=== PATIENT | male | born 1950 | race Caucasian/White ===

== ENCOUNTER → 2018-08-24 08:01 | Outpatient (CLI) | payer MEDICARE, OTHER, SELFPAY ==
[2018-08-24 10:43] LABS: Absolute Lymphocyte Count 1.34 X10^3/ul (0.83-4.51); Absolute Neutrophil Count 2.3 X10^3/uL (2.0-7.7); Basophil# 0.01 X10^3/uL; Basophil% 0.2 % (0-1); Eosinophil# 0.07 X10^3/uL; Eosinophils% 1.7 % (0-5); Hematocrit 42.5 % (40-54); Hemoglobin 14.3 g/dl (13.0-16.5); Lymphocyte # 1.34 X10^3/ul (4.0); Lymphocyte % 32.8 % (19-41); Mean Corp Hgb Conc 33.6 g/gl (32-36); Mean Corpuscular Hgb 30.4 pg (27.0-32.0); Mean Corpuscular Volume 90.4 fL (80-94); Monocyte# 0.38 X10^3/uL; Monocyte% 9.3 % (0-10); Neutrophil # 2.28 X10^3/uL (2.7-7.7); Platelet Count 303 K/mm3 (150-450); RBC Distribution Width CV 13.5 % (11.6-14.6); RBC Distribution Width SD 44.8 fl (35.1-43.9); White Blood Count 4.1 K/mm3 (4.4-11.0)
[2018-08-24 10:47] LABS: POSITIVE COUNT NO; POSITIVE DIFFERENTIAL NO; POSITIVE MORPHOLOGY NO
[2018-08-24 11:30] LABS: Cholesterol 163 mg/dL (200); High Density Lipoprotein 44 mg/dL; Triglycerides 87 mg/dL; Very Low Density Lipoprotein 17 mg/dL (5-40)
[2018-08-24 12:11] LABS: Hemoglobin A1c 5.9 % (4.2-6.3)
--- OUTSIDE RECORDS SUMMARY | 2018-10-10 03:04 | XMS RPT_ITS | Clinical Summary ---
:1950 Author Organization [place] [employer] [facility] Address [facility] [place] [address] Phone Care Team Providers Name Role Phone Chen Guzman Unavailable Conditions or Problems Problem Name Problem Onset Status Entry Provider Comment Standard Annotate Code Date Date Description Laceration S61.012A Active Dru De León Laceration without (ICD-10-CM) / Pascual PIKE without foreign body foreign body of left thumb of left thumb without without damage to damage to nail, initial nail, initial encounter encounter Laceration 087680575 Active Mili Diop Laceration - (SNOMED CT) / Hernán injury 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 Trigger 1348504 6519/09 Active Magda S Acquired finger of (SNOMED CT) / Wiseman trigger right ring 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 finger finger Carpal tunnel G56.02 Active Eligio S Carpal tunnel syndrome, (ICD-10-CM) / Rodrigo syndrome, left upper left upper limb limb Pain in left 08299634 Active Eligio S Pain in finger (SNOMED CT) / Rodrigo finger Trigger M65.342 Active Eligio S Trigger finger, left (ICD-10-CM) / Rodrigo finger, left ring finger ring finger Prepatellar 17794153 Active Eligio S Prepatellar bursitis of (SNOMED CT) / Rodrigo bursitis left knee Knee pain, 88054363 Active Eligio S Knee pain left (SNOMED CT) / Rodrigo ENCOUNTER FOR 32230260 Active Tremayne Mills Removal of REMOVAL OF (SNOMED CT) / Kwasi BOB suture SUTURES LACERATION, 148139656 Active Tremayne M Laceration of FOREHEAD (SNOMED CT) / Kwasi BOB forehead Medications Medication Instructions Start Date Stop Date Generic Name NDC Provider MELOXICAM 15 MG 1 po daily MELOXICAM [id number] Eligio Wallace Medications Administered No information available. Allergies, Adverse Reactions, Alerts Allergy Name Reaction Description Start Date Severity Status Provider PENCILLIN rash Mild Active Lucinda Clements Results Date Name Value Unit Range Flag Description Lab Report: Basic Metabolic Profile (BMP) ANION GAP 5 5-15 anion gap, serum CO2 29.0 mmol/L 21.0-32.0 carbon dioxide, venous blood CHLORIDE 101 mmol/L 98-107 chloride, serum POTASSIUM 4.4 mmol/L 3.5-5.1 potassium, serum SODIUM 135 mmol/L 136-145 L sodium, serum CALCIUM 9.1 mg/dL 8.5-10.1 calcium, serum BUN/CREAT 21.0 RATIO 10-20 H urea nitrogen/creatinine ratio, serum GFRAA 114 mL/min >60 Glomerular Filtration rate GFR EST 94 mL/min >60 estimated glomerular filtration rate CREATININE 0.86 mg/dL 0.70-1.30 creatinine, serum BUN 18 mg/dL 7-18 urea nitrogen, blood GLUCOSE SER 91 mg/dL 70-110 blood glucose Lab Report: CRP CRP 1.24 mg/dL Units converted. See lab report H C-reactive protein, serum for original value. Replaced Document: (P) Erythrocyte Sed Rate ESR 25 mm/h 0-20 H erythrocyte sedimentation rate Lab Report: CBC W/Diff, Automated LYMPHCT AUTO 1.24 X10 3/UL 10*3/mm3 0.83-4.51 lymphocyte count, blood, automated ANC 5.2 X10 3/UL 10*3/mm3 2.0-7.7 neutrophil count, blood IMM GRANU % 0.100 % 0.0-0.9 immature granulocytes, percentage of total cells, blood BASOPHIL % 0.3 % 0-1 basophils as percent of blood leukocytes EOSINOPHIL % 0.8 % 0-5 eosinophils as percent of blood leukocytes MONOCYTE % 7.9 % 0-10 monocytes as percent of blood leukocytes LYMPHS % 17.4 % 19-41 L lymphocytes as percent of blood leukocytes PMN % 73.5 % 47-70 H neutrophils as percent of blood leukocytes MPV 9.8 fL 6.2-12.0 mean platelet volume PLATELETS 459 10*3/mm3 150-450 H platelet count RDW-SD 42.1 fL 35.1-43.9 red blood cell distribution width, size density RDW 13.1 % 11.6-14.6 red blood cell distribution width MCHC RBC 33.7 G/GL g/dL 32-36 mean corpuscular hemoglobin concentration, RBC MCH 30.0 pg 27.0-32.0 mean corpuscular hemoglobin, RBC MCV 89.1 fL 80-94 mean corpuscular volume, RBC HCT 38.6 % 40-54 L hematocrit, blood HGB 13.0 g/dL 13.0-16.5 hemoglobin, blood RBC M/UL 4.33 10*6/uL 4.6-6.2 L red blood count WBC BLOOD 7.1 10*9/L 4.4-11.0 leukocyte (white blood cells) count, blood Office Visit: UC: cut L thumb on sheet metal [id number] Not indicated Smoking cessation education (procedure) SMOK STATUS Current every day smoker Tobacco use [facility] MEDS REVIEW Done Documentation of current medications (procedure) Nurse Visit: suture removal FALLRSKASSES No Fall risk assessment Plan of Care Type Date Detail Ref[facility], [address] [place] [address], [address] Referral [facility], [address] [place] [address], [address] Pending order *CBC with Differential Pending order *CRP - C-Reative Protein Pending order *Sedimentation Rate (ESR) Pending order *BMP Patient education LACERATION Procedures Code Procedure Name Date Entry Date CPT-95963 Wound Repair; 2.6 cm to 7.5 cm CPT-83041 Arthrocentesis, aspiration and/or injection; joint (fingers, toes) 0667-1 *BMP 58544-1 *CRP - C-Reative Protein 0184-1 *CBC with Differential 81908-6 *Sedimentation Rate (ESR) Vital Signs Date Name Value Unit Description BMI (Body Mass Index) 26.38 kg/m2 Body Mass Index [Ratio] Body Temperature 98.0 [degF] temperature E&M BP Diastolic 82 mm[Hg] blood pressure, diastolic - 8462-4 BP Systolic 120 mm[Hg] blood pressure, systolic - 8480-6 Heart Rate 85 /min pulse rate E&M - 8867-4 Height 70.25 [in_us] height E&M - 8302-2 Respiratory Rate 14 /min respiratory rate E&M - 9279-1 Weight Measured 185.2 [lb_av] weight E&M - 3141-9
--- OUTSIDE RECORDS SUMMARY | 2018-10-10 03:04 | XMS RPT_ITS | Clinical Summary ---
:1950 Author Organization [facility] Address [facility] [place] [address] Phone Care Team Providers Name Role Phone Mili Jim LPN Unavailable Unavailable Conditions or Problems Problem Name Problem Onset Status Entry Provider Comment Standard Annotate Code Date Date Description Laceration S61.012A Active Dru De León Laceration without (ICD-10-CM) / Pascual PIKE without foreign body foreign body of left thumb of left thumb without without damage to damage to nail, initial nail, initial encounter encounter Laceration 741416990 Active Mili Diop Laceration - (SNOMED CT) / Hernán injury 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 Trigger 3986327 9330/09 Active Magda S Acquired finger of (SNOMED CT) / Wsieman trigger right ring 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 finger finger Carpal tunnel G56.02 Active Eligio S Carpal tunnel syndrome, (ICD-10-CM) / Rodrigo syndrome, left upper left upper limb limb Pain in left 33346839 Active Eligio S Pain in finger (SNOMED CT) / Rodrigo finger Trigger M65.342 Active Eligio S Trigger finger, left (ICD-10-CM) / Rodrigo finger, left ring finger ring finger Prepatellar 78277059 Active Eligio S Prepatellar bursitis of (SNOMED CT) / Rodrigo bursitis left knee Knee pain, 52536159 Active Eligio S Knee pain left (SNOMED CT) / Rodrigo ENCOUNTER FOR 65968780 Active Tremayne Mills Removal of REMOVAL OF (SNOMED CT) / Kwasi BOB suture SUTURES LACERATION, 003975205 Active Tremayne Mills Laceration of FOREHEAD (SNOMED CT) / Kwasi BOB forehead Medications Medication Instructions Start Date Stop Date Generic Name NDC Provider MELOXICAM 15 MG 1 po daily MELOXICAM [id number] Eligio Wallace Medications Administered No information available. Allergies, Adverse Reactions, Alerts Allergy Name Reaction Description Start Date Severity Status Provider PENCILLIN rash Mild Active Lucinda Farzana Clements Results Date Name Value Unit Range [...] STATUS Current every day smoker Tobacco use [facility] MEDS REVIEW Done Documentation of current medications (procedure) Nurse Visit: suture removal FALLRSKASSES No Fall risk assessment Plan of Care Type Date Detail Appointment 09:45 AM Eligio Wallace, [address] [place] [address], [address], [place], [address], Pending order *CBC with Differential Pending order *CRP - C-Reative Protein Pending order *Sedimentation Rate (ESR) Pending order *BMP Patient education LACERATION Procedures Code Procedure Name Date Entry Date CPT-72543 Wound Repair; 2.6 cm to 7.5 cm CPT-75168 Arthrocentesis, aspiration and/or injection; joint (fingers, toes) 0667-1 *BMP 40165-6 *CRP - C-Reative Protein 0184-1 *CBC with Differential 78192-7 *Sedimentation Rate (ESR) Vital Signs Date Name [...]
--- OUTSIDE RECORDS SUMMARY | 2018-10-10 03:04 | XMS RPT_ITS | Clinical Summary ---
:1950 Author Organization [facility] Address [address] [place] [address] Phone Care Team Providers Name Role Phone Chen Guzman Unavailable Conditions or Problems Problem Name Problem Onset Status Entry Provider Comment Standard Annotate Code Date Date Description Orthopaedic 793659083 Active Eligio S Aftercare aftercare (SNOMED CT) / Rodrigo Laceration S61.012A Active Dru De León Laceration without (ICD-10-CM) / Pascual PIKE without foreign body foreign body of left thumb of left thumb without without damage to damage to nail, initial nail, initial encounter encounter Laceration 475237389 Active Mili Diop Laceration - (SNOMED CT) / Hernán injury 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 4428092 2580/09 Active Magda S Acquired finger of (SNOMED CT) / Wiseman trigger right ring 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 finger finger Carpal tunnel G56.02 Active Eligio S Carpal tunnel syndrome, (ICD-10-CM) / Rodrigo syndrome, left upper left upper limb limb Pain in left 17812779 Active Eligio S Pain in finger (SNOMED CT) / Rodrigo finger Trigger M65.342 Active Eligio S Trigger finger, left (ICD-10-CM) / Rodrigo finger, left ring finger ring finger Prepatellar 73286557 Active Eligio S Prepatellar bursitis of (SNOMED CT) / Rodrigo bursitis left knee Knee pain, 83940447 Active Eligio S Knee pain left (SNOMED CT) / Rodrigo ENCOUNTER FOR 00357529 Active Tremayne Mills Removal of REMOVAL OF (SNOMED CT) / Kwasi BOB suture SUTURES LACERATION, 651472413 Active Tremayne Mills Laceration of FOREHEAD (SNOMED CT) Kwasi BOB forehead Medications Medication Instructions Start Date Stop Date Generic Name NDC Provider MELOXICAM 15 MG 1 po daily MELOXICAM [id number] Eligio Morales [employer]en Rodrigo Medications Administered No information available. Allergies, Adverse [...] [id number]_NOSMKC Not indicated Smoking cessation education (procedure) Nurse Visit: suture removal FALLRSKASSES No Fall risk assessment Office Visit MEDS REVIEW Done Documentation of current medications (procedure) SMOK STATUS Current every day smoker Tobacco use [facility] Plan of Care Type Date Detail Referral [facility], [address] [place] [address], [address] Referral [facility], [address] [place] [address], [address] Pending order *CBC with Differential Pending order *CRP - C-Reative Protein Pending order *Sedimentation Rate (ESR) Pending order *BMP Patient education LACERATION Procedures Code Procedure Name Date Entry Date CPT-12430 Wound Repair; 2.6 cm to 7.5 cm CPT-19673 Arthrocentesis, aspiration and/or injection; joint (fingers, toes) 0667-1 *BMP 89379-2 *CRP - C-Reative Protein 0184-1 *CBC with Differential 37202-9 *Sedimentation Rate (ESR) Vital Signs Date Name [...]
--- OUTSIDE RECORDS SUMMARY | 2018-10-10 03:04 | XMS RPT_ITS | Clinical Summary ---
:1950 Author Organization [employer] [facility] Address [address] [place] [address] Phone Care Team Providers Name Role Phone Bowen JAMES, Magda S Unavailable Conditions or Problems Problem Name Problem Onset Status Entry Provider Comment Standard Annotate Code Date Date Description Trigger 3177599 1621/09 Active Magda S Acquired finger of (SNOMED CT) / Wiseman trigger right ring CT TECH finger finger Carpal tunnel G56.02 Active Eligio S Carpal tunnel syndrome, (ICD-10-CM) / Rodrigo syndrome, left upper left upper limb limb Pain in left 25220924 Active Eligio S Pain in finger (SNOMED CT) / Rodrigo finger Trigger M65.342 Active Eligio S Trigger finger, left (ICD-10-CM) / Rodrigo finger, left ring finger ring finger Prepatellar 41159128 Active Eligio S Prepatellar bursitis of (SNOMED CT) / Rodrigo bursitis left knee Knee pain, 64081456 Active Eligio S Knee pain left (SNOMED CT) / Rodrigo ENCOUNTER FOR 26899645 Active Tremayne Mills Removal of REMOVAL OF (SNOMED CT) / Kwasi BOB suture SUTURES LACERATION, 878140092 Active Tremayne Laceration of FOREHEAD (SNOMED CT) / Kwasi BOB forehead Medications Medication Instructions Start Date Stop Date Generic Name NDC Provider MELOXICAM 15 MG 1 po daily MELOXICAM [id number] Eligio S TABS Rodrigo Medications Administered No information available. Allergies, Adverse Reactions, Alerts Allergy Name Reaction Description Start Date Severity Status Provider PENCILLIN rash Mild Active Lucinda A Clements Results Date Name Value Unit Range [...] leukocyte (white blood cells) count, blood Office Visit SMOK ADVICE yes Smoking cessation education (procedure) MEDS REVIEW Done Documentation of current medications (procedure) SMOK STATUS Current every day smoker Tobacco use [facility] Plan of Care Type Date Detail Appointment 12:00 PM Eligio Wallace, [address] [place] [address], [address], [place], [address], Pending order *CBC with Differential Pending order *CRP - C-Reative Protein Pending order *Sedimentation Rate (ESR) Pending order *BMP Procedures Code Procedure Name Date Entry Date CPT-26412 Arthrocentesis, aspiration and/or injection; joint (fingers, toes) 0667-1 *BMP 43857-3 *CRP - C-Reative Protein 0184-1 *CBC with Differential 38769-2 *Sedimentation Rate (ESR) Vital Signs Date Name Value Unit Description BMI (Body Mass Index) 26.78 kg/m2 Body Mass Index [Ratio] Weight Measured 188 [lb_av] weight E&M - 3141-9 Body Temperature 96.8 [degF] temperature E&M BP Diastolic 84 mm[Hg] blood pressure, diastolic - 8462-4 BP Systolic 122 mm[Hg] blood pressure, systolic - 8480-6 Heart Rate 66 /min pulse rate E&M - 8867-4 Height 70.25 [in_us] height E&M - 8302-2 Respiratory Rate 16 /min respiratory rate E&M - 9279-1
--- OUTSIDE RECORDS SUMMARY | 2018-10-10 03:05 | XMS RPT_ITS | Clinical Summary ---
:1950 Author Organization [employer] [facility] Address [address] [place] [address] Phone Care Team Providers Name Role Phone Chen Guzman Unavailable Conditions or Problems Problem Name Problem Onset Status Entry Provider Comment Standard Annotate Code Date Date Description Orthopaedic 301391531 Active Eligio S Aftercare aftercare (SNOMED CT) / Rodrigo Laceration S61.012A Active Dru De León Laceration without (ICD-10-CM) / Pascual PIKE without foreign body foreign body of left thumb of left thumb without without damage to damage to nail, initial nail, initial encounter encounter Laceration 344214892 Active Mili Diop Laceration - (SNOMED CT) / Hernán injury 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 0317618 9871/09 Active Magda S Acquired finger of (SNOMED CT) / Wiseman trigger right ring 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 finger finger Carpal tunnel G56.02 Active Eligio S Carpal tunnel syndrome, (ICD-10-CM) / Rodrigo syndrome, left upper left upper limb limb Pain in left 46644126 Active Eligio S Pain in finger (SNOMED CT) / Rodrigo finger Trigger M65.342 Active Eligio S Trigger finger, left (ICD-10-CM) / Rodrigo finger, left ring finger ring finger Prepatellar 69223710 Active Eligio S Prepatellar bursitis of (SNOMED CT) / Rodrigo bursitis left knee Knee pain, 46411094 Active Eligio S Knee pain left (SNOMED CT) / Rodrigo ENCOUNTER FOR 44532638 Active Tremayne Mills Removal of REMOVAL OF (SNOMED CT) / Kwasi BOB suture SUTURES LACERATION, 380321866 Active Tremayne Mills Laceration of FOREHEAD (SNOMED CT) Kwasi BOB forehead Medications Medication Instructions Start Date Stop Date Generic Name NDC Provider MELOXICAM 15 MG 1 po daily MELOXICAM [id number] Eligio Morales TABCarmen Rodrigo Medications Administered No [...] STATUS Current every day smoker Tobacco use [facility] Plan of Care Type Date Detail Referral [facility], [address] [place] [address], [address] Referral [facility] Therapy [facility], [address] [place] [address], [address] Pending order *CBC with Differential Pending order *CRP - C-Reative Protein Pending order *Sedimentation Rate (ESR) Pending order *BMP Patient education LACERATION Procedures Code Procedure Name Date Entry Date CPT-34010 Wound Repair; 2.6 cm to 7.5 cm CPT-80836 Arthrocentesis, aspiration and/or injection; joint (fingers, toes) 0667-1 *BMP 54429-8 *CRP - C-Reative Protein 0184-1 *CBC with Differential 37362-5 *Sedimentation Rate (ESR) Vital Signs Date Name [...]
--- OUTSIDE RECORDS SUMMARY | 2018-10-10 03:05 | XMS RPT_ITS | Clinical Summary ---
:1950 Author Organization [place] [facility] Address [facility] [place] [address] Phone Care Team Providers Name Role Phone Chen Guzman Unavailable Conditions or Problems Problem Name Problem Onset Status Entry Provider Comment Standard Annotate Code Date Date Description Carpal tunnel G56.02 Active Eligio S Carpal tunnel syndrome, (ICD-10-CM) / Rodrigo syndrome, left upper left upper limb limb Pain in left 58341547 Active Eligio S Pain in finger (SNOMED CT) / Rodrigo finger Trigger M65.342 Active Eligio S Trigger finger, left (ICD-10-CM) / Rodrigo finger, left ring finger ring finger Prepatellar 52832546 Active Eligio S Prepatellar bursitis of (SNOMED CT) / Rodrigo bursitis left knee Knee pain, 88085011 Active Eligio S Knee pain left (SNOMED CT) / Rodrigo ENCOUNTER FOR 21210175 Active [facility] Removal of REMOVAL OF (SNOMED CT) / Kwasi BOB suture SUTURES LACERATION, 935555404 Active [facility] Laceration of FOREHEAD (SNOMED CT) / Kwasi BOB forehead Medications Medication Instructions Start Date Stop Date Generic Name NDC Provider MELOXICAM 15 MG 1 po daily MELOXICAM [id number] Eligio S TABS Rodrigo Medications Administered No [...] (white blood cells) count, blood Office Visit MEDS REVIEW Done Documentation of current medications (procedure) SMOK STATUS Current every day smoker Tobacco use [facility] Plan of Care Type Date Detail Pending order *CBC with Differential Pending order *CRP - C-Reative Protein Pending order *Sedimentation Rate (ESR) Pending order *[facility] Procedures Code Procedure Name Date Entry Date [facility]-27116 Arthrocentesis, aspiration and/or injection; joint (fingers, toes) 0667-1 *BMP 28186-2 *CRP - C-Reative Protein 0184-1 *CBC with Differential 63710-9 *Sedimentation Rate (ESR) Vital Signs Date Name [...]
--- OUTSIDE RECORDS SUMMARY | 2018-10-10 03:05 | XMS RPT_ITS ---
:1950 Author Organization [place] [employer] [facility] Address [facility] [place] [address] Phone Care Team Providers Name Role Phone Eligio Wallace Unavailable Conditions or Problems Problem Name Problem Onset Status Entry Provider Comment Standard Annotate Code Date Date Description Pain in left 30979632 Active Eligio Morales Pain in finger (SNOMED CT) / Rodrigo finger Trigger M65.342 Active Eligio S Trigger finger, left (ICD-10-CM) / Rodrigo finger, left ring finger ring finger Prepatellar 60292771 Active Eligio S Prepatellar bursitis of (SNOMED CT) / Rodrigo bursitis left knee Knee pain, 11366214 Active Eligio S Knee pain left (SNOMED CT) / Rodrigo ENCOUNTER FOR 61071690 Active [facility] Removal of REMOVAL OF (SNOMED CT) / Kwasi BOB suture SUTURES LACERATION, 477930588 Active [facility] Laceration of FOREHEAD (SNOMED CT) / Kwasi BOB forehead Medications Medication Instructions Start Date Stop Date Generic Name ND Provider MELOXICAM 15 MG 1 po daily MELOXICAM [id number] Eligio Morales TABS Rodrigo Medications Administered No information available. [...] blood cells) count, blood Office Visit SMOK STATUS Current every day smoker Tobacco use [facility] MEDS REVIEW Done Documentation of current medications (procedure) Plan of Care Type Date Detail Appointment 09:45 AM Eligio Wallace, [address] [place] [address], [address], [address], Appointment 09:30 AM Eligio Wallace, [address] [place] [address], [place] [address], [place], [address], Pending order *CBC with Differential Pending order *CRP - C-Reative Protein Pending order *Sedimentation Rate (ESR) Pending order *BMP Procedures Code Procedure Name Date Entry Date CPT-47801 Arthrocentesis, aspiration and/or injection; joint (fingers, toes) 0667-1 *BMP 80417-2 *CRP - C-Reative Protein 0184-1 *CBC with Differential 72620-4 *Sedimentation Rate (ESR) Vital Signs Date Name [...]
--- OUTSIDE RECORDS SUMMARY | 2018-10-10 03:05 | XMS RPT_ITS ---
:1950 Author Organization [facility] Care Team Providers Name Role Phone Romel Mazariegos Attending Unavailable Romel Mazariegos Primary Care Unavailable PROBLEMS PROBLEMS No Problem Records FoundPROCEDURES PROCEDURES No Procedure Records FoundRESULTS RESULTS CBC W/DIFF, AUTOMATED Collected: 08/24/2018 Status: F Source: [place] 8:06 AM [facility] REPOSITORY TYPE CODE TESTS RESULT OUT OF RANGE REFERENCE UNITS LAB L100.1000 4.4-11.0 K/mm3 Low WBC 4.1 LAB L100.1200 4.6-6.2 M/mm3 Normal RBC 4.70 LAB L100.1300 13.0-16.5 g/dl Normal HGB 14.3 LAB L100.1400 40-54 % Normal HCT 42.5 LAB L100.1500 80-94 fL Normal MCV 90.4 LAB L100.1600 27.0-32.0 pg Normal MCH 30.4 LAB L100.1700 32-36 g/gl Normal MCHC 33.6 LAB L100.1810 11.6-14.6 % Normal RDW CV 13.5 LAB L100.1820 35.1-43.9 fl High RDW SD 44.8 LAB L100.1900 150-450 K/mm3 Normal PLT 303 LAB L100.2000 6.2-12.0 fl Normal MPV 10.0 LAB L100.2100 47-70 % Normal NEUT% 56.0 LAB L100.2200 19-41 % Normal LY% 32.8 LAB L100.2300 0-10 % Normal MONO% 9.3 LAB L100.2400 0-5 % Normal EO% 1.7 LAB L100.2500 0-1 % Normal BASO% 0.2 LAB L100.2550 0.0-0.9 % Normal IM GRAN % 0.000 Result Comment: IG% - Immature Granulocytes (promyelocytes, myelocytes and metamyelocytes) > 1% indicates that a LEFT SHIFT is Present. LAB L100.2620 2.0-7.7 X10 3/uL Normal Absolute Neut 2.3 LAB L100.2720 0.83-4.51 X10 3/ul Normal Absolute Lymph 1.34 Performed By: #### L100.0100, L500.4100, L501.9910, L501.9985 #### [facility] [address] [facility]. [place], [place], [id number] LIPID PROFILE Collected: 08/24/2018 Status: F Source: [place] 8:06 AM [facility] REPOSITORY TYPE CODE TESTS RESULT OUT OF RANGE REFERENCE UNITS LAB L501.4900 200 mg/dL Normal CHOL 163 Result Comment: <200 mg/dL Desirable 200-240 mg/dL Borderline >240 mg/dL High Risk LAB L501.5000 mg/dL Normal TRIG 87 Result Comment: The drugs N-Acetylcysteine and Metamizole may falsely depress this assay. Serum Triglycerides Reference Interval Normal <150 mg/dL Borderline high 150 - 199 mg/dL High 200 - 499 mg/dL Very High > or = 500 mg/dL LAB L501.6400 mg/dL Normal HDL 44 Result Comment: The drugs N-Acetylcysteine and Metamizole may falsely depress this assay. Reference Range HDL <40 mg/dL Low HDL Cholesterol HDL >or= 60 mg/dL High HDL Cholesterol LAB L501.6500 0-130 mg/dL Normal LDL 102 LAB L501.6600 5-40 mg/dL Normal VLDL 17 Performed By: #### L100.0100, L500.4100, L501.9910, L501.9985 #### [facility] [address] [place], [place], [id number] PSA,TOTAL - ANNUAL Collected: 08/24/2018 Status: F Source: [place] SCREEN 8:06 AM [facility] REPOSITORY TYPE CODE TESTS RESULT OUT OF RANGE REFERENCE UNITS LAB L501.9910 0.00-4.00 ng/mL Normal PSA,TOT 0.30 SCREEN Result Comment: This test was performed using the TPSA assay method for the [employer] chemistry system. Values obtained with different assay methods cannot be used interchangably. When changing PSA assays in the course of monitoring a patient, additional sequential testing should be carried out to confirm baseline values. Performed By: #### L100.0100, L500.4100, L501.9910, L501.9985 #### [facility] [address] [place], [address] HEMOGLOBIN A1C Collected: 08/24/2018 Status: F Source: [place] 8:06 AM [facility] REPOSITORY TYPE CODE TESTS RESULT OUT OF RANGE REFERENCE UNITS LAB L501.9985 4.2-6.3 % Normal HGB A1C 5.9 Performed By: #### L100.0100, L500.4100, L501.9910, L501.9985 #### [facility] [address] [place], [address] ALLERGIES ALLERGIES DATE TYPE / CODE NAME / CODE REACTION SEVERITY SOURCE 06/25/2017 Drug Penicillins/ Rash Unknown [facility] Allergy/4160 [id number]( Hospital [address]1417(SNOMED XNORM) Repository CT) ENCOUNTERS ENCOUNTERS ADMIT/DISCHARGE ACCOUNT ADMITTING ENCOUNTER LOCATION SOURCE NUMBER CLASS 08/24/2018 [id number] Ambulatory [address] ing:MFPLAB Repository PAYERS PAYERS ENCOUNTER GUARANTOR PAYER SUBSCRIBER SOURCE 08/24/2018 Randy Barry Primary Randy Nesbitt [id number] Malcolm Insurance:MEDICARE HorstDOB: [place], [place] PART A [facility] [id number] Hospital 399[address]Ddb: [phone]) Number: Repository [phone] () [id number] Date:2018-08-24 08/24/2018 Secondary Randy Nesbitt Insurance:EVERENCE HorstDOB: [facility] [id number] Number: Repository [id number] Date:[id number] [place] [address] [place] [id number]: 08/24/2018 Tertiary NOT GIVENUNK Barry Insurance:SELF [facility]Y [facility] Number: Effective Repository Date:2018-08-24
--- OUTSIDE RECORDS SUMMARY | 2018-10-10 03:05 | XMS RPT_ITS | Clinical Summary ---
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 finger finger Carpal tunnel G56.02 Active Eligio S Carpal tunnel syndrome, (ICD-10-CM) / Rodrigo syndrome, left upper left upper limb limb Pain in left 95679197 Active Eligio S Pain in finger (SNOMED CT) / Rodrigo finger Trigger M65.342 Active Eligio S Trigger finger, left (ICD-10-CM) / Rodrigo finger, left ring finger ring finger Prepatellar 32711820 Active Eligio S Prepatellar bursitis of (SNOMED CT) / Rodrigo bursitis left knee Knee pain, 94547579 Active Eligio S Knee pain left (SNOMED CT) / Rodrigo ENCOUNTER FOR 89986920 Active [facility] Removal of REMOVAL OF (SNOMED CT) / Kwasi BOB suture SUTURES LACERATION, 543030030 Active [facility] Laceration of FOREHEAD (SNOMED CT) / Kwasi BOB forehead Medications Medication Instructions Start Date Stop Date Generic Name NDC Provider MELOXICAM 15 MG 1 po daily MELOXICAM [id number] Eligio S TABS Rodrigo Medications Administered No [...] STATUS Current every day smoker Tobacco use [facility] Plan of Care Type Date Detail Appointment 12:00 PM Eligio Wallace, [address] [place] [address], [address], [place], [address], Pending order *CBC with Differential Pending order *CRP - C-Reative Protein Pending order *Sedimentation Rate (ESR) Pending order *[facility] Procedures Code Procedure Name Date Entry Date CPT-00457 Arthrocentesis, aspiration and/or injection; joint (fingers, toes) 0667-1 *BMP 38366-6 *CRP - C-Reative Protein 0184-1 *CBC with Differential 68618-2 *Sedimentation Rate (ESR) Vital Signs Date Name [...]
--- OUTSIDE RECORDS SUMMARY | 2018-10-10 03:05 | XMS RPT_ITS | Clinical Summary ---
:1950 Author Organization [place] [employer] [facility] Address [facility] [place] [address] Phone Care Team Providers Name Role Phone Chen Guzman Unavailable Conditions or Problems Problem Name Problem Onset Status Entry Provider Comment Standard Annotate Code Date Date Description Carpal tunnel G56.02 Active Eligio S Carpal tunnel syndrome, (ICD-10-CM) / Rodrigo syndrome, left upper left upper limb limb Pain in left 40931927 Active Eligio S Pain in finger (SNOMED CT) / Rodrigo finger Trigger M65.342 Active Eligio S Trigger finger, left (ICD-10-CM) / Rodrigo finger, left ring finger ring finger Prepatellar 22036316 Active Eligio S Prepatellar bursitis of (SNOMED CT) / Rodrigo bursitis left knee Knee pain, 41537913 Active Eligio S Knee pain left (SNOMED CT) / Rodrigo ENCOUNTER FOR 45551716 Active [facility] Removal of REMOVAL OF (SNOMED CT) / Kwasi BOB suture SUTURES LACERATION, 027793029 Active [facility] Laceration of FOREHEAD (SNOMED CT) / Kwasi BOB forehead Medications Medication Instructions Start Date Stop Date Generic Name NDC Provider MELOXICAM 15 MG 1 po daily MELOXICAM [id number] Eligio S TABS Rodrigo Medications Administered No [...] STATUS Current every day smoker Tobacco use [facility] Plan of Care Type Date Detail Appointment 09:30 AM Eligio Wallace, [address] [place] [address], [address], [place], [address], Pending order *CBC with Differential Pending order *CRP - C-Reative Protein Pending order *Sedimentation Rate (ESR) Pending order *BMP Procedures Code Procedure Name Date Entry Date CPT-00272 Arthrocentesis, aspiration and/or injection; joint (fingers, toes) 0667-1 *BMP 33065-9 *CRP - C-Reative Protein 0184-1 *CBC with Differential 54072-8 *Sedimentation Rate (ESR) Vital Signs Date Name [...]
--- OUTSIDE RECORDS SUMMARY | 2018-10-10 03:05 | XMS RPT_ITS | Clinical Summary ---
:1950 Author Organization [place] [employer] [facility] Address [facility] [place] [address] Phone Care Team Providers Name Role Phone Chen Guzman Unavailable Conditions or Problems Problem Name Problem Onset Status Entry Provider Comment Standard Annotate Code Date Date Description Carpal tunnel G56.02 Active Eligio S Carpal tunnel syndrome, (ICD-10-CM) / Rodrigo syndrome, left upper left upper limb limb Pain in left 59036653 Active Eligio S Pain in finger (SNOMED CT) / Rodrigo finger Trigger M65.342 Active Eligio S Trigger finger, left (ICD-10-CM) / Rodrigo finger, left ring finger ring finger Prepatellar 39836854 Active Eligio S Prepatellar bursitis of (SNOMED CT) / Rodrigo bursitis left knee Knee pain, 55777769 Active Eligio S Knee pain left (SNOMED CT) / Rodrigo ENCOUNTER FOR 66321845 Active [facility] Removal of REMOVAL OF (SNOMED CT) / Kwasi BOB suture SUTURES LACERATION, 199030149 Active [facility] Laceration of FOREHEAD (SNOMED CT) / Kwasi BOB forehead Medications Medication Instructions Start Date Stop Date Generic Name NDC Provider MELOXICAM 15 MG 1 po daily MELOXICAM [id number] Eligio S TABS Rodrigo Medications Administered No [...] Date Detail Appointment 09:30 AM Eligio Wallace, [address] [place] [address], [address], [place], [address], Pending order *CBC with Differential Pending order *CRP - C-Reative Protein Pending order *Sedimentation Rate (ESR) Pending order *BMP Procedures Code Procedure Name Date Entry Date CPT-27908 Arthrocentesis, aspiration and/or injection; joint (fingers, toes) 0667-1 *BMP 26522-6 *CRP - C-Reative Protein 0184-1 *CBC with Differential 26456-0 *Sedimentation Rate (ESR) Vital Signs Date Name [...]
--- OUTSIDE RECORDS SUMMARY | 2018-10-10 03:05 | XMS RPT_ITS | Clinical Summary ---
:1950 Author Organization [place] [email or web address] [facility] Address [facility] [place] [address] Phone Care Team Providers Name Role Phone Chen Guzman Unavailable Conditions or Problems Problem Name Problem Onset Status Entry Provider Comment Standard Annotate Code Date Date Description Pain in left 90800102 Active Eligio S Pain in finger (SNOMED CT) / Rodrigo finger Trigger M65.342 Active Eligio S Trigger finger, left (ICD-10-CM) / Rodrigo finger, left ring finger ring finger Prepatellar 09815284 Active Eligio S Prepatellar bursitis of (SNOMED CT) / Rodrigo bursitis left knee Knee pain, 54216150 Active Eligio S Knee pain left (SNOMED CT) / Rodrigo ENCOUNTER FOR 67221764 Active [facility] Removal of REMOVAL OF (SNOMED CT) / Kwasi BOB suture SUTURES LACERATION, 563137277 Active [facility] Laceration of FOREHEAD (SNOMED CT) / Kwasi BOB forehead Medications Medication Instructions Start Date Stop Date Generic Name [facility] Provider MELOXICAM 15 MG 1 po daily MELOXICAM [id number] Eligio S TABS Rodrigo Medications Administered No [...] Date Detail Appointment 09:30 AM Eligio Wallace, [address] [place] [address], [address], [place], [address], Pending order *CBC with Differential Pending order *CRP - C-Reative Protein Pending order *Sedimentation Rate (ESR) Pending order *[facility] Procedures Code Procedure Name Date Entry Date CPT-88894 Arthrocentesis, aspiration and/or injection; joint (fingers, toes) 0667-1 *BMP 15364-4 *CRP - C-Reative Protein 0184-1 *CBC with Differential 11374-2 *Sedimentation Rate (ESR) Vital Signs Date Name [...]
--- OUTSIDE RECORDS SUMMARY | 2018-10-10 03:05 | XMS RPT_ITS | Clinical Summary ---
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 Carpal tunnel G56.02 Active Eligio S Carpal tunnel syndrome, (ICD-10-CM) / Rodrigo syndrome, left upper left upper limb limb Pain in left 52634271 Active Eligio S Pain in finger (SNOMED CT) / Rodrigo finger Trigger M65.342 Active Eligio S Trigger finger, left (ICD-10-CM) / Rodrigo finger, left ring finger ring finger Prepatellar 00901083 Active Eligio S Prepatellar bursitis of (SNOMED CT) / Rodrigo bursitis left knee Knee pain, 12224058 Active Eligio S Knee pain left (SNOMED CT) / Rodrigo ENCOUNTER FOR 26835179 Active [facility] Removal of REMOVAL OF (SNOMED CT) / Kwasi BOB suture SUTURES LACERATION, 999608883 Active [facility] Laceration of FOREHEAD (SNOMED CT) / Kwasi BOB forehead Medications Medication Instructions Start Date Stop Date Generic Name NDC Provider MELOXICAM 15 MG 1 po daily MELOXICAM [id number] Eligio Wallace Medications Administered No information available. [...] [id number]_[id number] Not indicated Smoking cessation education (procedure) FALLRSKASSES No Fall risk assessment SMOK STATUS Current every day smoker Tobacco use [facility] MEDS REVIEW Done Documentation of current medications (procedure) Plan of Care Type Date Detail Appointment 02:15 PM Dru PIKE, [address] [place] [address], [address], [place], [address], Appointment 07:00 AM Dru PIKE, [address] [facility], [address], [place], [address], Appointment 12:00 PM Eligio Wallace, [address] [facility], [address], [place], [address], Pending order *CBC with Differential Pending order *CRP - C-Reative Protein Pending order *Sedimentation Rate (ESR) Pending order *BMP Patient education LACERATION Procedures Code Procedure Name Date Entry Date CPT-02499 Wound Repair; 2.6 cm to 7.5 cm CPT-22049 Arthrocentesis, aspiration and/or injection; joint (fingers, toes) 0667-1 *BMP 23831-0 *CRP - C-Reative Protein 0184-1 *CBC with Differential 11957-7 *Sedimentation Rate (ESR) Vital Signs Date Name Value Unit Description BMI (Body Mass Index) 25.67 kg/m2 Body Mass Index [Ratio] Body Temperature 98.8 [degF] temperature E&M BP Diastolic 76 mm[Hg] blood pressure, diastolic - 8462-4 BP Systolic 140 mm[Hg] blood pressure, systolic - 8480-6 Heart Rate 91 /min pulse rate E&M - 8867-4 Height 70.25 [in_us] height E&M - 8302-2 Respiratory Rate 13 /min respiratory rate E&M - 9279-1 Weight Measured 180.2 [lb_av] weight E&M - 3141-9
== END ==
PROVIDERS: Family Provider Family Medicine; PCP Family Medicine; Visit Provider Family Medicine
DX: R73.01 Impaired fasting glucose (principal); I73.00 Raynaud's syndrome without gangrene; Z12.5 Encounter for screening for malignant neoplasm of prostate
CPT/HCPCS: 36415; 80061; 83036; 84153; 85025; G0103

== ENCOUNTER → 2019-08-04 06:51 | Outpatient (CLI) | payer MEDICARE, OTHER, SELFPAY ==
[2017-06-29 11:08] VITALS: BMI 27.0
--- NOTE | 2019-08-04 07:08 | RAD_ITS ---
STUDY: X-RAY - CERVICAL SPINE REASON FOR EXAM: Male, 68 years old. Chronic neck pain TECHNIQUE: 5 view(s) of the cervical spine were obtained. COMPARISON: Prior study of 09/23/2012 FINDINGS: Study is limited as AP open-mouth and odontoid views were not obtained. Odontoid appears within normal limits on the lateral and oblique projections. Normal cervical lordosis. There is endplate spondylosis of C5-C7. There is moderately severe narrowing of the C6-7 disc space. There is mild narrowing of the C3-4 disc space. There is multi-level osseous foraminal stenosis. The soft tissue structures are unremarkable. RAD/Cerv Spine 4 or 5 Views IMPRESSION: Cervical degenerative changes as detailed above representing new interval findings from the previous study. Electronically Signed: Meet Yanez MD at 16:56 EST , Service support ,
[2019-08-04 07:25] LABS: Absolute Lymphocyte Count 1.45 X10^3/uL (0.83-4.51); Absolute Neutrophil Count 2.1 X10^3/uL (2.0-7.7); Basophil# 0.02 X10^3/uL; Basophil% 0.5 % (0-1); Eosinophil# 0.15 X10^3/uL; Eosinophils% 3.6 % (0-5); Hematocrit 45.1 % (40-54); Hemoglobin 15.2 g/dL (13.0-16.5); Lymphocyte # 1.45 X10^3/ul (4.0); Mean Corp Hgb Conc 33.7 g/dL (32-36); Mean Corpuscular Hgb 30.3 pg (27.0-32.0); Mean Platelet Vol. 9.4 fl (6.2-12.0); Monocyte# 0.45 X10^3/uL; Monocyte% 10.9 % (0-10); NRBC Flagged by Analyzer 0 % (0-5); Neutrophil # 2.06 X10^3/uL (2.7-7.7); Neutrophil % 49.8 % (47-70); Platelet Count 244 K/mm3 (150-450); RBC Distribution Width CV 12.8 % (11.6-14.6); RBC Distribution Width SD 42.1 fl (35.1-43.9); Red Blood Count 5.01 M/mm3 (4.6-6.2); White Blood Count 4.1 K/mm3 (4.4-11.0)
[2019-08-04 08:04] LABS: ALB/GLOB Ratio 1.1 RATIO (0.9-2.4); AST(SGOT) 20 U/L (15-37); Alanine Aminotransfer ALT/SGPT 29 U/L (16-61); Albumin, Serum 3.9 g/dL (3.2-5.0); Alkaline Phosphatase 82 U/L (45-117); Anion Gap 6 (5-15); BUN 14 mg/dL (7-18); BUN/Creat Ratio 14.9 RATIO (10-20); Calcium,Total 8.8 mg/dL (8.5-10.1); Chloride 106 mmol/L (98-107); Cholesterol 157 mg/dL (200); Creatinine, Serum 0.94 mg/dL (0.70-1.30); EST Glomerular Filtration Rate 84 mL/min (>60); Est Glom Filt Rate - Afr Amer 102 mL/min (>60); Globulin 3.5 g/dL (2.2-4.2); Glucose 98 mg/dL (74-106); High Density Lipoprotein 47 mg/dL; Potassium 4.4 mmol/L (3.5-5.1); Protein, Total 7.4 g/dL (6.4-8.2); Sodium Level 140 mmol/L (136-145); Triglycerides 59 mg/dL; Very Low Density Lipoprotein 12 mg/dL (5-40)
== END ==
PROVIDERS: Family Provider Family Medicine; PCP Family Medicine; Referring Provider Family Medicine; Visit Provider Family Medicine
DX: Z00.00 Encounter for general adult medical examination without abnormal findings (principal); G54.0 Brachial plexus disorders
CPT/HCPCS: 36415; 72050; 80053; 80061; 85025

== ENCOUNTER → 2019-10-06 13:13 | Outpatient (CLI) | payer SELFPAY ==
[2019-09-29 11:19] VITALS: BMI 27.0
--- NOTE | 2019-10-06 13:16 | CT_ITS ---
STUDY: CARDIAC CALCIUM SCORING - CT CHEST REASON FOR EXAM: Male, 69 years old. OVER READ ONLY!!! FAMILY HX ISCHEMIC HEART DX RADIATION DOSAGE (If Supplied By Facility): CTDIvol = ( 12.19 ) mGy, DLP = ( 243.79 ) mGycm TECHNIQUE: Axial non-enhanced images were acquired through the heart for the sole purpose of measuring coronary artery calcium. Individualized dose optimization techniques were used for this CT. COMPARISON: None. FINDINGS: Visualized surrounding anatomy: Normal. Please see the patient''s medical record for the personalized calcium score. CT/Limited Chest CT w/CCTA IMPRESSION: Please see the patient''s medical record for the personalized calcium score. Please go to: [email or web address] , for a description of the calculator. Electronically Signed: Heath Fong, at 15:04 EST Tel , Service support ,
[2019-10-06 13:25] VITALS: BP 144/80; PULSE 70; RESP 16; O2SAT 97; BMI 25.8
--- NOTE | 2019-10-06 17:54 | CCTA_ITS ---
Calcium Scoring Date of Study:: 10/06/19 Coronary Calcium Scoring: High-resolution Computed Tomographic imaging of the chest was performed on [10/06/2019], with particular attention paid to the coronary arteries. Images from the examination were analyzed for the presence and extent of coronary artery calcification , using coronary calcium quantification software. The patient tolerated the procedure well and there were no complications. The results of the coronary calcification analysis are provided below. - Findings Left Main (LM): 0 Left Anterior Descending (LAD): 62 Left Circumflex (LCX): 20 Right Coronary Artery (RCA): 69 Total Agatston Score: 151 Percentile Rankinth-50th Calcium Scoring Interpretation: 0 No identifiable atherosclerotic plaque. Very low cardiovascular disease risk. <5% chance of presence coronary artery disease A Negative Examination 1-10 Minimal Plaque burden. Significant coronary artery disease very unlikely. 11-100 Mild plaque burden. Likely mild or minimal coronary atherosclerosis. 101-400 Moderate plaque burden Moderate non-obstructive coronary artery disease highly likely. Over 400 Extensive plaque burden. High likelihood of at least one significant coronary stenosis (>50% diameter) Calcium Score: 101 - 400 Moderate non-obstructive coronary artery disease highly like Conclusion: The above is suggestive of mild to moderate atherosclerotic plaquing. No high- grade obstructive disease is suggested. A full evaluation of cardiac risk should include an assessment of all conventional risk factors, and the scores and percentile rankings reported herein should be evaluated in this context.
== END ==
PROVIDERS: PCP Family Medicine; Referring Provider Internal Medicine Cardiovascular Disease; Visit Provider Internal Medicine Cardiovascular Disease
DX: Z82.49 Family history of ischemic heart disease and other diseases of the circulatory system (principal)
CPT/HCPCS: 75571; 76380

== ENCOUNTER → 2020-08-05 09:44 | Outpatient (CLI) | payer MEDICARE, OTHER, SELFPAY ==
[2019-10-06 13:25] VITALS: BMI 25.8
--- NOTE | 2020-08-05 09:49 | RAD_ITS ---
STUDY: X-RAY - LUMBAR SPINE REASON FOR EXAM: Male, 69 years old. Lumbar radiculopathy most prominent on the right. TECHNIQUE: 4 view(s) of the lumbar spine were obtained on 5 images. COMPARISON: None FINDINGS: Generalized osteopenia. Normal lumbar lordosis. Mild dextroscoliosis. There is a normal alignment of the vertebrae. Diffuse moderate facet sclerosis. Intervertebral disc space narrowing at L1-2, L2-3, L3-4 and L4-5 with osteophyte formation. Multiple vascular coils projecting over the pelvis. RAD/L/S Spine Min 4 Views IMPRESSION: Osteopenia with diffuse moderate lumbar spondylosis. Electronically Signed: Kenton Sheikh MD at 12:02 EST , Service support ,
--- NOTE | 2020-08-05 09:49 | RAD_ITS ---
STUDY: X-RAY - PELVIS AND BILATERAL HIPS REASON FOR EXAM: Male, 69 years old. Joint pain, right greater than left. TECHNIQUE: AP view of the pelvis.? 2 views of the right hip, and 2 views of the left hip were obtained. COMPARISON: None. FINDINGS: There is a non-specific bowel gas pattern. Multiple vascular coils projected over the pelvis. Phleboliths. Normal bilateral iliac wings, sacroiliac joints and visualized sacrum. Normal bilateral superior and inferior pubic rami. Normal pubic symphysis. Normal bilateral ischial tuberosities. Normal visualized right femoral head. Normal right acetabulum. Normal right hip joint. Normal visualized left femoral head. Normal left acetabulum. Normal left hip joint. RAD/Hips B/L min 2 views w/ Pelvis IMPRESSION: No abnormality of the pelvis or hips. Electronically Signed: Kenton Sheikh MD at 12:01 EST , Service support ,
[2020-08-05 12:59] LABS: Absolute Lymphocyte Count 1.24 X10^3/uL (0.83-4.51); Absolute Neutrophil Count 5.9 X10^3/uL (2.0-7.7); Basophil# 0.01 X10^3/uL; Basophil% 0.1 % (0-1); Eosinophil# 0.12 X10^3/uL; Eosinophils% 1.5 % (0-5); Hematocrit 43.5 % (40-54); Hemoglobin 14.3 g/dL (13.0-16.5); Lymphocyte # 1.24 X10^3/ul (4.0); Lymphocyte % 15.7 % (19-41); Mean Corp Hgb Conc 32.9 g/dL (32-36); Mean Corpuscular Hgb 29.8 pg (27.0-32.0); Mean Corpuscular Volume 90.6 fL (80-94); Mean Platelet Vol. 9.9 fl (6.2-12.0); Monocyte% 7.6 % (0-10); NRBC Flagged by Analyzer 0 % (0-5); Neutrophil # 5.89 X10^3/uL (2.7-7.7); Neutrophil % 74.8 % (47-70); Platelet Count 308 K/mm3 (150-450); RBC Distribution Width CV 12.7 % (11.6-14.6); RBC Distribution Width SD 42.3 fl (35.1-43.9); White Blood Count 7.9 K/mm3 (4.4-11.0)
[2020-08-05 13:23] LABS: AST(SGOT) 15 U/L (15-37); Alanine Aminotransfer ALT/SGPT 28 U/L (16-61); Albumin, Serum 3.8 g/dL (3.2-5.0); Alkaline Phosphatase 91 U/L (45-117); Anion Gap 5 (5-15); BUN 18 mg/dL (7-18); BUN/Creat Ratio 22.4 RATIO (10-20); Calcium,Total 8.8 mg/dL (8.5-10.1); Chloride 104 mmol/L (98-107); Cholesterol 152 mg/dL (200); EST Glomerular Filtration Rate 101 mL/min (>60); Est Glom Filt Rate - Afr Amer 122 mL/min (>60); Globulin 3.8 g/dL (2.2-4.2); Glucose 80 mg/dL (74-106); High Density Lipoprotein 40 mg/dL; Potassium 4.2 mmol/L (3.5-5.1); Protein, Total 7.6 g/dL (6.4-8.2); Sodium Level 136 mmol/L (136-145); Triglycerides 150 mg/dL; Very Low Density Lipoprotein 30 mg/dL (5-40)
== END ==
PROVIDERS: PCP Family Medicine; Referring Provider Family Medicine; Visit Provider Family Medicine
DX: M25.551 Pain in right hip (principal); M54.16 Radiculopathy, lumbar region; M19.90 Unspecified osteoarthritis, unspecified site; Z13.220 Encounter for screening for lipoid disorders; Z79.899 Other long term (current) drug therapy
CPT/HCPCS: 72110; 73521; 80053; 80061; 85025

== ENCOUNTER 2020-10-08 08:00 | Outpatient (RCR) | payer MEDICARE, OTHER, SELFPAY ==
[2019-10-06 13:25] VITALS: BMI 25.8
--- NOTE | 2020-08-14 09:03 | HP.PTEVAL_ITS ---
Patient's Visit Information RANDY MONTEMAYOR is a 70 year old M referred to Physical Therapy by Dr. Ki Hunter MD with a diagnosis of R GLUT/HIP PAIN. R SIDED POSTURAL LIST.. Date of Evaluation: 08/14/20 Physical Therapist: Ghada Covarrubias, PT, Cert MDT - Visit Plan Frequency: 2-3x /Week Duration: 4-6 Weeks Plan: POSTURE CORRECTION/STRENGTHENING, INSTRUCTION IN APPROPRIATE BODY MECHANICS AND ACTIVITY MODIFICATIONS. DLS STARTING WITH A NEUTRAL SPINE PROGRESSING ROM TOLERATED. LYLA LE ROM, STRETCHING AND STRENGTHENING. HEP INSTRUCTION. 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 TRIES TO STAY AT ABOUT 20 HOURS A WK BUT UP TO 50 OR MORE SOMETIMES. Disability: NO. Present symptoms: RIGHT HIP AND BUTTOCK PAIN. INTERMITTENT RIGHT LE NUMBNESS. SOMETIMES THE WHOLE LEG GOES NUMB AND GETS ACHY TO THE FOOT. NO LLE SX'S. MILD INTERMITTENT LBP. HANDS GO NUMB (ONE THE OTHER OR BOTH) ALMOST EVERY NIGHT. NECK PAIN. Present since: ABOUT YEAR. Pain Scale: WORST 7/10, LEAST 0/10. Currently: 0/10. Commenced as a result of: NO APPARENT REASON. Symptoms at onset: R LE NUMBNESS. Worse: SITTING, STANDING SLIGHTLY BENT FORWARD (MAKING APPLESAUCE), TRAVELING IN CERTAIN CARS. Better: ON THE MOVE. Disturbed sleep: SOMETIMES IT IS HARD TO GET TO SLEEP BECAUSE R LE ACHES. TYLONOL DOESN'T HELP THE PAIN BUT SEEMS TO RELAX HIM ENOUGH TO GO TO SLEEP. Previous history/Previous treatment: PHYSICAL THERAPY ABOUT 5 YEARS AGO FOR NECK AND LOW BACK. NO NECK OR BACK SURGERY. NO MORIS'S. NO CHIROPRACTOR. Treatment this episode: PT ORDER. Coughing/sneezing/straining: NEGATIVE. Gait: PATIENT REPROTS HE FEELS LIKE HE IS WALKING NORMALLY BUT SOMETIMES HE STUMBLES GOING UP STEPS. Difficulty initiating urinatin: NO. Accidents: NO. Unexplained weight loss: NO. Imaging: RECENT LUMBAR X-RAYS - FINDINGS: Generalized osteopenia. Normal lumbar lordosis. Mild dextroscoliosis. There is a normal alignment of the vertebrae. Diffuse moderate facet sclerosis. Intervertebral disc space narrowing at. L1-2, L2-3, L3-4 and L4-5 with osteophyte formation. Multiple vascular coils projecting over the pelvis. . RAD/L/S Spine Min 4 Views. IMPRESSION: Osteopenia with diffuse moderate lumbar spondylosis. PMH: OSTEOPENIA. - Objective Sitting/Standing Posture: POOR. RIGHT ILIAC CREST SLIGHTLY HIGHER THAN LEFT. Lordosis: REDUCED. Lateral shift: NO. Relevant shift: N/A. Active Correction of posture: BETTER AND PASSIVE LUMBAR SUPPORT ALSO DECREASES RIGHT LE SX'S. Other Observations: INDEP GAIT AND TRANSFERS. Motor deficit: LYLA LE STRENGTH GROSSLY 5/5 WITH MMT'ING EXCEPT RIGHT HIP 4-/5 AND LEFT HIP 4/5. Sensory deficit: LYLA LE LIGHT TOUCH SENSATION INTACT AND SYMMETRICAL. ROM deficit: TIGHT LYLA LE HS'S, HIP FLEXORS, GASTROC-SOLEUS COMPLEX'S AND RIGHT HIP INTERNAL ROTATORS. Reflexes: LYLA QUADS 1/2 AND LYLA ACHILLES ABSENT. Dural Signs: POSITIVE RIGHT LE. Lumbar mvmt loss: flex - MOD. ext - SARAY. R SG - SARAY. L SG - SARAY. Core strength: POOR. Palpation: NO ACUTE LUMBAR, SACRAL, BUTTOCK OR HIP TENDERNESS. TREATMENT: NEUROMUSCULAR REEDUCATION - RETRAINING OF MVMT AND POSTURE FOR SITTING, LYING AND STANDING ACTIVITIES. - Goals Goal 1:: DECREASE C/O LOW BACK AND RIGHT LE SX'S. Goal Time Frame: 4-6 Weeks Goal 2:: IMPROVE STANDING, SITTING, ADL AND SLEEP FUNCTION. Goal Time Frame: 4-6 Weeks Goal 3:: INSTRUCT IN PROPHYLAXIS Goal Time Frame: 4-6 Weeks - Anticipated Interventions Patient/Client Instruction: Educate patient on: Condition, Plan of Care, Risk Factors, Benefits of Fitness Program For the Purpose of:: To improve self management Therapeutic Exercise to Include: Strength training, Body mechanics, Postural training, Flexibilty training, Neuromotor development, Dynamic Lumbar Stabilization For the Purpose of:: To decrease pain, To increase ROM, To improve muscle performance and motor function, To increase tolerance to activity/condition/position, To improve ability of physical actions for home/community/work/leisure Cryotherapy (ice pack, ice massage): Yes Thermo therapy (hot pack): Yes Ultrasound (thermal/non thermal): Yes For the Purpose of:: To decrease pain, To improve nutrient delivery to tissue Thank you for the opportunity to evaluate your patient. For Medicare and Medicare HMO plans, please review the plan of care and approve it. It will need to be FAXED BACK to us at [phone] for Medicare purposes. For Medicare only, by signing this I certify the plan of care. Please let me know if there are questions or concerns regarding this plan of care. Physician Signature: Date:
--- NOTE | 2020-09-10 09:36 | HP.PTREVAL ---
Dr. Ki Hunter MD, It has been my pleasure to treat RANDY MONTEMAYOR over the last 10 visits for R GLUT/HIP PAIN. R SIDED POSTURAL LIST.. Please see the progress note below for an update on the physical therapy plan of care! Subjective: PATIENT REPORTS HE IS 80 TO 90% BETTER. STATES HIS HIP USE TO BE REALLY PAINFUL IN THE MORNINGS BUT HASN'T BEEN BOTHERING HIM HARDLY AT ALL SINCE THERAPY. DOES STILL GET ACHING DOWN THE RLE AT TIMES AND NOTICED IT AGAIN WHILE LOOKING AT THINGS AT [facility] LAST WEEK. PATIENT REPORTS HIS BACK HAS HURT FOR 20 YEARS BUT DIDN'T BOTHER HIM ALL DAY AFTER ONE OF THE TREATMENTS LAST WEEK AND WOULD REALLY LIKE TO TRY THE E-STIM AGAIN AT LEAST TODAY. PATIENT REPORTS COMPLIANCE WITH HEP AND REPORTS THE EX'S DO NOT TIRE HIS BACK OUT MUCH NOW THEY DID BEFORE. Objective/Function: PATIENT IS MAKING GOOD PROGRESS TOWARD ALL PT GOALS AND IS A GOOD CANDIDATE TO CONTINUE PT BASED ON PROGRESS MADE AND ROOM FOR FURTHER IMPROVEMENT. PATIENT IS AGREEABLE. PATIENT DEMO'S INDEPENDENCE WITH CURRRENT HEP AND TOLERATED ALL INTERVENTIONS WELL TODAY. UPON EXAM TODAY: PATIENT NOW HAS A NEGATIVE RIGHT LE DURAL TEST BUT STILL DOES GET SX'S ALL THE WAY DOWN HIS LEG INTERMITTENTLY WITH ADL'S. Lumbar mvmt loss: flex - MOD. ext - MOD TO SARAY. R SG - SARAY. L SG - SARAY. Core strength: FAIR Plan Plan: CONTINUE PT 1-2 TIMES A WEEK X 4 WEEKS. MODALITIES NEEDED. POSTURE CORRECTION/STRENGTHENING, INSTRUCTION IN APPROPRIATE BODY MECHANICS AND ACTIVITY MODIFICATIONS. DLS STARTING WITH A NEUTRAL SPINE PROGRESSING ROM TOLERATED. LYLA LE ROM, STRETCHING AND STRENGTHENING. HEP INSTRUCTION. Goals Goal 1:: DECREASE C/O LOW BACK AND RIGHT LE SX'S. Goal Time Frame: 4-6 Weeks Goal Progress: Progressing Goal 2:: IMPROVE STANDING, SITTING, ADL AND SLEEP FUNCTION. Goal Time Frame: 4-6 Weeks Goal Progress: Progressing Goal 3:: INSTRUCT IN PROPHYLAXIS Goal Time Frame: 4-6 Weeks Goal Progress: Progressing Anticipated Interventions Patient/Client Instruction: Educate patient on: Condition, Plan of Care, Risk Factors, Benefits of Fitness Program For the Purpose of:: To improve self management Therapeutic Exercise to Include: Strength training, Body mechanics, Postural training, Flexibilty training, Neuromotor development, Dynamic Lumbar Stabilization For the Purpose of:: To decrease pain, To increase ROM, To improve muscle performance and motor function, To increase tolerance to activity/condition/position, To improve ability of physical actions for home/community/work/leisure Cryotherapy (ice pack, ice massage): Yes Thermo therapy (hot pack): Yes Ultrasound (thermal/non thermal): Yes For the Purpose of:: To decrease pain, To improve nutrient delivery to tissue Please do not hesitate to contact me at [phone] by phone or if you have questions or concerns regarding this new plan of care! Sincerely, Ghada Covarrubias, PT, Cert MDT
--- NOTE | 2020-10-08 08:52 | HP.PTDCSUM ---
It has been my pleasure to treat RANDY MONTEMAYOR referred by Dr. Ki Hunter MD, with the diagnosis of R GLUT/HIP PAIN. R SIDED POSTURAL LIST. for a total of 16 visit(s). Discharge Date: Please see the following information for a summary of their discharge status. Subjective: PATIENT REPORTS HIS BACK IS MUCH MUCH BETTER. GETS MINOR HIP PAIN. IT DOESN'T REALLY BOTHER ME AT NIGHT ANYMORE AND MY HANDS DON'T EVEN GO NUMB. SOMEHOW MY NECK IS BETTER TOO. PATIENT REPORTS HE STILL GETS SOME RIGHT HIP PAIN SITTING IN CERTAIN CHAIRS AND WITH PROLONGED STANDING WHILE BENDING OVER TO DO THINGS LIKE PUT LABELS ON HIS HONEY. PATIENT REPORTS HE IS DOING HIS HEP REGULARLY AND PLANS TO KEEP IT UP. PATIENT REPORTS BEING SURPRISED HOW MUCH THE EX'S SEEM TO HELP. LOW BACK Pain Intensity (Out of 10): 1 RIGHT LE Pain Intensity (Out of 10): Unrated % Improvement: 95 Objective/Function: PATIENT WAS SEEN TODAY FOR RE-ASSESSMENT OF PROGRESS TOWARD THE SET PT GOALS AND THE NEED FOR FURTHER PHYSICAL THERAPY VS READINESS FOR DISCHARGE. ALL GOALS HAVE BEEN MET. OVER-ALL PATIENT HAS RESPONDED REALLY WELL TO THERAPY AND IS INDEP WITH A HEP NOW. CORE STRENGTH, HIP STRENGTH AND HIP ROM HAVE ALL IMPROVED. PATIENT IS APPROPRIATE FOR DISCHARGE AT THIS TIME. UPON EXAM TODAY: Motor deficit: LYLA LE STRENGTH GROSSLY 5/5 WITH MMT'ING EXCEPT RIGHT HIP 4/5. Sensory deficit: LYLA LE LIGHT TOUCH SENSATION INTACT AND SYMMETRICAL. ROM deficit: TIGHT LYLA LE HS'S, HIP FLEXORS, GASTROC-SOLEUS COMPLEX'S BUT IMPROVING AND LYLA IR ROTATION ROM IS NOW SYMMETRICAL. THERE IS IMPROVEMENT IN RIGHT HIP IR SINCE EVAL. Dural Signs: NEGATIVE LYLA LE'S. Lumbar mvmt loss: flex - MOD. ext - MOD TO SARAY. R SG - SARAY. L SG - SARAY. Core Strength: Fair. Goal 1:: DECREASE C/O LOW BACK AND RIGHT LE SX'S. Goal Progress: Goal Met Goal 2:: IMPROVE STANDING, SITTING, ADL AND SLEEP FUNCTION. Goal Progress: Goal Met Goal 3:: INSTRUCT IN PROPHYLAXIS Goal Progress: Goal Met Plan: D/C TO INDEP EX. PATIENT IS AGREEABLE. If there are questions or concerns regarding this patient's physical therapy, please feel free to call me at [phone]. Thank you for the referral of this patient. Sincerely, Ghada Covarrubias, PT, Cert MDT
== END 2020-10-08 14:47 | disposition home or self-care (01) ==
LOC: PT 08:00
PROVIDERS: PCP Family Medicine; Referring Provider Family Medicine; Visit Provider Family Medicine
DX: M25.551 Pain in right hip (principal); M79.18 Myalgia, other site
CPT/HCPCS: 97014; 97035; 97110; 97112; 97162; 97164; 97530; G0283

== ENCOUNTER → 2020-10-18 07:55 | Outpatient (CLI) | payer MEDICARE, OTHER, SELFPAY ==
[2020-10-01 10:19] VITALS: BMI 26.9
--- NOTE | 2020-10-18 07:57 | ECHOD_ITS ---
Reason For Study: HTN Procedure This was a 2D Doppler, Color Flow transthoracic echocardiogram. Exam performed in department. Left Ventricle Normal LV size. Left ventricular systolic function is normal. The estimated ejection fraction is 65 %. Stage 1 diastolic dysfunction. No regional wall motion abnormalities noted. Right Ventricle Normal RV size. Normal systolic function. Atria Normal left atrium. Normal right atrium. Mitral Valve Normal mitral valve. Tricuspid Valve Normal tricuspid valve. Aortic Valve Normal aortic valve. Trisinus/trileaflet aortic valve. Mild (1+) aortic valve insufficiency. Pulmonic Valve Normal pulmonic valve. Great Vessels Normal aortic root. The pulmonary artery is normal size. Normal inferior vena cava. Pericardium/Pleural No pericardial effusion. MMode/2D Measurements & Calculations LVIDd: 4.3 cm IVSd: 1.1 cm Ao root diam: 3.9 cm LVIDs: 2.8 cm LVPWd: 0.98 cm LA dimension: 3.1 cm RVDd: 3.0 cm FS: 34.8 % LAV(MOD-bp): 44.8 ml LA A4 area: 18.7 cm2 RA A4 area: 17.9 cm2 LAV(MOD-bp) Indexed: 22.6 ml/m2 LAV(MOD-sp2): 40.9 ml LAV(MOD-sp4): 49.0 ml Time Measurements MV dec time: 0.33 sec Doppler Measurements & Calculations MV E max capo: 55.3 cm/sec Lat Peak E' Capo: 9.6 cm/sec Med Peak E' Capo: 9.2 cm/sec MV A max capo: 79.6 cm/sec E/E' lat: 5.8 E/E' med: 6.0 MV E/A: 0.70 MV V2 max: 83.6 cm/sec MV P1/2t max capo: 63.1 cm/sec Ao V2 max: 106.5 cm/sec MV max P.8 mmHg MV P1/2t: 107.6 msec Ao max P.5 mmHg MV V2 mean: 43.4 cm/sec MV dec slope: 171.7 cm/sec2 MV mean P.89 mmHg MVA(P1/2t): 2.0 cm2 MV V2 VTI: 21.3 cm AI max capo: 385.7 cm/sec LV V1 max: 93.5 cm/sec PA V2 max: 88.6 cm/sec AI max P.5 mmHg LV V1 max P.5 mmHg AI dec slope: 119.0 cm/sec2 AI P1/2t: 949.1 msec Interpretation Summary Normal LV size. Left ventricular systolic function is normal. The estimated ejection fraction is 65 %. Stage 1 diastolic dysfunction. Mild (1+) aortic valve insufficiency. Ordering Physician: Harvey Ag Referring Physician: Ki Hunter Performed By: Nolberto Herrera RCS
== END ==
PROVIDERS: PCP Family Medicine; Referring Provider Internal Medicine Cardiovascular Disease; Visit Provider Internal Medicine Cardiovascular Disease
DX: R03.0 Elevated blood-pressure reading, without diagnosis of hypertension (principal); R68.89 Other general symptoms and signs
CPT/HCPCS: 93306

== ENCOUNTER 2021-05-27 07:00 | Outpatient (RCR) | payer MEDICARE, OTHER, SELFPAY ==
[2020-10-01 10:19] VITALS: BMI 26.9
--- NOTE | 2021-04-29 08:46 | HP.PTEVAL ---
Patient's Visit Information RANDY MONTEMAYOR is a 70 year old M referred to Physical Therapy by Dr. Ki Hunter MD with a diagnosis of Extensor tendonitis of foot. Date of Evaluation: 04/29/21 Physical Therapist: JOSH Marin - Visit Plan Frequency: 2x /Week Duration: 3 Weeks Plan: 2X/ week for 3 weeks for R great toe extensor US, Great toe stretches into both extension and flexion, great toe strengthening, MT the R great toe and balance exercises with gait training for proper R great toe push off. - Subjective Pt started with pain years ago but it is getting worse but now a little better. He feels it when he picks up his toe or goes to squat etc. He also feels it with bending it down. He is on voltran cream and not sure it is helping. He still feels the pulling. He was diagnosed with tendonitis just las week. About 2-3 years ago he dropped a sledge on his toe and thinks that is when it started. He is not on any other meds for it. His great toe feels ok with walking but when he is in 1/2 kneel he has the increase pain. He has not tried any exercises for this. No issues on stairs. He can sleep ok. - Pain R great toe Pain Intensity (Out of 10): 0 - Objective R DF 6 degrees, 42 degrees PF, great toe extension 40 degrees. L DF - Goals Goal 1:: I HEP Goal Time Frame: 2-4 Weeks Goal 2:: Decrease pain with squating or going into 1/2 lunge position on the R great toe Goal Time Frame: 2-4 Weeks Goal 3:: Decrease R great toe pain with push off with gait to none in barefoot Goal Time Frame: 2-4 Weeks - Rehabilitation Potential Rehabilitation Potential: Good - Anticipated Interventions Patient/Client Instruction: Educate patient on: Condition, Plan of Care For the Purpose of:: To decrease pain, To increase ROM, To improve nutrient delivery to tissue, To increase oxygenation perfusion, To improve muscle performance and motor function, To improve ability to perform ADL's, To increase tolerance to activity/condition/position, To improve performance and independence with ADL's, To decrease level of supervision to perform tasks, To improve ability of physical actions for home/community/work/leisure, To improve gait and locomotor functions, To improve health of tissue, To decrease soft tissue restriction, To increase flexibility/ROM, To improve balance Therapeutic Exercise to Include: Strength training, Balance training, Flexibilty training, Gait and locomotor training, Passive ROM, Active ROM For the Purpose of:: To decrease pain, To decrease swelling/inflammation, To increase ROM, To improve nutrient delivery to tissue, To improve muscle performance and motor function, To improve ability to perform ADL's, To increase tolerance to activity/condition/position, To improve performance and independence with ADL's, To decrease level of supervision to perform tasks, To improve ability of physical actions for home/community/work/leisure, To improve gait and locomotor functions, To improve health of tissue, To decrease soft tissue restriction, To increase flexibility/ROM, To improve balance, To improve safety with gait Manual Therapy Techniques to Include: Massage, Mobilization, Passive ROM, Soft tissue mobilization For the Purpose of:: To decrease pain, To decrease swelling/inflammation, To increase ROM, To improve nutrient delivery to tissue, To improve muscle performance and motor function, To improve ability to perform ADL's, To increase tolerance to activity/condition/position, To improve performance and independence with ADL's, To decrease level of supervision to perform tasks, To improve ability of physical actions for home/community/work/leisure, To improve gait and locomotor functions, To improve health of tissue, To decrease soft tissue restriction, To increase flexibility/ROM, To improve balance, To improve safety with gait Thank you for the opportunity to evaluate your patient. For Medicare and Medicare HMO plans, please review the plan of care and approve it. It will need to be FAXED BACK to us at [phone] for Medicare purposes. For Medicare only, by signing this I certify the plan of care. Please let me know if there are questions or concerns regarding this plan of care. Physician Signature: Date:
--- NOTE | 2021-05-08 09:55 | HP.OTEVAL ---
Patient's Visit Information RANDY MONTEMAYOR is a 70 year old M, referred to Occupational Therapy by Dr. Ki Hunter MD, with a diagnosis of Trigger finger of L MF. Date of Evaluation: 04/15/21 Occupational Therapist: Lyla Salomon, OTR/Lori, CHT - Subjective This 70/M was seen today for OT eval for a trigger finger of his L MF. He was seen in 2017 for his R hand with trigger fingers. 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 He reported that it is worse at night and he doesn't notice it during the day. He denies numbness and tingling, and says that his ADLs and IADLs are going fine. He has issues with washing his back with a wash rag. The pain is worse when he forces a composite fist and hyperextends his fingers. He reported that gripping things is difficult and he has noticed a significant decrease in strength and wishes to get it back. - Pain L Hand 1 Pain Intensity Range: 4, 5 - ROM Wrist: R: 48*/65* L: 45*/55* - Strength Trestle Mainternance Laborer: R: 65# L: 45# Lateral Pinch: R: 24# L: 25# Tripod Pinch: R: 21# L: 17# - Edema PIP: R MF: 8 inches, L MF: 8.5 inches - Quick DASH-Disab of Arm,Shoulder& Hand Quick DASH Score: 13.6350 - Goals Goal:: pt will demonstrate an increase in L health safety specialist strength of at least 20# to return to PLOF for work tasks by d/c. Goal:: pt will self-report night pain 0/10 and less than once a week by d/c. Goal:: pt will demonstrate a decrease in edema of his R MF by 0.5 inch to decrease pain with use by d/c. - Rehabilitation General Assessment: Pt demonstrated a decreased strength, ROM in his L hand and an increase in pain. Pt would benefit from skilled OT services 1-2x a week for 4 weeks to decrease pain and increase ROM and strength. Today, Therapist performed US to decrease swelling, pain, and increase soft tissue mobility. Therapist also fabricated a night splint to reduce the tightening of fists that results in pain, stiffness in the morning. Pt agreed and understood POC. therapy session was directly supervised and doc. approved by Lyla LINO/Lori,FERNANDAT Rehabilitation Potential: Good - Anticipated Interventions A/AAROM/PROM, Strengthening, Edema Control, Triggerpoint Release, Modalities, Orthoses, Joint Protection/Energy Conservation, Home Program - Visit Plan Frequency: 1-2x /Week Duration: 4 Weeks General Plan: modalities. AROM/PROM. strengthening TEXT: Thank you for the opportunity to evaluate your patient. For Medicare and Medicare HMO plans, please review the plan of care and approve it. It will need to be FAXED BACK to us at [phone] for Medicare purposes. Please let me know if there are questions or concerns regarding this plan of care. Physician Signature: Date:
--- NOTE | 2021-05-08 09:55 | HP.OTDCSUM ---
It has been my pleasure to treat RANDY MONTEMAYOR under orders from Dr. Ki Hunter MD, for the diagnosis of Trigger finger of L MF for a total of 8 visit(s). Please see the following information for a summary of their discharge status. 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 Goal:: pt will self-report night pain 0/10 and less than once a week by d/c. Goal:: pt will demonstrate a decrease in edema of his R MF by 0.5 inch to decrease pain with use by d/c. Plan: d/c at this time Discharge Comments: Pt was seen for 8 visits for a L MF trigger finger to decrease triggers, pain, and inflammation. Pt has noticed that there has been no change in the last few appointments and will be discharged at this time. Pt has been advised to go back to the doctor to seek other treatments to alleviate triggers and pain. Pt agrees with and understands d/c. If there are questions or concerns regarding this patient's occupational therapy, please fell free to call me at [phone]. Thank you for the referral of this patient. Sincerely, Lyla Salomon, OTR/L, CHT
--- NOTE | 2021-05-27 08:17 | HP.PTDCSUM ---
It has been my pleasure to treat RANDY MONTEMAYOR referred by Dr. Ki Hunter MD, with the diagnosis of Extensor tendonitis of foot for a total of 7 visit(s). Discharge Date: 05/27/21 Please see the following information for a summary of their discharge status. Subjective: Pt reports that he feels about the same. He feels better after each treatment but then it comes back. He reports a little less tenderness when pushing off or standing with that foot barefoot. R great toe Pain Intensity (Out of 10): 0 % Improvement: 10 Objective/Function: Real deep tissue along the medial side of the great toe extensor pt felt some discomfort. Goal 1:: I HEP Goal Progress: Goal Met Goal 2:: Decrease pain with squating or going into 1/2 lunge position on the R great toe Goal Progress: Progressing Goal 3:: Decrease R great toe pain with push off with gait to none in barefoot Goal Progress: Goal Met Plan: DC PT to HEP Discharge Comments: DC PT If there are questions or concerns regarding this patient's physical therapy, please feel free to call me at [phone]. Thank you for the referral of this patient. Sincerely, Megan Cordero, MPT Balance/Gait/Functional tests - Balance/Special Test Scores Lower Extremity Functional Score: 79
== END 2021-05-27 19:00 | disposition home or self-care (01) ==
LOC: PT 07:00
PROVIDERS: PCP Family Medicine; Referring Provider Family Medicine; Visit Provider Family Medicine
DX: M65.332 Trigger finger, left middle finger (principal); M65.342 Trigger finger, left ring finger
CPT/HCPCS: 97035; 97110; 97140; 97161; 97165; 97760

== ENCOUNTER → 2021-08-15 07:54 | Outpatient (CLI) | payer MEDICARE, OTHER, SELFPAY ==
[2021-08-15 10:10] LABS: Hematocrit 43.7 % (40-54); Hemoglobin 14.7 g/dL (13.0-16.5); Mean Corp Hgb Conc 33.6 g/dL (32-36); Mean Corpuscular Hgb 29.8 pg (27.0-32.0); Mean Corpuscular Volume 88.6 fL (80-94); Mean Platelet Vol. 9.8 fl (6.2-12.0); Platelet Count 258 K/mm3 (150-450); RBC Distribution Width CV 13.1 % (11.6-14.6); RBC Distribution Width SD 42.6 fl (35.1-43.9); Red Blood Count 4.93 M/mm3 (4.6-6.2); White Blood Count 4.9 K/mm3 (4.4-11.0)
[2021-08-15 10:39] LABS: Anion Gap 5 (5-15); BUN 16 mg/dL (7-18); BUN/Creat Ratio 18.2 RATIO (10-20); Calcium,Total 8.9 mg/dL (8.5-10.1); Chloride 104 mmol/L (98-107); Cholesterol 174 mg/dL (200); Creatinine, Serum 0.88 mg/dL (0.70-1.30); EST Glomerular Filtration Rate 91 mL/min (>60); Est Glom Filt Rate - Afr Amer 110 mL/min (>60); Glucose 93 mg/dL (74-106); High Density Lipoprotein 42 mg/dL; Potassium 4.3 mmol/L (3.5-5.1); Sodium Level 139 mmol/L (136-145); Triglycerides 96 mg/dL; Very Low Density Lipoprotein 19 mg/dL (5-40)
== END ==
PROVIDERS: Nurse Practitioner Family; PCP Family Medicine; Referring Provider Family Medicine; Visit Provider Family Medicine
DX: M19.90 Unspecified osteoarthritis, unspecified site (principal); I73.00 Raynaud's syndrome without gangrene; I10 Essential (primary) hypertension; Z13.220 Encounter for screening for lipoid disorders; Z82.49 Family history of ischemic heart disease and other diseases of the circulatory system
CPT/HCPCS: 36415; 80048; 80061; 85027

== ENCOUNTER 2021-10-08 06:28 | Outpatient (CLI) | payer MEDICARE, OTHER, SELFPAY ==
--- NOTE | 2021-10-08 12:48 | NEURO_ITS ---
NCS and/or EMG Patient Report Ordering Doctor: Louie Murray DATE OF SERVICE: 10/08/21 Kenny presents for electrodiagnostic testing of the lower limbs. Reports sensitivity in both feet, worse on the right side. He reports occasional weakness in the right foot. Electrodiagnostic findings: Right peroneal motor nerve demonstrates prolonged latency with reduced amplitude and reduced conduction velocity. Left peroneal motor responses within normal limits. Normal tibial motor response bilaterally. Borderline prolonged sural latency bilaterally normal superficial peroneal and plantar responses. H reflex prolonged bilaterally. Prolonged right peroneal F- wave. Borderline prolonged tibial F wave bilaterally. On needle EMG, all muscles tested in the lower limbs showed no evidence of denervation with normal motor unit action potentials. Electrodiagnostic impression: This is an abnormal study. 1. 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 No evidence of conduction block at the fibular head. 2. Electrodiagnostic findings demonstrate early signs of polyneuropathy, with motor and sensory involvement. 3. No electrodiagnostic evidence for lumbar radiculopathy
== END 2021-10-08 23:59 | disposition short-term general hospital (02) ==
LOC: PSN 06:32
PROVIDERS: PCP Family Medicine; Referring Provider Podiatrist; Visit Provider Podiatrist
DX: G60.8 Other hereditary and idiopathic neuropathies (principal)
CPT/HCPCS: 95886; 95912

== ENCOUNTER 2021-11-26 06:39 | Outpatient (CLI) | payer MEDICARE, OTHER, SELFPAY ==
--- NOTE | 2021-11-26 06:39 | MRI_ITS ---
STUDY: MRI LUMBAR SPINE WITHOUT CONTRAST REASON FOR EXAM: Male, 71 years old. LBP, N/T DOWN RIGHT LEG TECHNIQUE: Standardized fat and water weighted pulse sequences were obtained in the sagittal and axial planes. COMPARISON: X-ray of the lumbar spine dated November 17, 2021 FINDINGS: No fracture or marrow edema or compression deformity. Normal lumbar lordosis. Moderate dextroscoliosis is present.. Normal conus medullaris that terminates at the T12-L1 level. L1-2: Mild to moderate asymmetric disc space narrowing with a minimal disc spur complex. Slight retrolisthesis of L1 on L2 of less than 2 mm. Normal bilateral facet joints. Normal central canal and bilateral lateral recesses. Normal bilateral intervertebral neural foramina. L2-3: Moderate asymmetric disc space narrowing and endplate degenerative signal with a diffuse disc or complex. Slight retrolisthesis of L2 on L3 of 2 mm. Mild facet joint hypertrophy. Normal bilateral lateral recesses. Mild left foraminal stenosis without nerve root compression. Normal right neural foramen. L3-4: Retrolisthesis of L3 on L4 of 2 mm. Mild to moderate asymmetric disc space narrowing combined with mild to moderate facet joint hypertrophy contributes to mild central canal stenosis and bilateral recess stenosis. Normal bilateral intervertebral neural foramina. L4-5: Normal endplates. Moderate disc space narrowing with a minimal disc spur complex. Mild to moderate facet joint hypertrophy contributes to mild central canal stenosis. Normal bilateral lateral recesses. Normal bilateral intervertebral neural foramina. Mild right foraminal stenosis. Normal left neural foramen. Mild disc space narrowing with minimal annular bulging disc height, hydration and morphology. Normal bilateral facet joints. Normal central canal and bilateral lateral recesses. Mild right foraminal stenosis. Normal left neural foramen. Normal visualized sacral ala. Normal visualized paraspinous soft tissue structures. MRI/Spine Lumbar (Routine) IMPRESSION: 1. Multilevel degenerative changes, as described above. 2. Mild central canal stenosis at L3-L4 and L4-L5. Electronically Signed: Zheng Ruano MD at 11:48 EDT ,
== END 2021-11-26 23:59 | disposition home or self-care (01) ==
LOC: MRI 06:39
PROVIDERS: PCP Family Medicine; Referring Provider Orthopaedic Surgery; Visit Provider Orthopaedic Surgery
DX: M54.17 Radiculopathy, lumbosacral region (principal)
CPT/HCPCS: 72148

== ENCOUNTER → 2022-01-22 | Outpatient (CLI) | payer MEDICARE, OTHER, SELFPAY ==
--- NOTE | 2022-01-22 08:48 | ART_ITS ---
Reason For Study: PVD Procedure A bilateral lower extremity continuous wave Doppler with analog waveform analysis,segmental pressures,and ankle brachial indexes without exercise. Left Segmental Pressures Left brachial= 138mmHg. Left posterior tibial artery = 163mmHg. Left dorsalis pedis artery = 158mmHg. Left digit = 102 mmHg. The left dorsalis pedis waveforms are triphasic. The left posterior tibial artery waveforms are triphasic. Right Segmental Pressures Right brachial= 131mmHg. Right posterior tibial artery = 162mmHg. Right dorsalis pedis artery = 168mmHg. Right digit = 111 mmHg. The right dorsalis pedis waveforms are triphasic. The right posterior tibial artery waveforms are triphasic. Indices The right ankle brachial index by the dorsalis pedis is 1.22. The right ankle brachial index by the posterior tibial artery is 1.17. The right digital-brachial index is .8. The left ankle brachial index by the posterior tibial artery is 1.18. The left ankle brachial index by the dorsalis pedis is 1.14. The left digital-brachial index is .74. VL/Lower Ext Art Exam w/o Exercis Interpretation Summary Normal right lower extremity PT and DP ankle-brachial index of 1.17 and 1.22 re spectively with triphasic Doppler waveforms. Normal right digital brachial index of 0.8 Normal left lower extremity PT and DP ankle-brachial indices of 1.18 and 1.14 r espectively. Normal triphasic Doppler waveforms. Borderline abnormal left digital brachial index of 0.74 possibly consistent wit h temperature effect or small vessel disease Ordering Physician: Louie Murray Performed By: Jeramy Oshea, RVT
== END | disposition home or self-care (01) ==
LOC: CVS 08:46
PROVIDERS: PCP Family Medicine; Visit Provider Podiatrist
DX: I73.9 Peripheral vascular disease, unspecified (principal)
CPT/HCPCS: 93923

== ENCOUNTER → 2022-08-24 | Outpatient (CLI) | payer MEDICARE, OTHER, SELFPAY ==
[2022-08-24 08:05] LABS: Absolute Lymphocyte Count 1.49 X10^3/uL (0.83-4.51); Absolute Neutrophil Count 2.4 X10^3/uL (2.0-7.7); Basophil# 0.03 X10^3/uL; Basophil% 0.7 % (0-1); Eosinophil# 0.17 X10^3/uL; Eosinophils% 3.7 % (0-5); Hematocrit 42.1 % (40-54); Hemoglobin 14.4 g/dL (13.0-16.5); Lymphocyte # 1.49 X10^3/ul (0.83-4.51); Lymphocyte % 32.5 % (19-41); Mean Corp Hgb Conc 34.2 g/dL (32-36); Mean Corpuscular Hgb 30.8 pg (27.0-32.0); Mean Corpuscular Volume 90.1 fL (80-94); Mean Platelet Vol. 9.6 fl (6.2-12.0); Monocyte# 0.51 X10^3/uL; Monocyte% 11.1 % (0-10); NRBC Flagged by Analyzer 0 % (0-5); Neutrophil # 2.38 X10^3/uL (2.7-7.7); Neutrophil % 51.8 % (47-70); Platelet Count 265 K/mm3 (150-450); RBC Distribution Width SD 42.8 fl (35.1-43.9); Red Blood Count 4.67 M/mm3 (4.6-6.2); White Blood Count 4.6 K/mm3 (4.4-11.0)
[2022-08-24 08:48] LABS: ALB/GLOB Ratio 1.1 RATIO (0.9-2.4); AST(SGOT) 17 U/L (15-37); Alanine Aminotransfer ALT/SGPT 23 U/L (16-61); Albumin, Serum 3.8 g/dL (3.2-5.0); Alkaline Phosphatase 79 U/L (45-117); Anion Gap 4 (5-15); BUN 14 mg/dL (7-18); BUN/Creat Ratio 16.1 RATIO (10-20); Chloride 105 mmol/L (98-107); Cholesterol 165 mg/dL (200); Creatinine, Serum 0.87 mg/dL (0.70-1.30); EST Glomerular Filtration Rate 92 mL/min (>60); Est Glom Filt Rate - Afr Amer 111 mL/min (>60); Globulin 3.5 g/dL (2.2-4.2); Glucose 100 mg/dL (74-106); High Density Lipoprotein 41 mg/dL; PSA,Total - Annual Screen 0.32 ng/mL (0.00-4.00); Potassium 4.1 mmol/L (3.5-5.1); Protein, Total 7.3 g/dL (6.4-8.2); Sodium Level 139 mmol/L (136-145); Triglycerides 128 mg/dL; Very Low Density Lipoprotein 26 mg/dL (5-40)
== END | disposition home or self-care (01) ==
LOC: LAB 06:28
PROVIDERS: PCP Family Medicine; Referring Provider Family Medicine; Visit Provider Family Medicine
DX: I65.23 Occlusion and stenosis of bilateral carotid arteries (principal); Z12.5 Encounter for screening for malignant neoplasm of prostate
CPT/HCPCS: 36415; 80053; 80061; 84153; 85025; G0103

== ENCOUNTER 2023-04-02 13:19 | Outpatient (RCR) | payer MEDICARE, OTHER, SELFPAY ==
--- NOTE | 2023-04-02 16:27 | HP.PTEVAL ---
Patient's Visit Information Visit Information Visit Information: RANDY MONTEMAYOR is a 72 year old M referred to Physical Therapy by Dr. Refugio Torres MD with a diagnosis of BACK PAIN. Date of Evaluation: 04/02/23 Physical Therapist: Hemanth Nelson, PT, Cert MDT, OCS Visit Plan Frequency: 1-2x /Week Duration: 4 Weeks Plan: PT INTERVETIONS DLS ,POSTURAL EX'S ,LUMBAR FLEXION,LE FLEXABLITY AND STRENGTHENING Subjective Subjective: This 72 y/o male presents to physical therapy with back pain. Patient has had back pain for ~ 2 years. Patient also has had pain many years. Patient initially seen Dr Johnson and did x-rays DDD and not a surgical candidate. Recommended pain management. Dr Thompson . Patient had epidural injection which has helped pain. So ,pain is better overall. Pain located right lateral hip/glut to ankle when pain is at the worst. Aggravating factors standing ,walking affects housework tasks , Alleviating factors rest and sitting. Bowel/bladder - . Coughing/sneezing -. C/O paresthesia in right foot. Patient is able to sleep. No abnormal night pain. Patient goals to have no pain. Patient pain affects QOL and function. SOCAIL: VOCATION: retired Pain Right Hip: Pain Intensity (Out of 10): 2 Pain Intensity Range: N/A Objective Objective: POSTURE: mild forward posture GAIT: reciprocal pattern NEURO: denies paresthesia/tingling ,reflexes L3-4,L4-5,L5-S1 PALPTION: unremarkable MMT: quads/hams 4/5 ,hip flexion/abduction 4-/5 ,ankle 5/5 LUMBAR ROM: flexion min loss ,extension mod loss side glides min loss FLEXABLITY: hamstrings mod tight Special Tests L/S Slump test left side: Negative L/S Slump test right side: Negative L/S Left Straight Leg Raise: Negative L/S Right Straight Leg Raise: Negative Lumbar Standing: Flexion - Mechanical Response: No effect Lumbar Standing: Flexion - Symptoms During Testing: No effect Lumbar Standing: Flexion - Symptoms After Testing: No effect Lumbar Standing: Extension - Mechanical Response: No effect Lumbar Standing: Extension - Symptoms During Testing: Increases Lumbar Standing: Extension - Symptoms After Testing: No worse Lumbar Standing: Right Side Glides - Mechanical Response: No effect Lumbar Standing: Right Side [place] - Symptoms During Testing: No effect Lumbar Standing: Right Side [place] - Symptoms After Testing: No effect Lumbar Standing: Left Side [place] - Mechanical Response: No effect Lumbar Standing: Left Side [place] - Symptoms During Testing: No effect Lumbar Standing: Left Side [place] - Symptoms After Testing: No effect Balance/Special Test Scores Oswestry Low Back Score: 16 Goals Goal 1:: Patient to be I with HEP Goal Time Frame: 4-6 Weeks Goal 2:: Patient to improve lumbar ROM for flexion of recovery to tie shoes Goal Time Frame: 4-6 Weeks Goal 3:: Patient to improve strength hips to good for gait. Goal Time Frame: 4-6 Weeks Goal 4:: Patient to demonstrate 50% improvement with decrease pain and improved function Goal Time Frame: 4-6 Weeks Goal 5:: Patient to improve back oswestry score by 5 Points or > to improve QOL Goal Time Frame: 4-6 Weeks Rehabilitation Potential Physical Therapy Diagnosis: This patient has lumbar pain worse with positioning and motion testing ,mostly increase with standing and extended walking better with sitting and flexion thus benefit from skilled PT Rehabilitation Potential: Good Anticipated Interventions Patient/Client Instruction: Educate patient on: Condition and Plan of Care For the Purpose of:: To decrease pain, To increase ROM, To improve muscle performance and motor function, To improve ability to perform ADL's, To improve ability of physical actions for home/community/work/leisure, To improve health of tissue, To decrease soft tissue restriction, To increase flexibility/ROM and To improve endurance Therapeutic Exercise to Include: Strength training, Balance training, Body mechanics, Postural training, Flexibilty training and Dynamic Lumbar Stabilization For the Purpose of:: To decrease pain, To increase ROM, To improve muscle performance and motor function, To improve ability to perform ADL's, To increase tolerance to activity/condition/position, To improve ability of physical actions for home/community/work/leisure, To improve health of tissue, To decrease soft tissue restriction, To increase flexibility/ROM, To prevent re-injury and To improve tolerance to ADL's TENS: Yes IF ES: Yes Cryotherapy (ice pack, ice massage): Yes Thermo therapy (hot pack): Yes Ultrasound (thermal/non thermal): Yes For the Purpose of:: To decrease pain, To increase ROM, To improve nutrient delivery to tissue, To increase oxygenation perfusion, To improve health of tissue and To decrease soft tissue restriction Text: Thank you for the opportunity to evaluate your patient. For Medicare and Medicare HMO plans, please review the plan of care and approve it. It will need to be FAXED BACK to us at [phone] for Medicare purposes. For Medicare only, by signing this I certify the plan of care. Please let me know if there are questions or concerns regarding this plan of care. Physician Signature: Date:
== END 2023-04-02 19:00 | disposition home or self-care (01) ==
LOC: PT 13:19
PROVIDERS: PCP Family Medicine; Referring Provider Anesthesiology Pain Medicine; Visit Provider Anesthesiology Pain Medicine
DX: M54.9 Dorsalgia, unspecified (principal)
CPT/HCPCS: 97110; 97162

== ENCOUNTER → 2023-04-09 | Outpatient (CLI) | payer MEDICARE, OTHER, SELFPAY ==
[2023-04-09 12:22] LABS: Erythrocyte Sedimentation Rate 7 mm/hr (0-20)
[2023-04-09 12:25] LABS: Absolute Lymphocyte Count 1.01 X10^3/uL (0.83-4.51); Absolute Neutrophil Count 2.5 X10^3/uL (2.0-7.7); Basophil# 0.02 X10^3/uL; Basophil% 0.5 % (0-1); Eosinophil# 0.08 X10^3/uL; Hematocrit 41.7 % (40-54); Hemoglobin 14.1 g/dL (13.0-16.5); Lymphocyte # 1.01 X10^3/ul (0.83-4.51); Lymphocyte % 24.6 % (19-41); Mean Corp Hgb Conc 33.8 g/dL (32-36); Mean Corpuscular Hgb 30.5 pg (27.0-32.0); Mean Corpuscular Volume 90.3 fL (80-94); Mean Platelet Vol. 9.7 fl (6.2-12.0); Monocyte# 0.47 X10^3/uL; Monocyte% 11.5 % (0-10); NRBC Flagged by Analyzer 0 % (0-5); Neutrophil # 2.51 X10^3/uL (2.7-7.7); Neutrophil % 61.2 % (47-70); Platelet Count 239 K/mm3 (150-450); RBC Distribution Width SD 42.7 fl (35.1-43.9); Red Blood Count 4.62 M/mm3 (4.6-6.2); White Blood Count 4.1 K/mm3 (4.4-11.0)
[2023-04-09 13:08] LABS: AST(SGOT) 20 U/L (15-37); Alanine Aminotransfer ALT/SGPT 26 U/L (16-61); Albumin, Serum 3.6 g/dL (3.2-5.0); Alkaline Phosphatase 79 U/L (45-117); Anion Gap 4 (5-15); BUN 17 mg/dL (7-18); BUN/Creat Ratio 19.6 RATIO (10-20); CRP < 2.90 mg/L (0.0-3.0); Calcium,Total 8.9 mg/dL (8.5-10.1); Chloride 106 mmol/L (98-107); Creatinine, Serum 0.87 mg/dL (0.70-1.30); EST Glomerular Filtration Rate 91 mL/min (>60); Est Glom Filt Rate - Afr Amer 110 mL/min (>60); Globulin 3.7 g/dL (2.2-4.2); Glucose 88 mg/dL (74-106); Potassium 4.2 mmol/L (3.5-5.1); Protein, Total 7.3 g/dL (6.4-8.2); Sodium Level 137 mmol/L (136-145)
[2023-04-09 13:10] LABS: Rubella IgG Reactive (Nonreactive); Syphilis Antibodies Non-reactive
[2023-04-10 13:07] LABS: ANTINUCLEAR ANTIBODIES DIRECT Negative (Negative)
[2023-04-12 15:07] LABS: Lyme Scn Total Ab w/Rflx Negative (Negative); PROEL- A/G Ratio 1.2 (0.7-1.7); PROEL- Albumin 3.6 g/dL (2.9-4.4); PROEL- Alpha-1 Globulin 0.2 g/dL (0.0-0.4); PROEL- Alpha-2 Globulin 0.7 g/dL (0.4-1.0); PROEL- Beta Globulin 1.1 g/dL (0.7-1.3); PROEL- Gamma Globulin 0.9 g/dL (0.4-1.8); PROEL- TOTAL PROTEIN 6.6 g/dL (6.0-8.5); Rubeola IgG Ab > 300.0 AU/mL (Immune >16.4); V-Zoster IgG (Immunity) > 4000 index (Immune >165); V-Zoster Virus Acute IgM < 0.91 index (0.00-0.90)
== END | disposition home or self-care (01) ==
PROVIDERS: PCP Family Medicine; Referring Provider Family Medicine; Visit Provider Family Medicine
DX: R21 Rash and other nonspecific skin eruption (principal)
CPT/HCPCS: 36415; 80053; 84165; 85025; 85652; 86038; 86140; 86618; 86762; 86765; 86780; 86787

== ENCOUNTER → 2023-09-15 | Outpatient (CLI) | payer MEDICARE, OTHER, SELFPAY ==
--- NOTE | 2023-09-15 10:44 | US_ITS ---
PROCEDURES: ULTRASOUND AORTA REASON FOR EXAM: Male, 73 years old. AAA TECHNIQUE: Ultrasound evaluation of the aorta was performed with real-time and static cameron-scale imaging. COMPARISON: None. FINDINGS: There is atherosclerotic plaque formation of the abdominal aorta. Aorta measures: Proximal 2.8 cm. Middle 1.9 cm. Distal 1.6 cm. Aorta measure transversely: Proximal 3.0 cm. Middle 2.2 cm. Distal 1.9 cm. Right iliac artery measures: 0.8 cm. Right iliac artery measure transversely: 1.2 cm. Left iliac artery measures: 1.1 cm. Left iliac artery measure transversely: 1.1 cm. There is no demonstrated aneurysm.. US/Aorta IMPRESSION: Atherosclerotic plaque. No aneurysm. Electronically Signed: Sachin Hernandez MD at 19:51 EST ,
== END | disposition home or self-care (01) ==
PROVIDERS: PCP Family Medicine; Referring Provider Family Medicine; Visit Provider Family Medicine
DX: I71.40 Abdominal aortic aneurysm, without rupture, unspecified (principal)
CPT/HCPCS: 76775

== ENCOUNTER → 2024-02-14 | Outpatient (CLI) | payer MEDICARE, OTHER, SELFPAY ==
--- NOTE | 2024-02-14 10:47 | RAD_ITS ---
INDICATION: LEFT MEDIAL KNEE PAIN EXAMINATION/TECHNIQUE: X-RAY - LEFT XR Knee 3 Views 3 VIEWS COMPARISON: FINDINGS: SOFT TISSUES: No soft tissue swelling or gas. No radiopaque foreign body. BONES/JOINTS: No acute fracture or subluxation.. Normal alignment. Mild suprapatellar effusion.. No sclerotic or destructive changes observed. RAD/Knee 3 Views IMPRESSION: No acute bony injury. Mild suprapatellar effusion. Electronically Signed: Jefferson Martinez DO at 17:17 EDT ,
[2024-02-14 12:59] LABS: Absolute Lymphocyte Count 1.21 X10^3/uL (0.83-4.51); Absolute Neutrophil Count 5.7 X10^3/uL (2.0-7.7); Basophil# 0.02 X10^3/uL; Basophil% 0.3 % (0-1); Eosinophil# 0.11 X10^3/uL; Eosinophils% 1.4 % (0-5); Hematocrit 43.5 % (40-54); Hemoglobin 14.3 g/dL (13.0-16.5); Lymphocyte # 1.21 X10^3/ul (0.83-4.51); Lymphocyte % 15.9 % (19-41); Mean Corp Hgb Conc 32.9 g/dL (32-36); Mean Corpuscular Hgb 29.9 pg (27.0-32.0); Mean Corpuscular Volume 90.8 fL (80-94); Mean Platelet Vol. 9.7 fl (6.2-12.0); Monocyte# 0.56 X10^3/uL; Monocyte% 7.3 % (0-10); NRBC Flagged by Analyzer 0 % (0-5); Neutrophil % 74.8 % (47-70); Platelet Count 322 K/mm3 (150-450); RBC Distribution Width CV 13.1 % (11.6-14.6); RBC Distribution Width SD 43.2 fl (35.1-43.9); Red Blood Count 4.79 M/mm3 (4.6-6.2); White Blood Count 7.6 K/mm3 (4.4-11.0)
[2024-02-21 15:15] LABS: AST(SGOT) 19 U/L (15-37); Alanine Aminotransfer ALT/SGPT 25 U/L (16-61); Albumin, Serum 3.8 g/dL (3.2-5.0); Alkaline Phosphatase 89 U/L (45-117); Anion Gap 6 (5-15); BUN 15 mg/dL (7-18); BUN/Creat Ratio 18.4 RATIO (10-20); CRP < 2.90 mg/L (0.0-3.0); Calcium,Total 9.3 mg/dL (8.5-10.1); Chloride 106 mmol/L (98-107); Creatinine, Serum 0.82 mg/dL (0.70-1.30); EST Glomerular Filtration Rate 98 mL/min (>60); Est Glom Filt Rate - Afr Amer 118 mL/min (>60); Globulin 3.7 g/dL (2.2-4.2); Glucose 84 mg/dL (74-106); Potassium 4.3 mmol/L (3.5-5.1); Protein, Total 7.5 g/dL (6.4-8.2); Sodium Level 136 mmol/L (136-145); Uric Acid 3.8 mg/dL (3.5-7.2)
== END | disposition home or self-care (01) ==
LOC: MTLAB 10:45
PROVIDERS: PCP Family Medicine; Referring Provider Family Medicine; Visit Provider Family Medicine
DX: M17.12 Unilateral primary osteoarthritis, left knee (principal); M25.562 Pain in left knee
CPT/HCPCS: 36415; 73562; 80053; 84550; 85025; 86140; 86431

== ENCOUNTER → 2024-04-24 | Outpatient (CLI) | payer MEDICARE, OTHER, SELFPAY ==
--- NOTE | 2024-04-24 10:01 | RAD_ITS ---
INDICATION: Rheumatoid arthritis -- ATTN HIPS EXAMINATION/TECHNIQUE: X-RAY - XR Pelvis 1 or 2 Views COMPARISON: 01/14/2022. FINDINGS: PELVIC BONES: No fracture. The sacroiliac joints are unremarkable. The pubic symphysis is not widened. HIPS: No evidence of a fracture or dislocation. No erosive changes. SOFT TISSUES: Unremarkable. RAD/Pelvis 1 or 2 Views IMPRESSION: Unremarkable view of the pelvis and bilateral hips. Electronically Signed: Dez Kessler DO at 22:33 EDT ,
[2024-04-24 11:57] LABS: Erythrocyte Sedimentation Rate 6 mm/hr (0-20)
[2024-04-24 12:00] LABS: Absolute Lymphocyte Count 1.33 X10^3/uL (0.83-4.51); Absolute Neutrophil Count 3.3 X10^3/uL (2.0-7.7); Basophil# 0.02 X10^3/uL; Basophil% 0.4 % (0-1); Eosinophil# 0.08 X10^3/uL; Eosinophils% 1.5 % (0-5); Hematocrit 43.9 % (40-54); Hemoglobin 14.5 g/dL (13.0-16.5); Lymphocyte # 1.33 X10^3/ul (0.83-4.51); Lymphocyte % 25.6 % (19-41); Mean Corpuscular Hgb 30.1 pg (27.0-32.0); Mean Corpuscular Volume 91.1 fL (80-94); Mean Platelet Vol. 10.1 fl (6.2-12.0); Monocyte# 0.43 X10^3/uL; Monocyte% 8.3 % (0-10); NRBC Flagged by Analyzer 0 % (0-5); Neutrophil # 3.32 X10^3/uL (2.7-7.7); Neutrophil % 63.8 % (47-70); Platelet Count 245 K/mm3 (150-450); RBC Distribution Width CV 13.5 % (11.6-14.6); RBC Distribution Width SD 45.8 fl (35.1-43.9); Red Blood Count 4.82 M/mm3 (4.6-6.2); White Blood Count 5.2 K/mm3 (4.4-11.0)
[2024-04-24 12:37] LABS: Hepatitis B Surface Antibody Non-Reactive; Hepatitis B Surface Antigen Non-Reactive (Nonreactive); Hepatitis C Antibody Non-Reactive (Nonreactive)
[2024-04-24 12:39] LABS: ALB/GLOB Ratio 1.1 RATIO (0.9-2.4); AST(SGOT) 19 U/L (15-37); Alanine Aminotransfer ALT/SGPT 22 U/L (16-61); Alkaline Phosphatase 77 U/L (45-117); Anion Gap 5 (5-15); BUN 17 mg/dL (7-18); BUN/Creat Ratio 20.4 RATIO (10-20); Calcium,Total 9.3 mg/dL (8.5-10.1); Chloride 104 mmol/L (98-107); Creatinine, Serum 0.83 mg/dL (0.70-1.30); EST Glomerular Filtration Rate 95 mL/min (>60); Est Glom Filt Rate - Afr Amer 115 mL/min (>60); Globulin 3.5 g/dL (2.2-4.2); Glucose 82 mg/dL (74-106); Potassium 3.9 mmol/L (3.5-5.1); Protein, Total 7.5 g/dL (6.4-8.2); Sodium Level 137 mmol/L (136-145)
[2024-04-25 12:08] LABS: ANTINUCLEAR ANTIBODIES DIRECT Positive (Negative)
[2024-04-25 15:08] LABS: CCP IgG Antibodies 5 units (0-19)
== END | disposition home or self-care (01) ==
PROVIDERS: PCP Family Medicine; Referring Provider Internal Medicine Rheumatology; Visit Provider Internal Medicine Rheumatology
DX: M06.09 Rheumatoid arthritis without rheumatoid factor, multiple sites (principal); M19.041 Primary osteoarthritis, right hand
CPT/HCPCS: 36415; 72170; 80053; 85025; 85652; 86038; 86200; 86431; 86706; 86803; 87340

== ENCOUNTER → 2024-07-05 | Outpatient (CLI) | payer MEDICARE, OTHER, SELFPAY ==
--- NOTE | 2024-07-05 09:30 | RAD_ITS ---
EXAM: XR LUMBOSACRAL SPINE, 2 OR 3 VIEWS CLINICAL INDICATION: DDD TECHNIQUE: Frontal and lateral views of the lumbar spine and sacrum. COMPARISON: MRI November 26, 2021 FINDINGS: VERTEBRAE: There is straightening of the usual lordotic curvature of the cervical spine at L2-L5, mild maintained lordosis at the lumbosacral junction. Question of mild increased dextroscoliosis centered at L2-3 but there was dextroscoliosis at this level on MRI in 2021. No visible endplate destruction. DISC SPACES: Moderate-marked disc space narrowing at L2-3, moderate disc space narrowing at L4-5, mild narrowing at L5-S1. Hypertrophic changes of the facet joints. Multilevel mild endplate sclerosis. SOFT TISSUES: Extensive postoperative changes over the lower abdomen-pelvis, presumed hernia repairs. GASTROINTESTINAL TRACT: Moderate bowel gas in the left upper quadrant. Included bowel gas pattern is non-obstructive. RAD/Lumbar Spine 2 or 3 Views IMPRESSION: 1. Moderate multilevel degenerative disc and endplate changes, mild straightening of the usual lordotic curvature and mild scoliosis. 2. Similar configuration of multilevel degenerative changes and similar alignment on comparison to MRI 2021. 3. No say bone destruction. Electronically Signed: Floresita Mcgovern MD at 3:02 EDT ,
== END | disposition home or self-care (01) ==
LOC: RAD 09:26
PROVIDERS: PCP Family Medicine; Referring Provider Anesthesiology Pain Medicine; Visit Provider Anesthesiology Pain Medicine
DX: M47.816 Spondylosis without myelopathy or radiculopathy, lumbar region (principal)
CPT/HCPCS: 72100

== ENCOUNTER → 2024-08-07 | Outpatient (CLI) | payer MEDICARE, OTHER, SELFPAY ==
[2024-08-07 10:29] LABS: Absolute Lymphocyte Count 1.11 X10^3/uL (0.83-4.51); Absolute Neutrophil Count 3.3 X10^3/uL (2.0-7.7); Basophil# 0.03 X10^3/uL; Basophil% 0.6 % (0-1); Eosinophils% 1.9 % (0-5); Hematocrit 41.6 % (40-54); Hemoglobin 14.1 g/dL (13.0-16.5); Lymphocyte # 1.11 X10^3/ul (0.83-4.51); Lymphocyte % 20.9 % (19-41); Mean Corp Hgb Conc 33.9 g/dL (32-36); Mean Corpuscular Hgb 30.7 pg (27.0-32.0); Mean Corpuscular Volume 90.6 fL (80-94); Mean Platelet Vol. 9.7 fl (6.2-12.0); Monocyte# 0.76 X10^3/uL; Monocyte% 14.3 % (0-10); NRBC Flagged by Analyzer 0 % (0-5); Neutrophil # 3.28 X10^3/uL (2.7-7.7); Neutrophil % 61.9 % (47-70); Platelet Count 294 K/mm3 (150-450); RBC Distribution Width CV 13.2 % (11.6-14.6); RBC Distribution Width SD 43.4 fl (35.1-43.9); Red Blood Count 4.59 M/mm3 (4.6-6.2); White Blood Count 5.3 K/mm3 (4.4-11.0)
[2024-08-07 11:38] LABS: ALB/GLOB Ratio 1.1 RATIO (0.9-2.4); AST(SGOT) 18 U/L (15-37); Alanine Aminotransfer ALT/SGPT 22 U/L (16-61); Albumin, Serum 3.7 g/dL (3.2-5.0); Alkaline Phosphatase 83 U/L (45-117); Anion Gap 5 (5-15); BUN 17 mg/dL (7-18); Calcium,Total 9.4 mg/dL (8.5-10.1); Chloride 105 mmol/L (98-107); Creatinine, Serum 0.89 mg/dL (0.70-1.30); EST Glomerular Filtration Rate 88 mL/min (>60); Est Glom Filt Rate - Afr Amer 107 mL/min (>60); Globulin 3.5 g/dL (2.2-4.2); Glucose 92 mg/dL (74-106); Potassium 4.2 mmol/L (3.5-5.1); Protein, Total 7.2 g/dL (6.4-8.2); Sodium Level 137 mmol/L (136-145)
== END | disposition home or self-care (01) ==
PROVIDERS: PCP Family Medicine; Referring Provider Internal Medicine Rheumatology; Visit Provider Internal Medicine Rheumatology
DX: M06.09 Rheumatoid arthritis without rheumatoid factor, multiple sites (principal); Z79.899 Other long term (current) drug therapy
CPT/HCPCS: 36415; 80053; 85025

== ENCOUNTER → 2025-02-06 | Outpatient (CLI) | payer MEDICARE, OTHER, SELFPAY ==
[2025-02-06 10:12] LABS: Absolute Lymphocyte Count 0.95 X10^3/uL (0.83-4.51); Absolute Neutrophil Count 2.5 X10^3/uL (2.0-7.7); Basophil# 0.03 X10^3/uL; Basophil% 0.7 % (0-1); Eosinophil# 0.21 X10^3/uL; Eosinophils% 4.9 % (0-5); Hematocrit 41.1 % (40-54); Hemoglobin 13.7 g/dL (13.0-16.5); Lymphocyte # 0.95 X10^3/ul (0.83-4.51); Lymphocyte % 22.2 % (19-41); Mean Corp Hgb Conc 33.3 g/dL (32-36); Mean Corpuscular Hgb 29.5 pg (27.0-32.0); Mean Corpuscular Volume 88.6 fL (80-94); Mean Platelet Vol. 9.9 fl (6.2-12.0); Monocyte# 0.59 X10^3/uL; Monocyte% 13.8 % (0-10); NRBC Flagged by Analyzer 0 % (0-5); Neutrophil # 2.49 X10^3/uL (2.7-7.7); Neutrophil % 58.2 % (47-70); Platelet Count 241 K/mm3 (150-450); RBC Distribution Width CV 13.6 % (11.6-14.6); RBC Distribution Width SD 44.1 fl (35.1-43.9); Red Blood Count 4.64 M/mm3 (4.6-6.2); White Blood Count 4.3 K/mm3 (4.4-11.0)
[2025-02-06 10:35] LABS: ALB/GLOB Ratio 1.6 RATIO (0.9-2.4); AST(SGOT) 24 U/L (<=37); Alanine Aminotransfer ALT/SGPT 17 U/L (<=46); Albumin, Serum 4.1 g/dL (3.4-4.8); Alkaline Phosphatase 75 U/L (40-129); Anion Gap 10 (5-15); BUN 16 mg/dL (4-19); BUN/Creat Ratio 19.4 RATIO (10-20); Calcium,Total 9.1 mg/dL (7.6-11.0); Carbon Dioxide 23.1 mmol/L (21.0-32.0); Chloride 104 mmol/L (98-108); Creatinine, Serum 0.84 mg/dL (0.70-1.20); EST Glomerular Filtration Rate 90 (>60); Ferritin 30 ng/mL (37-417); Globulin 2.5 g/dL (2.2-4.2); Glucose 89 mg/dL (70-99); Potassium 4.2 mmol/L (3.3-5.1); Protein, Total 6.6 g/dL (5.9-8.4); Sodium Level 137 mmol/L (133-145); Total Bilirubin 0.41 mg/dL (0.00-1.30)
[2025-02-06 10:40] LABS: Erythrocyte Sedimentation Rate 5 mm/hr (0-20)
[2025-02-06 11:08] LABS: CRP < 3.00 mg/L (0.0-3.0)
== END | disposition home or self-care (01) ==
LOC: MTLAB 07:49
PROVIDERS: PCP Family Medicine; Referring Provider Family Medicine; Visit Provider Family Medicine
DX: M06.09 Rheumatoid arthritis without rheumatoid factor, multiple sites (principal); Z79.899 Other long term (current) drug therapy; R76.8 Other specified abnormal immunological findings in serum
CPT/HCPCS: 80053; 82728; 85025; 85652; 86140

== ENCOUNTER → 2025-02-12 | Outpatient (CLI) | payer MEDICARE, OTHER, SELFPAY ==
--- NOTE | 2025-02-12 08:45 | RAD_ITS ---
PROCEDURE: KNEE 4 OR MORE VIEWS 02/12/2025 REASON FOR EXAM: RHEUMATOID ARTHRITIS WITHOUT RHEUMATOID FACTOR, MULTIPLE SITES TECHNIQUE: 4 view(s) of the left knee COMPARISON: None FINDINGS: Bones: Normal mineralization of the osseous structures and. There is no osteolytic or osteoblastic activity. There are no fractures or dislocations. Joints: Mild arthritic changes involving the medial femorotibial joint and inferior aspect of the patellofemoral joint. The lateral femorotibial joint appears to be well preserved. Effusion: There is no suprapatellar bursa effusion. Soft tissues: No appreciable soft tissue swelling is noted. RAD/Knee 4 or More Views IMPRESSION: Mild arthritic changes of the femorotibial joint and inferior aspect of the pat ellofemoral joint. Reading Location: [id number]
--- NOTE | 2025-02-12 08:45 | RAD_ITS ---
PROCEDURE: KNEE 4 OR MORE VIEWS 02/12/2025 REASON FOR EXAM: RHEUMATOID ARTHRITIS WITHOUT RHEUMATOID FACTOR, MULTIPLE SITES TECHNIQUE: 4 view(s) of the right knee COMPARISON: 02/14/2024 FINDINGS: Bones: No significant osseous abnormalities. Joints: No narrowing. No calcified loose bodies. Effusion: Unremarkable. Soft tissues: Unremarkable. Other: Mild atherosclerotic calcific disease. RAD/Knee 4 or More Views IMPRESSION: NO EFFUSION ACUTE FRACTURE OR DISLOCATION. Reading Location: [place] [id number]
== END | disposition home or self-care (01) ==
LOC: LAB 08:23 → RAD 08:36
PROVIDERS: PCP Family Medicine; Referring Provider Internal Medicine Rheumatology; Visit Provider Internal Medicine Rheumatology
DX: M06.09 Rheumatoid arthritis without rheumatoid factor, multiple sites (principal); R79.0 Abnormal level of blood mineral
CPT/HCPCS: 73564

== ENCOUNTER → 2025-02-17 | Outpatient (CLI) | payer MEDICARE, OTHER, SELFPAY ==
--- OUTSIDE RECORDS SUMMARY | 2025-02-17 09:07 | XMS RPT_ITS | CCD ---
Author Organization [facility] Care Team Providers Care Housing Assistant Name Role Phone Magda Wiseman LPN S Unavailable Bowen JAMES Magda S Unavailable Guzman, Chen N Unavailable Guzman, Chen N Unavailable Guzman, Chen N Unavailable Eligio Wallace Unavailable Guzman, Chen N Unavailable Guzman, Chen N Unavailable Guzman, Chen N Unavailable Mili Jim LPN Unavailable Unavailab Mili Alanis LPN Unavailable Unavailab le Megan, Chen N Unavailable MD Ki Hunter Primary Care Provider Unavailabl e MD Ki Hunter Referring Provider Unavailable Dr. Anuj Johnson Attending Provider Dr. Harvey Ag Attending Provider Dr. Ki Hunter Primary Care Provider Dr. Ki Hunter Referring Provider Dr. Refugio Torres Referring Provider Dr. Ming Gomez Attending Provider Dr. Ki Hunter Primary Care Provider [phone] Dr. Ming Gomez Attending Provider Dr. Ki Hunter Primary Care Provider Dr. Ki Hunter Referring Provider Keith PIKE, [place] Lyla Mills Attending Provider Dale BOB, Dr. Emerson Primary Care Provider Dale BOB, Dr. Emerson Attending Provider Dale BOB, Dr. Emerson Referring Provider Navjot BOB, Dr. Peñaloza Other Provider Anabela Morfin Attending Unavailable Vellanki, Anabela Referring Unavailable Hunter, Ki Primary Care Unavailable Vellanki, Anabela Attending Unavailable Hunter, Ki Primary Care Unavailable Vellanki, Anabela Referring Unavailable Vellanki, Anabela Consulting Unavailable Hunter, Ki Primary Care Unavailable Hunter, Ki Attending Unavailable Hunter, Ki Referring Unavailable Vellanki, Anabela Consulting Unavailable Hunter, Ki Primary Care Unavailable Hunter, Ki Attending Unavailable Hunter, Ki Referring Unavailable Heath Busby Attending Unavailable Hunter, Ki Primary Care Unavailable Hunter, Ki Referring Unavailable Vellanki, Anabela Attending Unavailable Hunter, Ki Primary Care Unavailable Vellanki, Anabela Referring Unavailable Hunter, Ki Primary Care Unavailable Refugio Torres Attending Unavailable Refugio Torres Referring Unavailable Navjot BOB, Dr. Peñaloza Attending Provider Navjot BOB, Dr. Peñaloza Referring Provider Allergies Allergy Classification Reported Allergen(s) Allergy Type Date of Onset Reaction(s) Facility (12 sources) PENCILLIN drug allergy 1 [facility] Work Phone: (9 sources) Penicillins; Translations: [Penicillins] Allergy to substance [facility] Medications Current Medications Medication Drug Class(es) Dates Sig (Normalized) Sig (Original) azithromycin 250 mg oral tablet (5 sources) Macrolide Antimicrobial Start: 07-17-2023 Azithromycin 250 mg tablet Active 0 PO .COMPLEX April 08, 2024 12:00am For 250 mg dose pack: take 500 mg today (day 1), then 250 mg for 4 days (days 2-5) PO biotin 2.5 mg oral capsule (8 sources) Start: 09-19-2016 take 2 capsules by mouth once daily Biotin 2,500 MCG capsule Active 5000 ug PO DAILY September 19, 2016 1:00am Start: 09-19-2016 take 5000 ug by mouth once charley ly Biotin Active 5000 MCG PO DAILY September 19, 2016 12:00am Vwdhbzeatax-M9-Gnfmgbbhr Ser r (6 sources) Start: 09-19-2016 Glucosamine-D3 -[place]oswellia Serr Active 1 EACH PO DAILY September 19, 2016 8:20am Start: 09-19-2016 Glucosamine-D3 -Boswellia Serr Active 1 EACH PO DAILY September 19, 2016 1:00am Start: 09-19-2016 Glucosamine-D3 -Boswellia Serr Active 1 EACH PO DAILY September 19, 2016 12:00am Htrimtfgiem-I1-Pbwmqkcxx Ser r 1 EACH tablet (2 sources) Start: 09-19-2016 take 1 tablet by mouth once daily Whfiihuonui-M9-[place] Serr 1 EACH tablet Active 1 NMA PO DAILY September 19, 2016 1:00am Multivitamin capsule (2 sources) Start: 09-29-2019 Multivitamin capsule Active 1 NMA PO DAILY September 29, 2019 1:00am Multivitamin preparation (6 sources) Start: 09-29-2019 take 1 capsule by mouth once daily multivitamin Active 1 CAP PO DAILY September 29, 2019 12:23pm Start: 09-29-2019 take 1 capsule by mo ut once daily multivitamin Active 1 CAP PO DAILY September 29, 2019 1:00am Start: 09-29-2019 take 1 capsule by mo ut once daily multivitamin Active 1 CAP PO DAILY September 29, 2019 12:00am Completed/Discontinued Medications Medication Drug Class(es) Dates Sig (Normalized) Sig (Original) acetaminophen 325 mg / HYDROcodone bitartrate 5 mg oral tablet (8 sources) Opioid Agonist Start: 06-29-2017 End: 09-29-2019 Hydrocodone-Acetami nophen 1 TABLET tablet Discontinued 1 - 2 {tbl} PO EVERY 6 HOURS NEEDED as needed for Pain June 29, 2017 12:00am September 29, 2019 12:23pm Start: 06-29-2017 End: 09-29-2019 take 1 tablet by mouth every six hours as needed Hydrocodone-Acetaminophen Discontinued 1 - 2 TABLET PO EVERY 6 HOURS NEEDED June 28, 2017 11:00pm September 29, 2019 11:23am docusate sodium 100 mg oral capsule (8 sources) Start: 06-29-2017 End: 09-29-2019 take 1 capsule by mouth twice daily as needed for constipation Docusate Sodium 100 MG capsule Discontinued 100 mg PO TWICE DAILY NEEDED as needed for Constipation June 29, 2017 12:00am September 29, 2019 12:23pm meloxicam 15 mg oral tablet (20 sources) Nonsteroidal Anti-inflammatory Drug Start: 04-05-2017 End: 09-29-2019 take 1 tablet by mouth once daily Meloxicam 15 MG tablet Discontinued 15 mg PO DAILY June 25, 2017 12:00am September 29, 2019 12:23pm promethazine hydrochloride 25 mg oral tablet (8 sources) Phenothiazine Start: 06-29-2017 End: 09-29-2019 take 1 tablet by mouth every four hours as needed for nausea Promethazine 25 MG tablet Discontinued 25 mg PO EVERY 4 HOURS NEEDED as needed for Nausea June 29, 2017 12:00am September 29, 2019 12:23pm sulfamethoxazole 800 mg / trimethoprim 160 mg oral tablet (8 sources) Dihydrofolate Reductase Inhibitor Antibacterial, Sulfonamide Antimicrobial Start: 09-19-2016 End: 09-21-2016 Sulfamethoxazole -Trimethoprim 1 TABLET tablet Discontinued 1 {tbl} PO TWICE A DAY September 19, 2016 1:00am September 21, 2016 6:51pm Start: 09-19-2016 End: 09-21-2016 take 1 tablet by mouth twice daily Sulfamethoxazole-Trimethoprim Discontinu ed 1 TABLET PO TWICE A DAY September 19, 2016 12:00am September 21, 2016 5:51pm Problems Active Problems Problem Classification Problem Date Documented Date Episodic/Chronic Open wounds of head; neck; and trunk (18 sources) Laceration of forehead; Translations: [Scalp laceration] Onset: 06-01-2011 06-01-2011 Episodic Other connective tissue disease (7 sources) Biceps femoris tendinitis; Translations: [Other specified enthesopathies of unspecified lower limb, excluding foot] 01-14-2022 Episodic Other connective tissue disease (1 source) Other specified enthesopathies of unspecified lower limb, excluding foot; Translations: [Other synovitis and tenosynovitis] Episodic Other injuries and conditions due to external causes (6 sources) Common peroneal neuropathy; Translations: [Injury of peroneal nerve at lower leg level, unspecified leg, initial encounter] 11-17-2021 Episodic Other injuries and conditions due to external causes (3 sources) Injury of peroneal nerve at lower leg level, unspecified leg, initial encounter; Translations: [Injury to peroneal nerve] Episodic Other nervous system disorders (10 sources) Carpal tunnel syndrome, left upper limb; Translations: [Carpal tunnel syndrome, left upper limb] Onset: 04-05-2017 04-14-2017 Chronic Other nervous system disorders (2 sources) Common peroneal neuropathy; Translations: [Lesion of lateral popliteal nerve, unspecified lower limb] 11-17-2021 Chronic Other screening for suspected conditions (not mental disorders or infectious disease) (9 sources) Elevated C-reactive protein; Translations: [Elevated C-reactive protein (CRP)] Onset: 02-12-2025 09-29-2019 Episodic Other upper respiratory infections (4 sources) Acute sinusitis; Translations: [Acute sinusitis, unspecified] 07-17-2023 Episodic Residual codes; unclassified (8 sources) Family history of coronary arteriosclerosis; Translations: [Family history of ischemic heart disease and other diseases of the circulatory system] 09-29-2019 Episodic Rheumatoid arthritis and related disease (1 source) Rheumatoid arthritis without rheumatoid factor, multiple sites; Translations: [Rheumatoid arthritis without rheumatoid factor, multiple sites] Onset: 02-15-2025 Chronic Skin and subcutaneous tissue infections (8 sources) Cellulitis of leg, excluding foot; Translations: [Cellulitis of left lower limb] 09-28-2019 Episodic Spondylosis; intervertebral disc disorders; other back problems (1 source) Spondylosis without myelopathy or radiculopathy, lumbar region; Translations: [Spondylosis without myelopathy or radiculopathy, lumbar region] Onset: 07-26-2024 Chronic Spondylosis; intervertebral disc disorders; other back problems (19 sources) Lumbosacral radiculopathy; Translations: [Radiculopathy, lumbosacral region] Episodic Superficial injury; contusion (10 sources) Contusion of knee; Translations: [Contusion of unspecified knee, initial encounter] 09-28-2019 Episodic Unclassified (10 sources) Removal of suture ; Translations: [Encounter for removal of sutures] Onset: 06-01-2011 06-01-2011 Unclassified (2 sources) Aftercare ; Translations: [Encounter for other orthopedic aftercare] Onset: 07-12-2017 07-12-2017 Past or Other Problems Problem Classification Problem Date Documented Da te Episodic/Chronic Open wounds of extremities (5 sources) Laceration without foreign body of left thumb without damage to nail, initial encounter; Translations: [Laceration without foreign body of left thumb without damage to nail, initial encounter] Onset: 06-18-2017 06-18-2017 Episodic Other connective tissue disease (20 sources) Acquired trigger finger; Translations: [Pain in finger] Onset: 10-02-2016 06-11-2017 Episodic Other connective tissue disease (2 sources) Pain in finger; Translations: [Pain in left finger(s)] Onset: 10-14-2016 10-23-2016 Episodic Other connective tissue disease (2 sources) Trigger finger, left ring finger; Translations: [Trigger finger, left ring finger] Onset: 10-14-2016 10-23-2016 Episodic Other connective tissue disease (2 sources) Prepatellar bursitis; Translations: [Prepatellar bursitis, left knee] Onset: 10-02-2016 10-16-2016 Episodic Other injuries and conditions due to external causes (5 sources) Laceration - injury; Translations: [Injury, unspecified] Onset: 06-18-2017 06-18-2017 Episodic Other non-traumatic joint disorders (12 sources) Knee pain; Translations: [Pain in left knee] Onset: 10-02-2016 10-02-2016 Episodic Results Test Name Value Interpretation Reference Range Facility Knee 4 or More Viewson 02-12 Knee 4 or More Views [facility] [address] [place] [id number] Knee 4 or More Views MR#: [id number] Acct: [id number] Name: RANDY MONTEMAYOR Rep #: [id number] : [id number] M [id number] From: Shakira Young PCP: Dr. Ki Hunter MD Status: REG CLI Study: Knee 4 or More Views Date of Exam: 02/12/25 Exam# [id number] Ordering Dr: Anabela Morfin MD PROCEDURE: KNEE 4 OR MORE VIEWS 02/12/2025 REASON FOR EXAM: RHEUMATOID ARTHRITIS WITHOUT RHEUMATOID FACTOR, MULTIPLE SITES TECHNIQUE: 4 view(s) of the left knee COMPARISON: None FINDINGS: Bones: Normal mineralization of the osseous structures and. There is no osteolytic or osteoblastic activity. There are no fractures or dislocations. Joints: Mild arthritic changes involving the medial femorotibial joint and inferior aspect of the patellofemoral joint. The lateral femorotibial joint appears to be well preserved. Effusion: There is no suprapatellar bursa effusion. Soft tissues: No appreciable soft tissue swelling is noted. RAD/Knee 4 or More Views IMPRESSION: Mild arthritic changes of the femorotibial joint and inferior aspect of the patellofemoral joint. Reading Location: [facility] CC: Dr. Ki Hunter MD; Dr. Aanbela Morfin MD Mop Machine Operator: Signed Normal [facility] Knee 4 or More Views [facility] [address] [place] [id number] Knee 4 or More Views MR#: [id number] Acct: [id number] Name: RANDY MONTEMAYOR Rep #: [id number] : [id number] M [id number] From: Ki Stacy MD PCP: Dr. Ki Hunter MD Status: REG CLI Study: Knee 4 or More Views Date of Exam: 02/12/25 Exam# [id number] Ordering Dr: Anabela Morfin MD PROCEDURE: KNEE 4 OR MORE VIEWS 02/12/2025 REASON FOR EXAM: RHEUMATOID ARTHRITIS WITHOUT RHEUMATOID FACTOR, MULTIPLE SITES TECHNIQUE: 4 view(s) of the right knee COMPARISON: 02/14/2024 FINDINGS: Bones: No significant osseous abnormalities. Joints: No narrowing. No calcified loose bodies. Effusion: Unremarkable. Soft tissues: Unremarkable. Other: Mild atherosclerotic calcific disease. RAD/Knee 4 or More Views IMPRESSION: NO EFFUSION ACUTE FRACTURE OR DISLOCATION. Reading Location: [place] [address] CC: Dr. Ki Hunter MD; Dr. Anabela Morfin MD Mop Machine Operator: Signed Normal [facility] Absolute lymphocyte countOrd ered By: Ki Hunter on 02-06-2025 Lymphocytes Auto (Unsp spec) [#/Vol] 0.95 10*3/uL 0.83-4.51 [facility] Absolute neutrophil countOrd ered By: Ki Hunter on 02-06-2025 Neutrophils (Bld) [#/Vol] 2.5 10*3/uL 2.0-7.7 [facility] Anion gap in Serum or Plasma Ordered By: Ki Hunter on 02-06-2025 Anion gap [Moles/Vol] 10 mmol/L 5-15 [facility] Automated lymphocyte count a s percentage of total leukocytesOrdered By: Ki Hunter on 02-06-2025 Lymphocytes/100 WBC Auto (Unsp spec) 22.2 % 19- [facility] BUN/creatinine ratioOrdered By: Ki Hunter on 02-06-2025 Urea nitrogen/Creatinine [Mass ratio] 19.4 mg/mg 10-20 [facility] Basophil percentageOrdered B y: Ki Hunter on 02-06-2025 Basophils/100 WBC (Bld) 0.7 % 0-1 [facility] Bilirubin, totalOrdered By: Ki Hunter on 02-06-2025 Bilirubin [Mass/Vol] 0.41 mg/dL 0.00-1.30 [facility] CBC W/Diff, Automatedon 01-12 Absolute Lymph 0.95 X10 3/uL Normal 0.83-4.51 [facility] Comment on above: Order Comment: RESUL TS FOR FERRITIN GO TO ALL OTHER RESULTS GO TO DR. MORFIN Performed By: #### L 501.6710, L100.0100, L101.9900, L500.4050 #### [facility] [address] [place], [address] Absolute Neut 2.5 X10 3/uL Normal 2.0-7.7 [facility] Comment on above: Order Comment: RESUL TS FOR FERRITIN GO TO ALL OTHER RESULTS GO TO DR. MORFIN Performed By: #### L 501.6710, L100.0100, L101.9900, L500.4050 #### [facility] [address] [place], [address] Basophils/100 WBC (Bld) 0.7 % Normal 0-1 [facility] Comment on above: Order Comment: RESUL TS FOR FERRITIN GO TO ALL OTHER RESULTS GO TO DR. MORFIN Performed By: #### L 501.6710, L100.0100, L101.9900, L500.4050 #### [facility] [address] [place], [address] Eosinophils/100 WBC (Bld) 4.9 % Normal 0-5 [facility] Comment on above: Order Comment: RESUL TS FOR FERRITIN GO TO ALL OTHER RESULTS GO TO DR. MORFIN Performed By: #### L 501.6710, L100.0100, L101.9900, L500.4050 #### [facility] [address] [place], [address] Erythrocyte distribution width (RBC) [Ratio] 13.6 % Normal 11.6-14.6 [facility] Comment on above: Order Comment: RESUL TS FOR FERRITIN GO TO ALL OTHER RESULTS GO TO DR. MORFIN Performed By: #### L 501.6710, L100.0100, L101.9900, L500.4050 #### [facility] [address] [place], [address] Hematocrit (Bld) [Volume fraction] 41.1 % Normal 40-54 [facility] Comment on above: Order Comment: RESUL TS FOR FERRITIN GO TO ALL OTHER RESULTS GO TO DR. MORFIN Performed By: #### L 501.6710, L100.0100, L101.9900, L500.4050 #### [facility] [address] [place], [address] Hemoglobin (Bld) [Mass/Vol] 13.7 g/dL Normal 13.0-16.5 [facility] Comment on above: Order Comment: RESUL TS FOR FERRITIN GO TO ALL OTHER RESULTS GO TO DR. MORFIN Performed By: #### L 501.6710, L100.0100, L101.9900, L500.4050 #### [facility] [address] [place], [address] IG% 0.200 Normal 0.0-0.9 [facility] Comment on above: Order Comment: RESUL TS FOR FERRITIN GO TO ALL OTHER RESULTS GO TO DR. MORFIN Result Comment: IG% - Immature Granulocytes (promyelocytes, myelocytes and metamyelocytes) > 1% indicates that a LEFT SHIFT is Present. Performed By: #### L 501.6710, L100.0100, L101.9900, L500.4050 #### [facility] [address] [place], [address] Lymphocytes/100 WBC (Bld) 22.2 % Normal 19-41 [facility] Comment on above: Order Comment: RESUL TS FOR FERRITIN GO TO ALL OTHER RESULTS GO TO DR. MORFIN Performed By: #### L 501.6710, L100.0100, L101.9900, L500.4050 #### [facility] [address] [place], [address] MCH (RBC) [Entitic mass] 29.5 pg Normal 27.0-32.0 [facility] Comment on above: Order Comment: RESUL TS FOR FERRITIN GO TO ALL OTHER RESULTS GO TO DR. MORFIN Performed By: #### L 501.6710, L100.0100, L101.9900, L500.4050 #### [facility] [address] [place], [address] MCHC (RBC) [Mass/Vol] 33.3 g/dL Normal 32-36 [facility] Comment on above: Order Comment: RESUL TS FOR FERRITIN GO TO ALL OTHER RESULTS GO TO DR. MORFIN Performed By: #### L 501.6710, L100.0100, L101.9900, L500.4050 #### [facility] [address] [place], [address] MCV (RBC) [Entitic vol] 88.6 fL Normal 80-94 [facility] Comment on above: Order Comment: RESUL TS FOR FERRITIN GO TO ALL OTHER RESULTS GO TO DR. MORFIN Performed By: #### L 501.6710, L100.0100, L101.9900, L500.4050 #### [facility] [address] [place], [address] Monocytes/100 WBC (Bld) 13.8 % High 0-10 [facility] Comment on above: Order Comment: RESUL TS FOR FERRITIN GO TO ALL OTHER RESULTS GO TO DR. MORFIN Performed By: #### L 501.6710, L100.0100, L101.9900, L500.4050 #### [facility] [address] [place], [address] Neutrophils/100 WBC (Bld) 58.2 % Normal 47-70 [facility] Comment on above: Order Comment: RESUL TS FOR FERRITIN GO TO ALL OTHER RESULTS GO TO DR. MORFIN Performed By: #### L 501.6710, L100.0100, L101.9900, L500.4050 #### [facility] [address] [place], [address] Nucleated RBC (Bld) [#/Vol] 0 10*3/uL Normal 0-5 [facility] Comment on above: Order Comment: RESUL TS FOR FERRITIN GO TO ALL OTHER RESULTS GO TO DR. MORFIN Performed By: #### L 501.6710, L100.0100, L101.9900, L500.4050 #### [facility] [address] [place], [address] Platelet mean volume (Bld) [Entitic vol] 9.9 fL Normal 6.2-12.0 [facility] Comment on above: Order Comment: RESUL TS FOR FERRITIN GO TO ALL OTHER RESULTS GO TO DR. MORFIN Performed By: #### L 501.6710, L100.0100, L101.9900, L500.4050 #### [facility] [address] [place], [address] Platelets (Bld) [#/Vol] 241 10*3/uL Normal 150-450 [facility] Comment on above: Order Comment: RESUL TS FOR FERRITIN GO TO ALL OTHER RESULTS GO TO DR. MORFIN Performed By: #### L 501.6710, L100.0100, L101.9900, L500.4050 #### [facility] [address] [place], [address] RBC (Bld) [#/Vol] 4.64 10*6/uL Normal 4.6-6.2 [facility] Comment on above: Order Comment: RESUL TS FOR FERRITIN GO TO ALL OTHER RESULTS GO TO DR. MORFIN Performed By: #### L 501.6710, L100.0100, L101.9900, L500.4050 #### [facility] [address] [place], [address] RDW SD 44.1 fl High 35.1-43.9 [facility] Comment on above: Order Comment: RESUL TS FOR FERRITIN GO TO ALL OTHER RESULTS GO TO DR. MORFIN Performed By: #### L 501.6710, L100.0100, L101.9900, L500.4050 #### [facility] [address] [place], [address] WBC (Bld) [#/Vol] 4.3 10*3/uL Low 4.4-11.0 [facility] Comment on above: Order Comment: RESUL TS FOR FERRITIN GO TO ALL OTHER RESULTS GO TO DR. MORFIN Performed By: #### L 501.6710, L100.0100, L101.9900, L500.4050 #### [facility] [address] [place], [address] CRPon 02-06-2025 C-REACTIVE PROT < 3.00 Normal 0.0-3.0 [facility] Comment on above: Order Comment: Order Date: 08/28/24 Order Info: 2276-4 - YVETTE Performed By: #### L 501.6710, L100.0100, L101.9900, L500.4050 #### [facility] [address] [place], [address] Carbon dioxide, total [Moles /volume] in Central venous bloodOrdered By: Ki Hunter on 02-06-2025 CO2 [Moles/Vol] 23.1 mmol/L 21.0-32.0 [facility] Chloride assayOrdered By: Omi Hunter on 02-06-2025 Chloride [Moles/Vol] 104 mmol/L 98-108 [facility] Comprehensive Metabolic Prof ilon 02-06-2025 Albumin [Mass/Vol] 4.1 g/dL Normal 3.4-4.8 [facility] Comment on above: Order Comment: Order Date: 08/28/24 Order Info: 227-4 - YVETTE Performed By: #### L 501.6710, L100.0100, L101.9900, L500.4050 #### [facility] [address] [place], [address] Albumin/Globulin [Mass ratio] 1.6 {ratio} Normal 0.9-2.4 [facility] Comment on above: Order Comment: Order Date: 08/28/24 Order Info: 227-4 - YVETTE Performed By: #### L 501.6710, L100.0100, L101.9900, L500.4050 #### [facility] [address] [place], [address] ALK PHOS 75 U/L Normal 40-129 [facility] Comment on above: Order Comment: Order Date: 08/28/24 Order Info: 2276-4 - YVETTE Performed By: #### L 501.6710, L100.0100, L101.9900, L500.4050 #### [facility] [address] [place], [address] ALT [Catalytic activity/Vol] 17 U/L Normal <=46 [facility] Comment on above: Order Comment: Order Date: 08/28/24 Order Info: 2276-4 - YVETTE Performed By: #### L 501.6710, L100.0100, L101.9900, L500.4050 #### [facility] [address] [place], [address] AST [Catalytic activity/Vol] 24 U/L Normal <=37 [facility] Comment on above: Order Comment: Order Date: 08/28/24 Order Info: 2276-4 - YVETTE Performed By: #### L 501.6710, L100.0100, L101.9900, L500.4050 #### [facility] [address] [place], [address] Bilirubin [Mass/Vol] 0.41 mg/dL Normal 0.00-1.30 [facility] Comment on above: Order Comment: Order Date: 08/28/24 Order Info: 2276-4 - YVETTE Performed By: #### L 501.6710, L100.0100, L101.9900, L500.4050 #### [facility] [address] [place], [address] BUN/CRE 19.4 RATIO Normal 10-20 [facility] Comment on above: Order Comment: Order Date: 08/28/24 Order Info: 2276-4 - YVETTE Performed By: #### L 501.6710, L100.0100, L101.9900, L500.4050 #### [facility] [address] [place], [address] Calcium [Mass/Vol] 9.1 mg/dL Normal 7.6-11.0 [facility] Comment on above: Order Comment: Order Date: 08/28/24 Order Info: 2276-4 - YVETTE Performed By: #### L 501.6710, L100.0100, L101.9900, L500.4050 #### [facility] [address] [place], [address] Chloride [Moles/Vol] 104 mmol/L Normal 98-108 [facility] Comment on above: Order Comment: Order Date: 08/28/24 Order Info: 2276-4 - YVETTE Performed By: #### L 501.6710, L100.0100, L101.9900, L500.4050 #### [facility] [address] [place], [address] CO2 [Moles/Vol] 23.1 mmol/L Normal 21.0-32.0 [facility] Comment on above: Order Comment: Order Date: 08/28/24 Order Info: 2276-4 - YVETTE Performed By: #### L 501.6710, L100.0100, L101.9900, L500.4050 #### [facility] [address] [place], [address] Creatinine [Mass/Vol] 0.84 mg/dL Normal 0.70-1.20 [facility] Comment on above: Order Comment: Order Date: 08/28/24 Order Info: 2276-4 - YVTETE Performed By: #### L 501.6710, L100.0100, L101.9900, L500.4050 #### [facility] [address] [place], [address] GAP 10 Normal 5-15 [facility] Comment on above: Order Comment: Order Date: 08/28/24 Order Info: 2276-4 - YVETTE Performed By: #### L 501.6710, L100.0100, L101.9900, L500.4050 #### [facility] [address] [place], [address] GFR/1.73 sq M.predicted among non-blacks MDRD (S/P/Bld) [Vol rate/Area] 90 mL/min/{1.73_m2} Normal >60 [facility] Comment on above: Order Comment: Order Date: 08/28/24 Order Info: 2276-4 - YVETTE Result Comment: mL/m in/1.73m2 CKD-EPI Creatinine Equation (2020) Performed By: #### L 501.6710, L100.0100, L101.9900, L500.4050 #### [facility] [address] [place], [address] Globulin (S) [Mass/Vol] 2.5 g/dL Normal 2.2-4.2 [facility] Comment on above: Order Comment: Order Date: 08/28/24 Order Info: 227-4 - YVETTE Performed By: #### L 501.6710, L100.0100, L101.9900, L500.4050 #### [facility] [address] [place], [address] Glucose [Mass/Vol] 89 mg/dL Normal 70-99 [facility] Comment on above: Order Comment: Order Date: 08/28/24 Order Info: 2276-4 - YVETTE Performed By: #### L 501.6710, L100.0100, L101.9900, L500.4050 #### [facility] [address] [place], [address] Potassium [Moles/Vol] 4.2 mmol/L Normal 3.3-5.1 [facility] Comment on above: Order Comment: Order Date: 08/28/24 Order Info: 2276-4 - YVETTE Performed By: #### L 501.6710, L100.0100, L101.9900, L500.4050 #### [facility] [address] [place], [address] Sodium [Moles/Vol] 137 mmol/L Normal 133-145 [facility] Comment on above: Order Comment: Order Date: 08/28/24 Order Info: 2275-12 - YVETTE Performed By: #### L 501.6710, L100.0100, L101.9900, L500.4050 #### [facility] [address] [place], [place], [id number] T PROT 6.6 g/dL Normal 5.9-8.4 [facility] Comment on above: Order Comment: Order Date: 08/28/24 Order Info: 2275-12 - YVETTE Performed By: #### L 501.6710, L100.0100, L101.9900, L500.4050 #### [facility] [address] [place], [address] Urea nitrogen [Mass/Vol] 16 mg/dL Normal 4-19 [facility] Comment on above: Order Comment: Order Date: 08/28/24 Order Info: 2275-12 - YVETTE Performed By: #### L 501.6710, L100.0100, L101.9900, L500.4050 #### [facility] [address] [place], [address] Eosinophil percentageOrdered By: Ki Hunter on 02-06-2025 Eosinophils/100 WBC (Bld) 4.9 % 0-5 [facility] Erythrocyte Sed Rateon 02-06 SED RATE 5 mm/hr Normal 0-20 [facility] Comment on above: Order Comment: RESUL TS FOR FERRITIN GO TO ALL OTHER RESULTS GO TO DR. MORFIN Performed By: #### L 501.6710, L100.0100, L101.9900, L500.4050 #### [facility] [address] [place], [address] Erythrocyte distribution wid th ratioOrdered By: Ki Hunter on 02-06-2025 Erythrocyte distribution width (RBC) [Ratio] 13.6 % 11.6-14.6 [facility] Erythrocyte distribution wid th standard deviationOrdered By: Ki Hunter on 02-06-2025 Erythrocyte distribution width (RBC) [Ratio] 44.1 fl High 35.1-43.9 [facility] Erythrocyte sedimentation ra teOrdered By: Ki Hunter on 02-06-2025 ESR (Bld) [Velocity] 5 mm/h 0-20 [facility] Ferritinon 02-06-2025 Ferritin [Mass/Vol] 30 ng/mL Low 37-417 [facility] Comment on above: Order Comment: RESUL TS FOR FERRITIN GO TO ALL OTHER RESULTS GO TO DR. MORFIN Performed By: #### L 501.6710, L100.0100, L101.9900, L500.4050 #### [facility] [address] [place], [place], [address] Glomerular filtration rate ( GFR) estimation/1.73 sq m using serum, plasma, or whole bOrdered By: Ki Hunter on 02-06-2025 GFR/1.73 sq M.predicted among non-blacks MDRD (S/P/Bld) [Vol rate/Area] 90 mL/min/{1.73_m2} >60 [facility] Comment on above: mL/min/1.73m2 CKD-EP I Creatinine Equation (2020) Hematocrit Auto (Bld) [Volum e fraction]Ordered By: Ki Hunter on 02-06-2025 Hematocrit (Bld) [Volume fraction] 41.1 % 40-54 [facility] Hemoglobin measurementOrdere d By: Ki Hunter on 02-06-2025 Hemoglobin (Bld) [Mass/Vol] 13.7 g/dL 13.0-16.5 [facility] Immature granulocytes/100 WB C Auto (Bld)Ordered By: Ki Hunter on 02-06-2025 Immature granulocytes/100 WBC (Bld) 0.200 % 0.0-0.9 [facility] Comment on above: IG% - Immature Granu locytes (promyelocytes, myelocytes and metamyelocytes) > 1% indicates that a LEFT SHIFT is Present. Laboratory - Chemistry and C hemistry - challengeOrdered By: Ki Hunter on 02-06-2025 AST [Catalytic activity/Vol] 24 U/L <38 [facility] MCV (mean corpuscular volume ) determinationOrdered By: Ki Hunter on 02-06-2025 MCV (RBC) [Entitic vol] 88.6 fL 80-94 [facility] Mean corpuscular hemoglobin (MCH) determinationOrdered By: Ki Hunter on 02-06-2025 MCH (RBC) [Entitic mass] 29.5 pg 27.0-32.0 [facility] Mean corpuscular hemoglobin concentration (MCHC) determinationOrdered By: Ki Hunter on 02-06-2025 MCHC (RBC) [Mass/Vol] 33.3 g/dL 32-36 [facility] Mean platelet volume determi nationOrdered By: Ki Hunter on 02-06-2025 Platelet mean volume (Bld) [Entitic vol] 9.9 fL 6.2-12.0 [facility] Monocyte percentageOrdered B y: Ki Hunter on 02-06-2025 Monocytes/100 WBC (Bld) 13.8 % High 0-10 [facility] Neutrophil percentageOrdered By: Ki Hunter on 02-06-2025 Neutrophils/100 WBC (Bld) 58.2 % 47-70 [facility] Nucleated red blood cell per centageOrdered By: Ki Hunter on 02-06-2025 Nucleated RBC/100 WBC (Bld) [Ratio] 0 % 0-5 [facility] Platelet countOrdered By: Omi Hunter on 02-06-2025 Platelets (Bld) [#/Vol] 241 10*3/uL 150-450 [facility] Potassium measurement (mass/ volume)Ordered By: Ki Hunter on 02-06-2025 Potassium (Unsp spec) [Mass/Vol] 4.2 mmol/L 3.3-5.1 [facility] RBC Auto (Bld) [#/Vol]Ordere d By: Ki Hunter on 02-06-2025 RBC (Bld) [#/Vol] 4.64 10*6/uL 4.6-6.2 [facility] Serum creatinine measurement (mass/volume)Ordered By: Ki Hunter on 02-06-2025 Creatinine [Mass/Vol] 0.84 mg/dL 0.70-1.20 [facility] Serum globulin measurementOr dered By: Ki Hunter on 02-06-2025 Globulin (S) [Mass/Vol] 2.5 g/dL 2.2-4.2 [facility] Serum glucose measurement (m ass/volume)Ordered By: Ki Hunter on 02-06-2025 Glucose [Mass/Vol] 89 mg/dL 70-99 [facility] Serum or plasma C reactive p rotein measurement (mass/volume)Ordered By: Ki Hunter on 02-06-2025 CRP [Mass/Vol] mg/L 0.0-3.0 [facility] Serum or plasma alanine walter otransferase (ALT) measurementOrdered By: Ki Hunter on 02-06-2025 ALT [Catalytic activity/Vol] 17 U/L <47 [facility] Serum or plasma albumin oz urement (mass/volume)Ordered By: Ki Hunter on 02-06-2025 Albumin [Mass/Vol] 4.1 g/dL 3.4-4.8 [facility] Serum or plasma albumin/glob ulin mass ratioOrdered By: Ki Hunter on 02-06-2025 Albumin/Globulin [Mass ratio] 1.6 {ratio} 0.9-2.4 [facility] Serum or plasma alkaline letha sphatase measurementOrdered By: Ki Hunter on 02-06-2025 ALP [Catalytic activity/Vol] 75 U/L 40-129 [facility] Serum or plasma calcium oz urement (mass/volume)Ordered By: Ki Hunter on 02-06-2025 Calcium [Mass/Vol] 9.1 mg/dL 7.6-11.0 [facility] Serum or plasma ferritin ovidio surement (mass/volume)Ordered By: Ki Hunter on 02-06-2025 Ferritin [Mass/Vol] 30 ng/mL Low 37-417 [facility] Serum or plasma urea nitroge n measurement (mass/volume)Ordered By: Ki Hunter on 02-06-2025 Urea nitrogen [Mass/Vol] 16 mg/dL 4-19 [facility] Sodium levelOrdered By: Ki Hunter on 02-06-2025 Sodium [Moles/Vol] 137 mmol/L 133-145 [facility] Total proteinOrdered By: Tiffanie Hunter on 02-06-2025 Protein [Mass/Vol] 6.6 g/dL 5.9-8.4 [facility] White blood cell (WBC) count Ordered By: Ki Hunter on 02-06-2025 WBC (Bld) [#/Vol] 4.3 10*3/uL Low 4.4-11.0 [facility] CBC W/Diff, Automatedon 11-2 Absolute Lymph 1.11 X10 3/uL Normal 0.83-4.51 [facility] Comment on above: Performed By: #### L 501.6710, L100.0100, L101.9900, L500.4050 #### [facility] [address] [place], [address] Absolute Neut 3.3 X10 3/uL Normal 2.0-7.7 [facility] Comment on above: Performed By: #### L 501.6710, L100.0100, L101.9900, L500.4050 #### [facility] [address] [place], [address] Basophils/100 WBC (Bld) 0.6 % Normal 0-1 [facility] Comment on above: Performed By: #### L 501.6710, L100.0100, L101.9900, L500.4050 #### [facility] [address] [place], [address] Eosinophils/100 WBC (Bld) 1.9 % Normal 0-5 [facility] Comment on above: Performed By: #### L 501.6710, L100.0100, L101.9900, L500.4050 #### [facility] [address] [place], [address] Erythrocyte distribution width (RBC) [Ratio] 13.2 % Normal 11.6-14.6 [facility] Comment on above: Performed By: #### L 501.6710, L100.0100, L101.9900, L500.4050 #### [facility] [address] [place], [address] Hematocrit (Bld) [Volume fraction] 41.6 % Normal 40-54 [facility] Comment on above: Performed By: #### L 501.6710, L100.0100, L101.9900, L500.4050 #### [facility] [address] [place], [address] Hemoglobin (Bld) [Mass/Vol] 14.1 g/dL Normal 13.0-16.5 [facility] Comment on above: Performed By: #### L 501.6710, L100.0100, L101.9900, L500.4050 #### [facility] [address] [place], [address] IG% 0.400 Normal 0.0-0.9 [facility] Comment on above: Result Comment: IG% - Immature Granulocytes (promyelocytes, myelocytes and metamyelocytes) > 1% indicates that a LEFT SHIFT is Present. Performed By: #### L 501.6710, L100.0100, L101.9900, L500.4050 #### [facility] [address] [place], [address] Lymphocytes/100 WBC (Bld) 20.9 % Normal 19-41 [facility] Comment on above: Performed By: #### L 501.6710, L100.0100, L101.9900, L500.4050 #### [facility] [address] [place], [address] MCH (RBC) [Entitic mass] 30.7 pg Normal 27.0-32.0 [facility] Comment on above: Performed By: #### L 501.6710, L100.0100, L101.9900, L500.4050 #### [facility] [address] [place], [address] MCHC (RBC) [Mass/Vol] 33.9 g/dL Normal 32-36 [facility] Comment on above: Performed By: #### L 501.6710, L100.0100, L101.9900, L500.4050 #### [facility] [address] [place], [address] MCV (RBC) [Entitic vol] 90.6 fL Normal 80-94 [facility] Comment on above: Performed By: #### L 501.6710, L100.0100, L101.9900, L500.4050 #### [facility] [address] [place], [address] Monocytes/100 WBC (Bld) 14.3 % High 0-10 [facility] Comment on above: Performed By: #### L 501.6710, L100.0100, L101.9900, L500.4050 #### [facility] [address] [place], [address] Neutrophils/100 WBC (Bld) 61.9 % Normal 47-70 [facility] Comment on above: Performed By: #### L 501.6710, L100.0100, L101.9900, L500.4050 #### [facility] [address] [place], [address] Nucleated RBC (Bld) [#/Vol] 0 10*3/uL Normal 0-5 [facility] Comment on above: Performed By: #### L 501.6710, L100.0100, L101.9900, L500.4050 #### [facility] [address] [place], [address] Platelet mean volume (Bld) [Entitic vol] 9.7 fL Normal 6.2-12.0 [facility] Comment on above: Performed By: #### L 501.6710, L100.0100, L101.9900, L500.4050 #### [facility] [address] [place], [address] Platelets (Bld) [#/Vol] 294 10*3/uL Normal 150-450 [facility] Comment on above: Performed By: #### L 501.6710, L100.0100, L101.9900, L500.4050 #### [facility] [address] [place], [address] RBC (Bld) [#/Vol] 4.59 10*6/uL Low 4.6-6.2 [facility] Comment on above: Performed By: #### L 501.6710, L100.0100, L101.9900, L500.4050 #### [facility] [address] [place], [address] RDW SD 43.4 fl Normal 35.1-43.9 [facility] Comment on above: Performed By: #### L 501.6710, L100.0100, L101.9900, L500.4050 #### [facility] [address] [place], [address] WBC (Bld) [#/Vol] 5.3 10*3/uL Normal 4.4-11.0 [facility] Comment on above: Performed By: #### L 501.6710, L100.0100, L101.9900, L500.4050 #### [facility] [address] [place], [address] Comprehensive Metabolic [facility] 08-07-2024 Albumin [Mass/Vol] 3.7 g/dL Normal 3.2-5.0 [facility] Comment on above: Performed By: #### L 501.6710, L100.0100, L101.9900, L500.4050 #### [facility] [address] [place], [address] Albumin/Globulin [Mass ratio] 1.1 {ratio} Normal 0.9-2.4 [facility] Comment on above: Performed By: #### L 501.6710, L100.0100, L101.9900, L500.4050 #### [facility] [address] [place], [address] ALK P 83 U/L Normal 45-117 [facility] Comment on above: Performed By: #### L 501.6710, L100.0100, L101.9900, L500.4050 #### [facility] [address] [place], [address] ALT [Catalytic activity/Vol] 22 U/L Normal 16-61 [facility] Comment on above: Performed By: #### L 501.6710, L100.0100, L101.9900, L500.4050 #### [facility] [address] [place], [address] AST [Catalytic activity/Vol] 18 U/L Normal 15-37 [facility] Comment on above: Performed By: #### L 501.6710, L100.0100, L101.9900, L500.4050 #### [facility] [address] [place], [address] Bilirubin [Mass/Vol] 0.50 mg/dL Normal 0.20-1.00 [facility] Comment on above: Result Comment: For patients on eltrombopag therapy, use of Dimension [place] TBIL is not recommended. Performed By: #### L 501.6710, L100.0100, L101.9900, L500.4050 #### [facility] [address] [place], [address] BUN/CRE 19.0 RATIO Normal 10-20 [facility] Comment on above: Performed By: #### L 501.6710, L100.0100, L101.9900, L500.4050 #### [facility] [address] [place], [address] CA,Total 9.4 mg/dL Normal 8.5-10.1 [facility] Comment on above: Performed By: #### L 501.6710, L100.0100, L101.9900, L500.4050 #### [facility] [address] [place], [address] Chloride [Moles/Vol] 105 mmol/L Normal 98-107 [facility] Comment on above: Performed By: #### L 501.6710, L100.0100, L101.9900, L500.4050 #### [facility] [address] [place], [address] CO2 [Moles/Vol] 27.0 mmol/L Normal 21.0-32.0 [facility] Comment on above: Performed By: #### L 501.6710, L100.0100, L101.9900, L500.4050 #### [facility] [address] [place], [address] Creatinine [Mass/Vol] 0.89 mg/dL Normal 0.70-1.30 [facility] Comment on above: Result Comment: The validity of the calculated GFR GFRAA in patients over 70 years has not been determined. Clinical correlation is essential. Performed By: #### L 501.6710, L100.0100, L101.9900, L500.4050 #### [facility] [address] [place], [address] EST GFR - AA 107 mL/min Normal >60 [facility] Comment on above: Result Comment: Afri can [place] GFR Calc Performed By: #### L 501.6710, L100.0100, L101.9900, L500.4050 #### [facility] [address] [place], [address] GAP 5 Normal 5-15 [facility] Comment on above: Performed By: #### L 501.6710, L100.0100, L101.9900, L500.4050 #### [facility] [address] [place], [address] GFR/1.73 sq M.predicted among non-blacks MDRD (S/P/Bld) [Vol rate/Area] 88 mL/min/{1.73_m2} Normal >60 [facility] Comment on above: Result Comment: Non- GFR Calc Performed By: #### L 501.6710, L100.0100, L101.9900, L500.4050 #### [facility] [address] [place], [address] Globulin (S) [Mass/Vol] 3.5 g/dL Normal 2.2-4.2 [facility] Comment on above: Performed By: #### L 501.6710, L100.0100, L101.9900, L500.4050 #### [facility] [address] [place], [address] Glucose [Mass/Vol] 92 mg/dL Normal 74-106 [facility] Comment on above: Performed By: #### L 501.6710, L100.0100, L101.9900, L500.4050 #### [facility] [address] [place], [address] Potassium [Moles/Vol] 4.2 mmol/L Normal 3.5-5.1 [facility] Comment on above: Performed By: #### L 501.6710, L100.0100, L101.9900, L500.4050 #### [facility] [address] [place], [address] Sodium [Moles/Vol] 137 mmol/L Normal 136-145 [facility] Comment on above: Performed By: #### L 501.6710, L100.0100, L101.9900, L500.4050 #### [facility] [address] [place], [address] T PROT 7.2 g/dL Normal 6.4-8.2 [facility] Comment on above: Performed By: #### L 501.6710, L100.0100, L101.9900, L500.4050 #### [facility] [address] [place] [place], [address] Urea nitrogen [Mass/Vol] 17 mg/dL Normal 7-18 [facility] Comment on above: Performed By: #### L 501.6710, L100.0100, L101.9900, L500.4050 #### [facility] [address] [place], [address] Lumbar Spine 2 or 3 Viewson 07-05-2024 Lumbar Spine 2 or 3 Views [facility] [address] [place] [address] Lumbar Spine 2 or 3 Views MR#: [id number] Acct: [id number] Name: RANDY MONTEMAYOR Rep #: [id number] : [id number] M 73 From: Floresita Mcgovern MD PCP: Dr. Ki Hunter MD Status: REG CLI Study: Lumbar Spine 2 or 3 Views Date of Exam: Exam# [id number] Ordering Dr: Refugio Torres MD [id number] EXAM: XR LUMBOSACRAL SPINE, 2 OR 3 VIEWS CLINICAL INDICATION: DDD TECHNIQUE: Frontal and lateral views of the lumbar spine and sacrum. COMPARISON: MRI November 26, 2021 FINDINGS: VERTEBRAE: There is straightening of the usual lordotic curvature of the cervical spine at L2-L5, mild maintained lordosis at the lumbosacral junction. Question of mild increased dextroscoliosis centered at L2-3 but there was dextroscoliosis at this level on MRI in 2021. No visible endplate destruction. DISC SPACES: Moderate-marked disc space narrowing at L2-3, moderate disc space narrowing at L4-5, mild narrowing at L5-S1. Hypertrophic changes of the facet joints. Multilevel mild endplate sclerosis. SOFT TISSUES: Extensive postoperative changes over the lower abdomen-pelvis, presumed hernia repairs. GASTROINTESTINAL TRACT: Moderate bowel gas in the left upper quadrant. Included bowel gas pattern is non-obstructive. RAD/Lumbar Spine 2 or 3 Views IMPRESSION: 1. Moderate multilevel degenerative disc and endplate changes, mild straightening of the usual lordotic curvature and mild scoliosis. 2. Similar configuration of multilevel degenerative changes and similar alignment on comparison to MRI 2021. 3. No say bone destruction. Electronically Signed: Floresita Mcgovern MD at 3:02 EDT , CC: Dr. Refugio Torres MD; Dr. 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 [employer] [id number] Tour Counselor: Giles Bhakta PhD, Phone: [phone] Performed By: #### L 501.6710, L100.0100, L101.9900, L500.4050 #### [facility] [place], [address] CCP IgG Antibodieson 024 CCP IgG Ab. 5 units Normal 0-19 [facility] Comment on above: Result Comment: Nega tive <20 Weak positive 20 - 39 Moderate positive 40 - 59 Strong positive >59 Performed at: [facility] [id number] Tour Counselor: Giles Bhakta PhD, Phone: [phone] Performed By: #### L 501.6710, L100.0100, L101.9900, L500.4050 #### [facility] [address] [place], [address] CBC W/Diff, Automatedon 08-09 14-2023 Absolute Lymph 1.33 X10 3/uL Normal 0.83-4.51 [facility] Comment on above: Performed By: #### L 4600.0100, L100.0100, L3890.6200, L101.9900, L3890.6100, L505.7010, L500.4050, L3100.5475, L3890.6300 #### [facility] [address] [place], [address] Absolute Neut 3.3 X10 3/uL Normal 2.0-7.7 [facility] Comment on above: Performed By: #### L 4600.0100, L100.0100, L3890.6200, L101.9900, L3890.6100, L505.7010, L500.4050, L3100.5475, L3890.6300 #### [facility] [address] [place], [address] Basophils/100 WBC (Bld) 0.4 % Normal 0-1 [facility] Comment on above: Performed By: #### L 4600.0100, L100.0100, L3890.6200, L101.9900, L3890.6100, L505.7010, L500.4050, L3100.5475, L3890.6300 #### [facility] [address] [place], [address] Eosinophils/100 WBC (Bld) 1.5 % Normal 0-5 [facility] Comment on above: Performed By: #### L 4600.0100, L100.0100, L3890.6200, L101.9900, L3890.6100, L505.7010, L500.4050, L3100.5475, L3890.6300 #### [facility] [address] [place], [place], [address] Erythrocyte distribution width (RBC) [Ratio] 13.5 % Normal 11.6-14.6 [facility] Comment on above: Performed By: #### L 4600.0100, L100.0100, L3890.6200, L101.9900, L3890.6100, L505.7010, L500.4050, L3100.5475, L3890.6300 #### [facility] [address] [place], [place], [id number] Hematocrit (Bld) [Volume fraction] 43.9 % Normal 40-54 [facility] Comment on above: Performed By: #### L 4600.0100, L100.0100, L3890.6200, L101.9900, L3890.6100, L505.7010, L500.4050, L3100.5475, L3890.6300 #### [facility] [address] [place], [place], [address] Hemoglobin (Bld) [Mass/Vol] 14.5 g/dL Normal 13.0-16.5 [facility] Comment on above: Performed By: #### L 4600.0100, L100.0100, L3890.6200, L101.9900, L3890.6100, L505.7010, L500.4050, L3100.5475, L3890.6300 #### [facility] [address] [place], [place], [address] IG% 0.400 Normal 0.0-0.9 [facility] Comment on above: Result Comment: IG% - Immature Granulocytes (promyelocytes, myelocytes and metamyelocytes) > 1% indicates that a LEFT SHIFT is Present. Performed By: #### L 4600.0100, L100.0100, L3890.6200, L101.9900, L3890.6100, L505.7010, L500.4050, L3100.5475, L3890.6300 #### [facility] [address] [place], [place], [address] Lymphocytes/100 WBC (Bld) 25.6 % Normal 19-41 [facility] Comment on above: Performed By: #### L 4600.0100, L100.0100, L3890.6200, L101.9900, L3890.6100, L505.7010, L500.4050, L3100.5475, L3890.6300 #### [facility] [address] [place], [address] MCH (RBC) [Entitic mass] 30.1 pg Normal 27.0-32.0 [facility] Comment on above: Performed By: #### L 4600.0100, L100.0100, L3890.6200, L101.9900, L3890.6100, L505.7010, L500.4050, L3100.5475, L3890.6300 #### [facility] [address] [place], [address] MCHC (RBC) [Mass/Vol] 33.0 g/dL Normal 32-36 [facility] Comment on above: Performed By: #### L 4600.0100, L100.0100, L3890.6200, L101.9900, L3890.6100, L505.7010, L500.4050, L3100.5475, L3890.6300 #### [facility] [address] [place], [address] MCV (RBC) [Entitic vol] 91.1 fL Normal 80-94 [facility] Comment on above: Performed By: #### L 4600.0100, L100.0100, L3890.6200, L101.9900, L3890.6100, L505.7010, L500.4050, L3100.5475, L3890.6300 #### [facility] [address] [place], [address] Monocytes/100 WBC (Bld) 8.3 % Normal 0-10 [facility] Comment on above: Performed By: #### L 4600.0100, L100.0100, L3890.6200, L101.9900, L3890.6100, L505.7010, L500.4050, L3100.5475, L3890.6300 #### [facility] [address] [place], [address] Neutrophils/100 WBC (Bld) 63.8 % Normal 47-70 [facility] Comment on above: Performed By: #### L 4600.0100, L100.0100, L3890.6200, L101.9900, L3890.6100, L505.7010, L500.4050, L3100.5475, L3890.6300 #### [facility] [address] [place], [address] Nucleated RBC (Bld) [#/Vol] 0 10*3/uL Normal 0-5 [facility] Comment on above: Performed By: #### L 4600.0100, L100.0100, L3890.6200, L101.9900, L3890.6100, L505.7010, L500.4050, L3100.5475, L3890.6300 #### [facility] [address] [place], [address] Platelet mean volume (Bld) [Entitic vol] 10.1 fL Normal 6.2-12.0 [facility] Comment on above: Performed By: #### L 4600.0100, L100.0100, L3890.6200, L101.9900, L3890.6100, L505.7010, L500.4050, L3100.5475, L3890.6300 #### [facility] [address] [place], [address] Platelets (Bld) [#/Vol] 245 10*3/uL Normal 150-450 [facility] Comment on above: Performed By: #### L 4600.0100, L100.0100, L3890.6200, L101.9900, L3890.6100, L505.7010, L500.4050, L3100.5475, L3890.6300 #### [facility] [address] [place], [address] RBC (Bld) [#/Vol] 4.82 10*6/uL Normal 4.6-6.2 [facility] Comment on above: Performed By: #### L 4600.0100, L100.0100, L3890.6200, L101.9900, L3890.6100, L505.7010, L500.4050, L3100.5475, L3890.6300 #### [facility] [address] [place], [address] RDW SD 45.8 fl High 35.1-43.9 [facility] Comment on above: Performed By: #### L 4600.0100, L100.0100, L3890.6200, L101.9900, L3890.6100, L505.7010, L500.4050, L3100.5475, L3890.6300 #### [facility] [address] [place], [address] WBC (Bld) [#/Vol] 5.2 10*3/uL Normal 4.4-11.0 [facility] Comment on above: Performed By: #### L 4600.0100, L100.0100, L3890.6200, L101.9900, L3890.6100, L505.7010, L500.4050, L3100.5475, L3890.6300 #### [facility] [address] [place], [address] Comprehensive Metabolic Prof ilon 04-24-2024 Albumin [Mass/Vol] 4.0 g/dL Normal 3.2-5.0 [facility] Comment on above: Performed By: #### L 4600.0100, L100.0100, L3890.6200, L101.9900, L3890.6100, L505.7010, L500.4050, L3100.5475, L3890.6300 #### [facility] [address] [place], [address] Albumin/Globulin [Mass ratio] 1.1 {ratio} Normal 0.9-2.4 [facility] Comment on above: Performed By: #### L 4600.0100, L100.0100, L3890.6200, L101.9900, L3890.6100, L505.7010, L500.4050, L3100.5475, L3890.6300 #### [facility] [address] [place], [address] ALK P 77 U/L Normal 45-117 [facility] Comment on above: Performed By: #### L 4600.0100, L100.0100, L3890.6200, L101.9900, L3890.6100, L505.7010, L500.4050, L3100.5475, L3890.6300 #### [facility] [address] [place], [address] ALT [Catalytic activity/Vol] 22 U/L Normal 16-61 [facility] Comment on above: Performed By: #### L 4600.0100, L100.0100, L3890.6200, L101.9900, L3890.6100, L505.7010, L500.4050, L3100.5475, L3890.6300 #### [facility] [address] [place], [place], [id number] AST [Catalytic activity/Vol] 19 U/L Normal 15-37 [facility] Comment on above: Performed By: #### L 4600.0100, L100.0100, L3890.6200, L101.9900, L3890.6100, L505.7010, L500.4050, L3100.5475, L3890.6300 #### [facility] [address] [place], [place], [id number] (427) Bilirubin [Mass/Vol] 0.50 mg/dL Normal 0.20-1.00 [facility] Comment on above: Result Comment: For patients on eltrombopag therapy, use of Dimension [place] TBIL is not recommended. Performed By: #### L 4600.0100, L100.0100, L3890.6200, L101.9900, L3890.6100, L505.7010, L500.4050, L3100.5475, L3890.6300 #### [facility] [address] [place], [address] BUN/CRE 20.4 RATIO High 10-20 [facility] Comment on above: Performed By: #### L 4600.0100, L100.0100, L3890.6200, L101.9900, L3890.6100, L505.7010, L500.4050, L3100.5475, L3890.6300 #### [facility] [address] [place], [address] CA,Total 9.3 mg/dL Normal 8.5-10.1 [facility] Comment on above: Performed By: #### L 4600.0100, L100.0100, L3890.6200, L101.9900, L3890.6100, L505.7010, L500.4050, L3100.5475, L3890.6300 #### [facility] [address] [place], [place], [id number] Chloride [Moles/Vol] 104 mmol/L Normal 98-107 [facility] Comment on above: Performed By: #### L 4600.0100, L100.0100, L3890.6200, L101.9900, L3890.6100, L505.7010, L500.4050, L3100.5475, L3890.6300 #### [facility] [address] [place], [address] (179) CO2 [Moles/Vol] 28.0 mmol/L Normal 21.0-32.0 [facility] Comment on above: Performed By: #### L 4600.0100, L100.0100, L3890.6200, L101.9900, L3890.6100, L505.7010, L500.4050, L3100.5475, L3890.6300 #### [facility] [address] [place], [address] Creatinine [Mass/Vol] 0.83 mg/dL Normal 0.70-1.30 [facility] Comment on above: Result Comment: The validity of the calculated GFR GFRAA in patients over 70 years has not been determined. Clinical correlation is essential. Performed By: #### L 4600.0100, L100.0100, L3890.6200, L101.9900, L3890.6100, L505.7010, L500.4050, L3100.5475, L3890.6300 #### [facility] [address] [place], [place], [id number] EST GFR - AA 115 mL/min Normal >60 [facility] Comment on above: Result Comment: Afri can [place] GFR Calc Performed By: #### L 4600.0100, L100.0100, L3890.6200, L101.9900, L3890.6100, L505.7010, L500.4050, L3100.5475, L3890.6300 #### [facility] [address] [place], [place], [id number] GAP 5 Normal 5-15 [facility] Comment on above: Performed By: #### L 4600.0100, L100.0100, L3890.6200, L101.9900, L3890.6100, L505.7010, L500.4050, L3100.5475, L3890.6300 #### [facility] [address] [place], [place], [id number] GFR/1.73 sq M.predicted among non-blacks MDRD (S/P/Bld) [Vol rate/Area] 95 mL/min/{1.73_m2} Normal >60 [facility] Comment on above: Result Comment: Non- GFR Calc Performed By: #### L 4600.0100, L100.0100, L3890.6200, L101.9900, L3890.6100, L505.7010, L500.4050, L3100.5475, L3890.6300 #### [facility] [address] [place], [address] Globulin (S) [Mass/Vol] 3.5 g/dL Normal 2.2-4.2 [facility] Comment on above: Performed By: #### L 4600.0100, L100.0100, L3890.6200, L101.9900, L3890.6100, L505.7010, L500.4050, L3100.5475, L3890.6300 #### [facility] [address] [place], [address] Glucose [Mass/Vol] 82 mg/dL Normal 74-106 [facility] Comment on above: Performed By: #### L 4600.0100, L100.0100, L3890.6200, L101.9900, L3890.6100, L505.7010, L500.4050, L3100.5475, L3890.6300 #### [facility] [address] [place], [address] Potassium [Moles/Vol] 3.9 mmol/L Normal 3.5-5.1 [facility] Comment on above: Performed By: #### L 4600.0100, L100.0100, L3890.6200, L101.9900, L3890.6100, L505.7010, L500.4050, L3100.5475, L3890.6300 #### [facility] [address] [place], [address] Sodium [Moles/Vol] 137 mmol/L Normal 136-145 [facility] Comment on above: Performed By: #### L 4600.0100, L100.0100, L3890.6200, L101.9900, L3890.6100, L505.7010, L500.4050, L3100.5475, L3890.6300 #### [facility] [address] [place], [address] T PROT 7.5 g/dL Normal 6.4-8.2 [facility] Comment on above: Performed By: #### L 4600.0100, L100.0100, L3890.6200, L101.9900, L3890.6100, L505.7010, L500.4050, L3100.5475, L3890.6300 #### [facility] [address] [place], [address] Urea nitrogen [Mass/Vol] 17 mg/dL Normal 7-18 [facility] Comment on above: Performed By: #### L 4600.0100, L100.0100, L3890.6200, L101.9900, L3890.6100, L505.7010, L500.4050, L3100.5475, L3890.6300 #### [facility] [address] [place], [address] Erythrocyte Sed Rateon 04-24 SED RATE 6 mm/hr Normal 0-20 [facility] Comment on above: Performed By: #### L 4600.0100, L100.0100, L3890.6200, L101.9900, L3890.6100, L505.7010, L500.4050, L3100.5475, L3890.6300 #### [facility] [address] [place], [address] Hepatitis B Surface Antibody on 04-24-2024 HEP B Surf Ab Non-Reactive Normal [facility] Comment on above: Result Comment: Non Reactive: Inconsistent with immunity less than <10 mIU/mL Reactive: Consistent with immunity greater than or equal to 10 mIU/mL Performed By: #### L 4600.0100, L100.0100, L3890.6200, L101.9900, L3890.6100, L505.7010, L500.4050, L3100.5475, L3890.6300 #### [facility] [address] [place], [place], [id number] Hepatitis B Surface Antigeno n 04-24-2024 HEP B Surf Ag Non-Reactive Normal Nonreactive [facility] Comment on above: Performed By: #### L 4600.0100, L100.0100, L3890.6200, L101.9900, L3890.6100, L505.7010, L500.4050, L3100.5475, L3890.6300 #### [facility] [address] [place], [address] Hepatitis C Antibodyon 04-24 Hepatitis C AB Non-Reactive Normal Nonreactive [facility] Comment on above: Result Comment: Non Reactive: < 0.8 Equivocal: >/= 0.8 to < 1.0 Reactive: >/= 1.0 The CDC requires that a reactive/equivocal HCV antibody result be sent out for confirmation. HCV Quant by PCR testing. Performed By: #### L 4600.0100, L100.0100, L3890.6200, L101.9900, L3890.6100, L505.7010, L500.4050, L3100.5475, L3890.6300 #### [facility] [address] [place], [address] Pelvis 1 or 2 Viewson 2023 Pelvis 1 or 2 Views [facility] [address] [place] [address] Pelvis 1 or 2 Views MR#: [id number] Acct: [id number] Name: RANDY MONTEMAYOR Rep #: [id number] : 1950 73 From: Dez Kessler MD PCP: Dr. Ki Hunter MD Status: REG CLI Study: Pelvis 1 or 2 Views Date of Exam: 04/24/24 Exam# [id number] Ordering Dr: Anabela Morfin MD [id number] INDICATION: Rheumatoid arthritis -- ATTN HIPS EXAMINATION/TECHNI QUE: X-RAY - XR Pelvis 1 or 2 Views COMPARISON: 01/14/2022. FINDINGS: PELVIC BONES: No fracture. The sacroiliac joints are unremarkable. The pubic symphysis is not widened. HIPS: No evidence of a fracture or dislocation. No erosive changes. SOFT TISSUES: Unremarkable. _ RAD/Pelvis 1 or 2 Views IMPRESSION: Unremarkable view of the pelvis and bilateral hips. Electronically Signed: Dez Kessler DO at 22:33 EDT , CC: Dr. Ki Hunter MD; Dr. 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, [address] Urgent Care Visit Reporton 0 04-08-2024 Urgent Care Visit Report [facility] [address], [address] [place], [place] [address] OFFICE VISIT Date of Service: 04/08/24 MR#: [id number] Acct: [id number] Name: RANDY MONTEMAYOR Rep #: [id number] : 1950 Provider: GLENDY Page Age/Sex: 73/M Location: [facility] Status: Signed Intake Vital Signs 07/17/23 08:56 04/08/24 08:10 Height 5 ft 8 in Weight: 175 lb BMI 26.6 BP 161/90 H 130/62 H Blood Pressure Location Lt brachial Lt brachial Position Sitting Sitting Respiration 16 16 Pulse 83 67 Pulse Source Monitor NIBP Temp 98.1 F Temp Source Temporal Pulse Oximetry (%) 94 98 Oxygen Delivery Method room air room air Intake Visit Reasons: SPLINTER IN R THUMB Chief Complaint: right thumb splinter 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 tenderness to area, no redness/swelling/d rainage noted. [facility] Medical History (Updated 04/08/24 @ 09:10 by GLENDY Carlisle) Foreign body of right thumb Scalp laceration Cervicalgia Lumbar radiculopathy Raynaud disease Osteoarthritis Surgical History History of herniorrhaphy Family History Father Hypertension Myocardial infarction, Onset Age: 79 Grandfather No problems noted. 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 Localized aching discomfort, wishing to have foreign body removed at this time before he goes out of the country here in 3 days. Last Td less than 10 years ago. Tpnwh-oxcn-ngsvvyh t. No yuhw-qia-qbmnuww products taken to assist. No other associated symptoms and no other alleviating/aggrav ating factors. ROS Const Constitutional: No other (As above) Exam Const General: cooperative, healthy appearing and no acute distress Orientation: alert and awake Chest Chest palpation inspection: normal inspection of the chest Resp Effort Inspection: normal respiratory effort and able to speak in complete sentences Cardio Rate: regular rate Pulses: radial pulses present GI Inspection: normal to inspection Palpation: soft Skin General: no rashes or lesions noted Neuro General: patient alert and patient awake Cognition: normal cognition Speech: speech normal Extrem General: capillary refill normal and normal exam except as noted (Foreign body retention visualized underneath right nail plate; see procedur) Psych Appearance: grossly normal Mental Status: mental status grossly normal Mood: congruent mood Affect: normal affect Speech and Movement: speech and movement normal Attitude: cooperative Office Procedures Foreign Body Removal/Debrideme Time Out Consent Signed: No Time out checklist: patient, procedure, site marked/identified, positioning of patient, supplies available and allergies confirmed Procedure Performed By Procedure performed by: Heath Grider Foreign Body Removal Foreign body, simple: Yes Details Details: Site was sterilely cleansed and prepped with Betadine and saline, then field block with 2% lidocaine 1 mL injected to the right thumb DP, then foreign body removal was performed with 18-gauge needle under the nail plate, recleansed with Hibiclens and saline thereafter and bacitracin, dressing, Coban applied thereafter which patient tolerated well Coding Level of Care Code Off vis,est,level 3 Diagnoses Foreign body of right thumb S60.351A CPT Codes Foreign Body Removal - Foreign body, simple: Yes (27318) Assessment and Plan Assessment and Plan (1) Foreign body of right thumb: Status: Acute Plan: See procedure above. Wound care as instructed today. While out of state on vacation should signs and symptoms of infection develop as discussed in office today, patient is to start azithromycin as prescribed today and follow-up with local clinician as needed. Patient states acknowledging understanding all the above. This note was generated with Pic[employer] dictation software. It may contain incorrect words, spelling, and punctuation that were not noted in checking the note before signing. Medications: New azithromycin For 250 mg dose pack: take 500 mg today (day 1), then 250 mg for 4 days (days 2-5) PO 6 tabs 0RF Clinical Quality Measures Falls Risk Screening/Assistiv e Devices Have y (more content not included)... Normal [facility] Absolute lymphocyte countOrd ered By: Ki Hunter on 04-09-2023 Lymphocytes Auto (Unsp spec) [#/Vol] 1.01 10*3/uL 0.83-4.51 [facility] Basophil percentageOrdered B y: Ki Hunter on 04-09-2023 Basophils/100 WBC (Bld) 0.5 % 0-1 [facility] Bilirubin [Mass/Vol] 0.70 mg/dL 0.20-1.00 [facility] Comment on above: For patients on eltr ombopag therapy, use of Dimension [place] TBIL is not recommended. Chloride [Moles/Vol] 106 mmol/L 98-107 [facility] Eosinophils/100 WBC (Bld) 2.0 % 0-5 [facility] Glucose [Mass/Vol] 88 mg/dL 74-106 [facility] Neutrophils (Bld) [#/Vol] 2.5 10*3/uL 2.0-7.7 [facility] Neutrophils/100 WBC (Bld) 61.2 % 47-70 [facility] Potassium [Moles/Vol] 4.2 mmol/L 3.5-5.1 [facility] Protein [Mass/Vol] 7.3 g/dL 6.4-8.2 [facility] Sodium [Moles/Vol] 137 mmol/L 136-145 [facility] WBC (Bld) [#/Vol] 4.1 10*3/uL 4.4-11.0 [facility] Blood erythrocytes count (nu mber/volume)Ordered By: Ki Hunter on 04-09-2023 RBC (Bld) [#/Vol] 4.62 10*6/uL 4.6-6.2 [facility] Blood hemoglobin measurement (mass/volume)Ordered By: Ki Hunter on 04-09-2023 Hemoglobin (Bld) [Mass/Vol] 14.1 g/dL 13.0-16.5 [facility] Blood lymphocytes/100 leukoc ytesOrdered By: Ki Hunter on 04-09-2023 Lymphocytes/100 WBC (Bld) 24.6 % 19-41 [facility] Blood monocytes/100 leukocyt esOrdered By: Ki Hunter on 04-09-2023 Monocytes/100 WBC (Bld) 11.5 % 0-10 [facility] Blood platelet mean volumeOr dered By: Ki Hunter on 04-09-2023 Platelet mean volume (Bld) [Entitic vol] 9.7 fL 6.2-12.0 [facility] Determination of erythrocyte mean corpuscular volume (MCV)Ordered By: Ki Hunter on 04-09-2023 MCV (RBC) [Entitic vol] 90.3 fL 80-94 [facility] Erythrocyte sedimentation ra teOrdered By: Ki Hunter on 04-09-2023 ESR (Bld) [Velocity] 7 mm/h 0-20 [facility] Hematocrit Auto (Bld) [Volum e fraction]Ordered By: Ki Hunter on 04-09-2023 Hematocrit (Bld) [Volume fraction] 41.7 % 40-54 [facility] - Chemistry and C hemistry - challengeOrdered By: Ki Hunter on 04-09-2023 ALP [Catalytic activity/Vol] 79 U/L 45-117 [facility] ALT [Catalytic activity/Vol] 26 U/L 16-61 [facility] CO2 [Moles/Vol] 27.0 mmol/L 21.0-32.0 [facility] Globulin (S) [Mass/Vol] 3.7 g/dL 2.2-4.2 [facility] Urea nitrogen/Creatinine [Mass ratio] 19.6 mg/mg 10-20 [facility] - Hematology and Cell countsOrdered By: Ki Hunter on 04-09-2023 Erythrocyte distribution width (RBC) [Entitic vol] 42.7 fL 35.1-43.9 [facility] Erythrocyte distribution width (RBC) [Ratio] 13.0 % 11.6-14.6 [facility] Immature granulocytes/100 WBC (Bld) 0.200 % 0.0-0.9 [facility] Comment on above: IG% - Immature Granu locytes (promyelocytes, myelocytes and metamyelocytes) > 1% indicates that a LEFT SHIFT is Present. MCH (RBC) [Entitic mass] 30.5 pg 27.0-32.0 [facility] Nucleated RBC/100 WBC (Bld) [Ratio] 0 % 0-5 [facility] MCHC Auto (RBC) [Mass/Vol]Or dered By: Ki Hunter on 04-09-2023 MCHC (RBC) [Mass/Vol] 33.8 g/dL 32-36 [facility] No Panel InformationOrdered By: Ki Hunter on 04-09-2023 Addendum Document Comment . [facility] Comment on above: The SPE pattern appe ars unremarkable. Evidence ofmonoclonal protein is not apparent. Xidxc-8-Sctzhahay 0.2 g/dL 0.0-0.4 [facility] Cjcad-9-Wawpzhprh 0.7 g/dL 0.4-1.0 [facility] Anti-Nuclear Antibody Screen Negative Negative [facility] Comment on above: Performed at: [employer] [address] [id number] Director: Giles Bhakta PhD, Phone: [phone] Estimated GFR (MDRD) Amer 110 mL/min >60 [facility] Comment on above: GFR Calc Estimated GFR (MDRD) Non-Af Amer 91 mL/min >60 [facility] Comment on above: Non- GFR Calc Gamma Globulins 0.9 g/dL 0.4-1.8 [facility] Miscellaneous Test See comment [facility] Comment on above: TEST RESULTS LIMITS Rubella Antibodies, IgM <20.0 AU/mL 0.0-19.9 Negative <20.0 Equivocal 20.0 - 24.9 Positive >24.9 TESTING PERFORMED AT [facility]. ORIGINAL REPORT ON FILE IN LAB CONTAINS ADDITIONAL TEST SITE INFORMATION. Rubella IgG Antibody Reactive Nonreactive [facility] Comment on above: Antibody Results Int erpretation of Immune Status Non Reactive Presumed Non-Immune Equivocal Equivocal Reactive Presumed Immune Platelets bldOrdered By: Tiffanie Hunter on 04-09-2023 Platelets (Bld) [#/Vol] 239 10*3/uL 150-450 [facility] Protein Fractions Elph [Inte rp]Ordered By: Ki Hunter on 04-09-2023 Protein Fractions [Interp] Comment . [facility] Comment on above: Protein electrophore sis scan will follow via computer,mail, or sales account leader delivery. Serum Treponema species anti body detectionOrdered By: Ki Hunter on 04-09-2023 Treponema sp Ab Ql (S) Non-Reactive [facility] Serum Varicella zoster virus IgG antibody assay by immunoassay (units/volume)Ordered By: Ki Hunter on 04-09-2023 VZV IgG IA Qn (S) > 4000 index Immune >165 [facility] Comment on above: Negative <135 Equivo katya 135 - 165 Positive >165A positive result generally indicates exposure to thepathogen or administration of specific immunoglobulins,but it is not indication of active infection or stageof disease. Serum Varicella zoster virus IgM antibody assay by immunoassay (units/volume)Ordered By: Ki Hunter on 04-09-2023 VZV IgM IA Qn (S) < 0.91 index 0.00-0.90 [facility] Comment on above: Negative <0.91 Borde rline 0.91 - 1.09 Positive >1.09 Serum albumin to globulin ra reji by protein electrophoresisOrdered By: Ki Hunter on 04-09-2023 Albumin/Globulin Elph [Mass ratio] 1.2 0.7-1.7 [facility] Serum globulin measurement ( mass/volume)Ordered By: Ki Hunter on 04-09-2023 Globulin (S) [Mass/Vol] 3.0 g/dL 2.2-3.9 [facility] Serum measles virus IgG anti body assay by immunoassay (units/volume)Ordered By: Ki Hunter on 04-09-2023 MeV IgG IA Qn (S) > 300.0 AU/mL Immune >16.4 [facility] Comment on above: Negative <13.5 Equiv ocal 13.5 - 16.4 Positive >16.4Presence of antibodies to Rubeola is presumptive evidenceof immunity except when acute infection is suspected. MeV IgG IA Qn (S) See comment [facility] Comment on above: TEST RESULTS LIMITSR ubella Antibodies, IgM <20.0 AU/mL 0.0-19.9 Negative <20.0 Equivocal 20.0 - 24.9 Positive >24.9 TESTING PERFORMED AT [facility]. ORIGINAL REPORT ON FILE IN LAB CONTAINS ADDITIONAL TEST SITE INFORMATION. Serum or plasma C reactive p rotein measurement (mass/volume)Ordered By: Ki Hunter on 04-09-2023 CRP [Mass/Vol] mg/L 0.0-3.0 [facility] Comment on above: C-Reactive Protein ( CRP) provides useful information for thediagnosis, therapy and monitoring of inflammatory processesand associated diseases. For the evaluation of Relative Riskfor Cardiovascular Disease, a High Sensitivity CRP (HSCRP)should be ordered. Serum or plasma albumin oz urement (mass/volume)Ordered By: Ki Hunter on 04-09-2023 Albumin [Mass/Vol] 3.6 g/dL 2.9-4.4 [facility] Serum or plasma albumin/glob ulin mass ratioOrdered By: Ki Hunter on 04-09-2023 Albumin/Globulin [Mass ratio] 1.0 {ratio} 0.9-2.4 [facility] Serum or plasma beta globuli n measurement by electrophoresis (mass/volume)Ordered By: Ki Hunter on 04-09-2023 Beta globulin Elph [Mass/Vol] 1.1 g/dL 0.7-1.3 [facility] Serum or plasma calcium oz urement (mass/volume)Ordered By: Ki Hunter on 04-09-2023 Calcium [Mass/Vol] 8.9 mg/dL 8.5-10.1 [facility] Serum or plasma creatinine m easurement (mass/volume)Ordered By: Ki Hunter on 04-09-2023 Creatinine [Mass/Vol] 0.87 mg/dL 0.70-1.30 [facility] Comment on above: The validity of the calculated GFR & GFRAA in patients over 70 years has not been determined. Clinical correlation is essential. Serum or plasma urea nitroge n measurement (mass/volume)Ordered By: Ki Hunter on 04-09-2023 Urea nitrogen [Mass/Vol] 17 mg/dL 7-18 [facility] Thin prep Papanicolaou smear with manual screeningOrdered By: Ki Hunter on 04-09-2023 Thin prep Papanicolaou smear with manual screening 20 U/L 15-37 [facility] Thin prep Papanicolaou smear with manual screening 4 5-15 [facility] Thin prep Papanicolaou smear with manual screening See comment [facility] Comment on above: Result: Not Observed Thin prep Papanicolaou smear with manual screening Negative Negative [facility] Comment on above: Lyme antibodies not detected. Reflex testing is notindicated.No laboratory evidence of infection with B. burgdorferi(Lyme disease). Negative results may occur in patientsrecently infected (less than or equal to 14 days) with B.burgdorferi. If recent infection is suspected, repeattesting on a new sample collected in 7 to 14 days isrecommended.Performed at: [address] [id number] Director: Giles Bhakta PhD, Phone: [phone] Total protein bloodOrdered B y: Ki Hunter on 04-09-2023 Protein [Mass/Vol] 6.6 g/dL 6.0-8.5 [facility] Absolute lymphocyte counton 08-24-2022 Lymphocytes Auto (Unsp spec) [#/Vol] 1.49 10*3/uL 0.83-4.51 [facility] Work Phone: Basophil percentageon 2021 Basophils/100 WBC (Bld) 0.7 % 0-1 [facility] Work Phone: Bilirubin [Mass/Vol] 0.60 mg/dL 0.20-1.00 [facility] Work Phone: Comment on above: For patients on eltr ombopag therapy, use of Dimension [place] TBIL is not recommended. Chloride [Moles/Vol] 105 mmol/L 98-107 [facility] Work Phone: Cholesterol [Mass/Vol] 165 mg/dL <200 [facility] Work Phone: Comment on above: <200 mg/dL Desirable 200-240 mg/dL Borderline >240 mg/dL High Risk Eosinophils/100 WBC (Bld) 3.7 % 0-5 [facility] Work Phone: Glucose [Mass/Vol] 100 mg/dL 74-106 [facility] Work Phone: Comment on above: Fasting Glucose resu lt from 100 to 125 mg/dL suggests IMPAIRED HOMEOSTASIS per A.D.A. criteria. Neutrophils (Bld) [#/Vol] 2.4 10*3/uL 2.0-7.7 [facility] Work Phone: Neutrophils/100 WBC (Bld) 51.8 % 47-70 [facility] Work Phone: Potassium [Moles/Vol] 4.1 mmol/L 3.5-5.1 [facility] Work Phone: Protein [Mass/Vol] 7.3 g/dL 6.4-8.2 [facility] Work Phone: Sodium [Moles/Vol] 139 mmol/L 136-145 [facility] Work Phone: Triglyceride [Mass/Vol] 128 mg/dL <199 [facility] Work Phone: Comment on above: The drugs N-Acetylcy steine and Metamizole may falsely depress this assay.Serum Triglycerides Reference Interval Normal <150 mg/dL Borderline high 150 - 199 mg/dL High 200 - 499 mg/dL Very High > or = 500 mg/dL WBC (Bld) [#/Vol] 4.6 10*3/uL 4.4-11.0 [facility] Work Phone: Blood erythrocytes count (nu mber/volume)on 08-24-2022 RBC (Bld) [#/Vol] 4.67 10*6/uL 4.6-6.2 [facility] Work Phone: Blood hemoglobin measurement (mass/volume)on 08-24-2022 Hemoglobin (Bld) [Mass/Vol] 14.4 g/dL 13.0-16.5 [facility] Work Phone: Blood lymphocytes/100 leukoc yteson 08-24-2022 Lymphocytes/100 WBC (Bld) 32.5 % 19-41 [facility] Work Phone: Blood monocytes/100 leukocyt eson 08-24-2022 Monocytes/100 WBC (Bld) 11.1 % 0-10 [facility] Work Phone: Blood platelet mean volumeon 08-24-2022 Platelet mean volume (Bld) [Entitic vol] 9.6 fL 6.2-12.0 [facility] Work Phone: Determination of erythrocyte mean corpuscular volume (MCV)on 08-24-2022 MCV (RBC) [Entitic vol] 90.1 fL 80-94 [facility] Work Phone: Hematocrit Auto (Bld) [Volum e fraction]on 08-24-2022 Hematocrit (Bld) [Volume fraction] 42.1 % 40-54 [facility] Work Phone: Laboratory - Chemistry and C hemistry - challengeon 08-24-2022 ALP [Catalytic activity/Vol] 79 U/L 45-117 [facility] Work Phone: ALT [Catalytic activity/Vol] 23 U/L 16-61 [facility] Work Phone: CO2 [Moles/Vol] 30.0 mmol/L 21.0-32.0 [facility] Work Phone: Globulin (S) [Mass/Vol] 3.5 g/dL 2.2-4.2 [facility] Work Phone: Urea nitrogen/Creatinine [Mass ratio] 16.1 mg/mg 10-20 [facility] Work Phone: Laboratory - Hematology and Cell countson 08-24-2022 Erythrocyte distribution width (RBC) [Entitic vol] 42.8 fL 35.1-43.9 [facility] Work Phone: Erythrocyte distribution width (RBC) [Ratio] 13.0 % 11.6-14.6 [facility] Work Phone: Immature granulocytes/100 WBC (Bld) 0.200 % 0.0-0.9 [facility] Work Phone: Comment on above: IG% - Immature Granu locytes (promyelocytes, myelocytes and metamyelocytes) > 1% indicates that a LEFT SHIFT is Present. MCH (RBC) [Entitic mass] 30.8 pg 27.0-32.0 [facility] Work Phone: Nucleated RBC/100 WBC (Bld) [Ratio] 0 % 0-5 [facility] Work Phone: MCHC Auto (RBC) [Mass/Vol]on 08-24-2022 MCHC (RBC) [Mass/Vol] 34.2 g/dL 32-36 [facility] Work Phone: No Panel Informationon 08-24 Estimated GFR (MDRD) Amer 111 mL/min >60 [facility] Work Phone: Comment on above: GFR Calc Estimated GFR (MDRD) Non-Af Amer 92 mL/min >60 [facility] Work Phone: Comment on above: Non- GFR Calc Prostate Specific Antigen Screen 0.32 ng/mL 0.00-4.00 [facility] Work Phone: Comment on above: This test was perfor med using the TPSA assay method for [employer] chemistry system. Values obtained with differentassay methods cannot be used interchangably.When changing PSA assays in the course of monitoring apatient, additional sequential testing should be carriedout to confirm baseline values. Platelets bldon 08-24-2022 Platelets (Bld) [#/Vol] 265 10*3/uL 150-450 [facility] Work Phone: Serum or plasma albumin oz urement (mass/volume)on 08-24-2022 Albumin [Mass/Vol] 3.8 g/dL 3.2-5.0 [facility] Work Phone: Serum or plasma albumin/glob ulin mass ratioon 08-24-2022 Albumin/Globulin [Mass ratio] 1.1 {ratio} 0.9-2.4 [facility] Work Phone: Serum or plasma calcium oz urement (mass/volume)on 08-24-2022 Calcium [Mass/Vol] 9.0 mg/dL 8.5-10.1 [facility] Work Phone: Serum or plasma cholesterol in HDL measurement (mass/volume)on 08-24-2022 Cholesterol in HDL [Mass/Vol] 41 mg/dL >40 [facility] Work Phone: Comment on above: The drugs N-Acetylcy steine and Metamizole may falsely depress this assay. Reference Range HDL <40 mg/dL Low HDL Cholesterol HDL >or= 60 mg/dL High HDL Cholesterol Serum or plasma cholesterol in VLDL measurement (mass/volume)on 08-24-2022 Cholesterol in VLDL [Mass/Vol] 26 mg/dL 5-40 [facility] Work Phone: Serum or plasma creatinine m easurement (mass/volume)on 08-24-2022 Creatinine [Mass/Vol] 0.87 mg/dL 0.70-1.30 [facility] Work Phone: Comment on above: The validity of the calculated GFR & GFRAA in patients over 70 years has not been determined. Clinical correlation is essential. Serum or plasma low density lipoprotein (LDL) cholesterol measurement (mass/volume)on 08-24-2022 Cholesterol in LDL [Mass/Vol] 98 mg/dL 0-130 [facility] Work Phone: Serum or plasma urea nitroge n measurement (mass/volume)on 08-24-2022 Urea nitrogen [Mass/Vol] 14 mg/dL 7-18 [facility] Work Phone: Thin prep Papanicolaou smear with manual screeningon 08-24-2022 Thin prep Papanicolaou smear with manual screening 17 U/L 15-37 [facility] Work Phone: Thin prep Papanicolaou smear with manual screening 4 5-15 [facility] Work Phone: Basophil percentageon 2020 Chloride [Moles/Vol] 104 mmol/L 98-107 [facility] Work Phone: Cholesterol [Mass/Vol] 174 mg/dL <200 [facility] Work Phone: Comment on above: <200 mg/dL Desirable 200-240 mg/dL Borderline >240 mg/dL High Risk Glucose [Mass/Vol] 93 mg/dL 74-106 [facility] Work Phone: Comment on above: Please note revised GLUCOSE reference range effective 2017. Potassium [Moles/Vol] 4.3 mmol/L 3.5-5.1 [facility] Work Phone: Sodium [Moles/Vol] 139 mmol/L 136-145 [facility] Work Phone: Triglyceride [Mass/Vol] 96 mg/dL [facility] Work Phone: Comment on above: The drugs N-Acetylcy steine and Metamizole may falsely depress this assay.Serum Triglycerides Reference Interval Normal <150 mg/dL Borderline high 150 - 199 mg/dL High 200 - 499 mg/dL Very High > or = 500 mg/dL WBC (Bld) [#/Vol] 4.9 10*3/uL 4.4-11.0 [facility] Work Phone: Blood erythrocytes count (nu mber/volume)on 08-15-2021 RBC (Bld) [#/Vol] 4.93 10*6/uL 4.6-6.2 [facility] Work Phone: Blood hemoglobin measurement (mass/volume)on 08-15-2021 Hemoglobin (Bld) [Mass/Vol] 14.7 g/dL 13.0-16.5 [facility] Work Phone: Blood platelet mean volumeon 08-15-2021 Platelet mean volume (Bld) [Entitic vol] 9.8 fL 6.2-12.0 [facility] Work Phone: Determination of erythrocyte mean corpuscular volume (MCV)on 08-15-2021 MCV (RBC) [Entitic vol] 88.6 fL 80-94 [facility] Work Phone: Hematocrit Auto (Bld) [Volum e fraction]on 08-15-2021 Hematocrit (Bld) [Volume fraction] 43.7 % 40-54 [facility] Work Phone: Laboratory - Chemistry and C hemistry - challengeon 08-15-2021 CO2 [Moles/Vol] 30.0 mmol/L 21.0-32.0 [facility] Work Phone: Urea nitrogen/Creatinine [Mass ratio] 18.2 mg/mg 10-20 [facility] Work Phone: Laboratory - Hematology and Cell countson 08-15-2021 Erythrocyte distribution width (RBC) [Entitic vol] 42.6 fL 35.1-43.9 [facility] Work Phone: Erythrocyte distribution width (RBC) [Ratio] 13.1 % 11.6-14.6 [facility] Work Phone: MCH (RBC) [Entitic mass] 29.8 pg 27.0-32.0 [facility] Work Phone: MCHC Auto (RBC) [Mass/Vol]on 08-15-2021 MCHC (RBC) [Mass/Vol] 33.6 g/dL 32-36 [facility] Work Phone: No Panel Informationon 08-15 Estimated GFR (MDRD) Amer 110 mL/min >60 [facility] Work Phone: Comment on above: GFR Calc Estimated GFR (MDRD) Non-Af Amer 91 mL/min >60 [facility] Work Phone: Comment on above: Non- GFR Calc Platelets bldon 08-15-2021 Platelets (Bld) [#/Vol] 258 10*3/uL 150-450 [facility] Work Phone: Serum or plasma calcium oz urement (mass/volume)on 08-15-2021 Calcium [Mass/Vol] 8.9 mg/dL 8.5-10.1 [facility] Work Phone: Serum or plasma cholesterol in HDL measurement (mass/volume)on 08-15-2021 Cholesterol in HDL [Mass/Vol] 42 mg/dL [facility] Work Phone: Comment on above: The drugs N-Acetylcy steine and Metamizole may falsely depress this assay. Reference Range HDL <40 mg/dL Low HDL Cholesterol HDL >or= 60 mg/dL High HDL Cholesterol Serum or plasma cholesterol in VLDL measurement (mass/volume)on 08-15-2021 Cholesterol in VLDL [Mass/Vol] 19 mg/dL 5-40 [facility] Work Phone: Serum or plasma creatinine m easurement (mass/volume)on 08-15-2021 Creatinine [Mass/Vol] 0.88 mg/dL 0.70-1.30 [facility] Work Phone: Comment on above: The validity of the calculated GFR & GFRAA in patients over 70 years has not been determined. Clinical correlation is essential. Serum or plasma low density lipoprotein (LDL) cholesterol measurement (mass/volume)on 08-15-2021 Cholesterol in LDL [Mass/Vol] 113 mg/dL 0-130 [facility] Work Phone: Serum or plasma urea nitroge n measurement (mass/volume)on 08-15-2021 Urea nitrogen [Mass/Vol] 16 mg/dL 7-18 [facility] Work Phone: Thin prep Papanicolaou smear with manual screeningon 08-15-2021 Thin prep Papanicolaou smear with manual screening 5 5-15 [facility] Work Phone: Office Visiton 07-12-2017 Documentation of current medications (procedure) Done Invalid Interpretation Code [facility] Work Phone: Tobacco use CPHS Current every day smoker Invalid Interpretation Code [facility] Work Phone: Nurse Visit: suture removalo n 06-28-2017 Fall risk assessment No Invalid Interpretation Code [facility] Work Phone: Office Visit: UC: cut L thum b on sheet metalon 06-18-2017 Documentation of current medications (procedure) Done Invalid Interpretation Code [facility] Work Phone: Fall risk assessment No Invalid Interpretation Code [facility] Work Phone: Protein mass conc Smoking cessation education (procedure) Invalid Interpretation Code [facility] Work Phone: Protein mass conc Done Invalid Interpretation Code [facility] Work Phone: Smoking cessation education (procedure) Smoking cessation education (procedure) Invalid Interpretation Code [facility] Work Phone: Tobacco smoking status NHIS Current every day smoker Invalid Interpretation Code [facility] Work Phone: Tobacco use CPHS Current every day smoker Invalid Interpretation Code [facility] Work Phone: Office Visiton 06-07-2017 Documentation of current medications (procedure) Done Invalid Interpretation Code [facility] Work Phone: Smoking cessation education (procedure) yes Invalid Interpretation Code [facility] Work Phone: Tobacco use CPHS Current every day smoker Invalid Interpretation Code [facility] Work Phone: Office Visiton 04-05-2017 Documentation of current medications (procedure) Done Invalid Interpretation Code [facility] Work Phone: Tobacco use CPHS Current every day smoker Invalid Interpretation Code [facility] Work Phone: Office Visiton 10-14-2016 Documentation of current medications (procedure) Done Invalid Interpretation Code [facility] Work Phone: Protein mass conc Done [facility] Work Phone: Office Visiton 10-07-2016 Tobacco smoking status NHIS Current every day smoker [facility] Work Phone: Tobacco use CPHS Current every day smoker Invalid Interpretation Code [facility] Work Phone: Lab Report: Basic Metabolic Profile (BMP)on 10-02-2016 Anion gap 5 mmol/L Invalid Interpretation Code 5-15 [facility] Work Phone: Anion gap 4 molar conc 5 Invalid Interpretation Code 5-15 [facility] Work Phone: Anion gap molar conc 5 mmol/L 5-15 [facility] Work Phone: BUN/Creatinine Ratio 21.0 RATIO High 10-20 [facility] Work Phone: Calcium 9.1 mg/dL Invalid Interpretation Code 8.5-10.1 [facility] Work Phone: Chloride 101 mmol/L Invalid Interpretation Code 98-107 [facility] Work Phone: CO2 29.0 mmol/L Invalid Interpretation Code 21.0-32.0 [facility] Work Phone: CO2 ppres (BldV) 29.0 mmol/L Invalid Interpretation Code 21.0-32.0 [facility] Work Phone: Creatinine 0.86 mg/dL Invalid Interpretation Code 0.70-1.30 [facility] Work Phone: eGFR (non-black) 114 mL/min/{1.73_m2} Invalid Interpretation Code >60 [facility] Work Phone: eGFR (non-black) 94 mL/min/{1.73_m2} Invalid Interpretation Code >60 [facility] Work Phone: EST GFR - AA 114 mL/min Invalid Interpretation Code >60 [facility] Work Phone: Glucose 91 mg/dL Invalid Interpretation Code 70-110 [facility] Work Phone: Glucose mass conc 91 mg/dL Invalid Interpretation Code 70-110 [facility] Work Phone: Potassium 4.4 mmol/L Invalid Interpretation Code 3.5-5.1 [facility] Work Phone: Sodium 135 mmol/L Low 136-145 [facility] Work Phone: Urea nitrogen 18 mg/dL Invalid Interpretation Code 7-18 [facility] Work Phone: Lab Report: CBC W/Diff, Auto matedon 10-02-2016 Absolute Neut 5.2 X10 3/UL Invalid Interpretation Code 2.0-7.7 [facility] Work Phone: Basophils/100 leukocytes 0.3 % Invalid Interpretation Code 0-1 [facility] Work Phone: Basophils/100 WBC (Bld) 0.3 % 0-1 [facility] Work Phone: Eosinophils/100 leukocytes 0.8 % Invalid Interpretation Code 0-5 [facility] Work Phone: Eosinophils/100 WBC (Bld) 0.8 % 0-5 [facility] Work Phone: Erythrocyte distribution width Auto Ratio (RBC) 42.1 fL Invalid Interpretation Code 35.1-43.9 [facility] Work Phone: Erythrocyte distribution width Ratio (RBC) 13.1 % 11.6-14.6 [facility] Work Phone: Erythrocyte distribution width Ratio (RBC) 42.1 fL 35.1-43.9 [facility] Work Phone: Erythrocytes (RBC) 4.33 10*6/uL Low 4.6-6.2 [facility] Work Phone: Hematocrit (HCT) 38.6 % Low 40-54 [facility] Work Phone: Hematocrit Volume Fraction (Bld) 38.6 % Low 40-54 [facility] Work Phone: Hemoglobin (HGB) 13.0 g/dL Invalid Interpretation Code 13.0-16.5 [facility] Work Phone: Immature granulocytes #/vol (Bld) 0.100 % Invalid Interpretation Code 0.0-0.9 [facility] Work Phone: immature granulocytes, percentage of total cells, blood 0.100 % Invalid Interpretation Code 0.0-0.9 [facility] Work Phone: Immature granulocytes/100 WBC (Bld) 0.100 % Invalid Interpretation Code 0.0-0.9 [facility] Work Phone: Lymphocytes 1.24 X10 3/UL Invalid Interpretation Code 0.83-4.51 [facility] Work Phone: Lymphocytes #/vol (Bld) 1.24 X10 3/UL 0.83-4.51 [facility] Work Phone: Lymphocytes/100 leukocytes 17.4 % Low 19-41 [facility] Work Phone: Lymphocytes/100 WBC (Bld) 17.4 % Low 19-41 [facility] Work Phone: MCH 30.0 pg Invalid Interpretation Code 27.0-32.0 [facility] Work Phone: MCH Entitic mass (RBC) 30.0 pg 27.0-32.0 [facility] Work Phone: MCHC 33.7 G/GL Invalid Interpretation Code 32-36 [facility] Work Phone: MCHC mass conc (RBC) 33.7 G/GL 32-36 [facility] Work Phone: MCV 89.1 fL Invalid Interpretation Code 80-94 [facility] Work Phone: MCV Entitic volume (RBC) 89.1 fL 80-94 [facility] Work Phone: Monocytes/100 leukocytes 7.9 % Invalid Interpretation Code 0-10 [facility] Work Phone: Monocytes/100 WBC (Bld) 7.9 % 0-10 [facility] Work Phone: neutrophil count, blood 5.2 X10 3/UL Invalid Interpretation Code 2.0-7.7 [facility] Work Phone: Neutrophils #/vol (Bld) 5.2 X10 3/UL 2.0-7.7 [facility] Work Phone: Neutrophils Auto #/vol (Bld) 5.2 X10 3/UL Invalid Interpretation Code 2.0-7.7 [facility] Work Phone: Neutrophils/100 leukocytes 73.5 % High 47-70 [facility] Work Phone: Neutrophils/100 WBC (Bld) 73.5 % High 47-70 [facility] Work Phone: Platelet mean volume Entitic volume (Bld) 9.8 fL 6.2-12.0 [facility] Work Phone: Platelets 459 10*3/mm3 High 150-450 [facility] Work Phone: Platelets #/vol (Bld) 459 10*3/mm3 High 150-450 [facility] Work Phone: PMV by Anna Marie 9.8 fL Invalid Interpretation Code 6.2-12.0 [facility] Work Phone: RBC #/vol (Bld) 4.33 10*6/uL Low 4.6-6.2 [facility] Work Phone: RDW SD 42.1 fL Invalid Interpretation Code 35.1-43.9 [facility] Work Phone: RDW-CA 13.1 % Invalid Interpretation Code 11.6-14.6 [facility] Work Phone: red blood cell distribution width, size density 42.1 fL Invalid Interpretation Code 35.1-43.9 [facility] Work Phone: WBC #/vol (Bld) 7.1 10*3/uL 4.4-11.0 [facility] Work Phone: WBC (Leukocytes) 7.1 10*3/uL Invalid Interpretation Code 4.4-11.0 [facility] Work Phone: Lab Report: CRPon 10-02-2016 C reactive protein (CRP) 1.24 mg/dL High Uni ts converted. See lab report for original value. [facility] Work Phone: Replaced Document: (P) Ara rocyte Sed Rateon 10-02-2016 Erythrocyte sedimentation rate 25 mm/h High 0-20 [facility] Work Phone: Vital Signs Date Time Vital Sign Value Performing Clinician Facility 07-17-2023 08:56-0400 Body height 172.72 cm Dr. Ki Hunter Work Phone: [facility] 07-17-2023 08:56-0400 Body mass index (BMI) [Ratio] 26.6 kg/m2 Dr. Ki Hunter Work Phone: [facility] 07-17-2023 08:56-0400 Body weight 79.[address] Ki Hunter Work Phone: [facility] 07-17-2023 08:56-0400 Diastolic blood pressure 90 mm[Hg] Dr. Ki Hunter Work Phone: [facility] 07-17-2023 08:56-0400 Heart rate 83 /min Dr. Ki Hunter Work Phone: [facility] 07-17-2023 08:56-0400 Respiratory rate 16 /min Dr. Ki Hunter Work Phone: [facility] 07-17-2023 08:56-0400 SaO2% (BldA) [Mass fraction] 94 % Dr. Ki Hunter Work Phone: [facility] 07-17-2023 08:56-0400 Systolic blood pressure 161 mm[Hg] Dr. Ki Hunter Work Phone: [facility] 11-17-2021 08:56-0500 Body height 175.26 cm MD Ki Hunter [facility] Work Phone: 11-17-2021 08:56-0500 Body mass index (BMI) [Ratio] 25.9 kg/m2 MD Ki Hunter [facility] Work Phone: 11-17-2021 08:56-0500 Body weight 79.83 kg MD Ki Hunter [facility] Work Phone: 06-28-2017 06:58-0400 BMI (Body Mass Index) 26.38 kg/m2 Mili Jim LPN [facility] Work Phone: 06-28-2017 06:58-0400 Body Temperature 98 [degF] Mili Jim LPN [facility] Work Phone: 06-28-2017 06:58-0400 BP Diastolic 82 mm[Hg] Mili Jim LPN [facility] Work Phone: 06-28-2017 06:58-0400 BP Systolic 120 mm[Hg] Mili Jim LPN [facility] Work Phone: 06-28-2017 06:58-0400 Height 178.44 cm Mili Jim LPN [facility] Work Phone: 06-28-2017 06:58-0400 Pulse (Heart Rate) 85 /min Mili Jim LPN [facility] Work Phone: 06-28-2017 06:58-0400 Respiratory Rate 14 /min Mili Jim LPN [facility] Work Phone: 06-28-2017 06:58-0400 Weight 84.01 kg Mili Jim LPN [facility] Work Phone: 06-18-2017 14:19-0400 BMI (Body Mass Index) 25.67 kg/m2 Mili Jim LPN [facility] Work Phone: 06-18-2017 14:19-0400 Body Temperature 98.8 [degF] Mili Jim LPN [facility] Work Phone: 06-18-2017 14:19-0400 BP Diastolic 76 mm[Hg] Mili Jim LPN [facility] Work Phone: 06-18-2017 14:19-0400 BP Systolic 140 mm[Hg] Mili Jim LPN [facility] Work Phone: 06-18-2017 14:19-0400 Height 178.44 cm Mili Jim LPN [facility] Work Phone: 06-18-2017 14:19-0400 Pulse (Heart Rate) 91 /min Mili Jim LPN [facility] Work Phone: 06-18-2017 14:19-0400 Respiratory Rate 13 /min Mili Jim LPN [facility] Work Phone: 06-18-2017 14:19-0400 Weight 81.74 kg Mili Jim LPN [facility] Work Phone: 10-02-2016 14:47-0500 BMI (Body Mass Index) 26.78 kg/m2 [facility] Work Phone: 10-02-2016 14:47-0500 Weight 85.28 kg [facility] Work Phone: 06-01-2011 16:33-0400 Body Temperature 96.8 [degF] [facility] Work Phone: 06-01-2011 16:33-0400 BP Diastolic 84 mm[Hg] [facility] Work Phone: 06-01-2011 16:33-0400 BP Systolic 122 mm[Hg] [facility] Work Phone: 06-01-2011 16:33-0400 Height 178.44 cm [facility] Work Phone: 06-01-2011 16:33-0400 Pulse (Heart Rate) 66 /min [facility] Work Phone: 06-01-2011 16:33-0400 Respiratory Rate 16 /min Eligio Wallace [facility] Work Phone: Encounters Encounter Date Encounter Type Care Provider Facility Start: 02-12-2025 End: 02-12-2025 ambulatory Ki Hunter Facility:[facility] Start: 02-12-2025 End: 02-12-[address] Anabela Morfin MD -Radiology [facility] Work Phone: Start: 02-12-2025 End: 02-12-2025 ambulatory [facility] Facility:[facility] Start: 02-06-2025 End: 02-06-[address] Ki Hunter MD Work Phone: [facility] Work Phone: Start: 02-06-2025 End: 02-06-[address] Ki Hunter MD -Laboratory [place] Work Phone: Start: 02-06-2025 End: 02-06-2025 ambulatory [facility] Facility:[facility] Start: 08-07-2024 End: 08-07-2024 ambulatory [facility] Facility:[facility] Start: 07-05-2024 End: 07-05-2024 ambulatory [facility] [place] Facility:[facility] Start: 04-24-2024 End: 04-24-2024 ambulatory [facility] Facility:[facility] Start: 04-08-2024 End: 04-08-2024 ambulatory Heath PIKE Facility:[facility] Start: 09-15-2023 End: 09-15-[address] Ki Hunter Work Phone: [facility] Work Phone: Start: 09-15-2023 End: 09-15-[address] Ki Hunter Work Phone: [facility]-Ultrasound, [facility] Work Phone: Start: 07-17-2023 End: 07-17-[address] Ki Hunter Work Phone: [facility] Work Phone: Start: 04-09-2023 End: 04-09-2023 ambulatory [facility] Work Phone: Start: 04-09-2023 End: 04-09-2023 Patient encounter procedure [facility]-Laboratory, [place] Work Phone: Start: 04-02-2023 End: 04-02-2023 ambulatory [facility] Work Phone: Start: 04-02-2023 End: 04-02-2023 Discharged Recurring [facility]-Physical Therapy Work Phone: Start: 04-02-2023 Registered Recurring [facility]-Physical Therapy Work Phone: Start: 08-24-2022 End: 08-24-[address] Ki Hunter Work Phone: [facility] Work Phone: Start: 08-24-2022 End: 08-24-[address] Ki Hunter Work Phone: [facility]-Laboratory Start: 08-04-2022 Non-patient / Non-visit Dr. Omi Hunter Work Phone: [facility] Start: 08-04-[address] Ki madison Work Phone: [facility]-Cardiovascular Services Start: 01-22-2022 Non-patient / Non-visit MD iK shepard [facility] Start: 01-22-2022 End: 01-22-2022 Patient encounter procedure MD Ki Hunter [facility]Cardi[facility] Services Start: 01-14-2022 End: 01-14-2022 Patient encounter procedure MD Ki Hunter [facility] Start: 12-01-2021 End: 12-01-2021 Patient encounter procedure MD Ki Hunter [facility] Start: 11-26-2021 End: 11-26-2021 Patient encounter procedure MD Ki Hunter [facility]-MRI - [facility] Start: 11-17-2021 End: 11-17-2021 Patient encounter procedure MD Ki Hunter [facility] [facility] Start: 10-08-2021 End: 10-08-2021 Patient encounter procedure MD Ki Hunter [facility]-Pulmonary Services/Neurology Start: 08-15-2021 Patient encounter procedure MD Ki Hunter [facility]-Laboratory, [place] Procedures Date Procedure Procedure Detail Performing Clinician Start: 02-12-2025 X-ray of knee, four or more views Dr. Ki Hunter MD Work Phone: Start: 09-15-[address] Ki Hunter Work Phone: Start: 01-14-2022 Plain x-ray of pelvis and lower extremity MD Ki Hunter Start: 11-26-2021 MRI of lumbar spine MD Ki Hunter Start: 11-17-2021 X-ray of lumbar spine, two or three views MD Ki Hunter Start: 06-18-2017 End: 06-18-2017 Smpl repair scalp/neck/ax/genit/trunk 2.6-7.5cm Dru PIKE Work Phone: Start: 10-14-2016 End: 10-23-2016 Arthrocentesis aspir&/inj small jt/bursa w/o us Eligio Wallace Work Phone: Start: 10-14-2016 End: 10-23-2016 Drain/inject, joint/bursa Eligio Wallace Work Phone: Start: 10-02-2016 End: 10-05-2016 *BMP Eligio Wallace Work Phone: Start: 10-02-2016 End: 10-05-2016 *CBC with Differential Eligio Wallace Work Phone: Start: 10-02-2016 End: 10-05-2016 C reactive protein [Mass/volume] in Serum or Plasma by High sensitivity method Eligio Wallace Work Phone: Start: 10-02-2016 End: 10-05-2016 Erythrocyte sedimentation rate Eligio Wallace Work Phone: Start: 10-02-2016 End: 10-05-2016 *BMP Eligio Wallace Work Phone: Start: 10-02-2016 End: 10-05-2016 *CBC with Differential Eligio Wallace Work Phone: Start: 10-02-2016 End: 10-05-2016 C reactive protein (hsCRP) Eligio Morales Rodolfo walsh Work Phone: Start: 10-02-2016 End: 10-05-2016 Erythrocyte sedimentation rate Eligio Walalce Work Phone: Start: 06-01-2011 Removal of suture ENCOUNTER FOR REMOVAL OF SUTURES Mili Jim LPN Start: 06-01-2011 Removal of suture ENCOUNTER FOR REMOVAL OF SUTURES Chen Guzman Plan of Treatment Date Care Activity Detail Author Start: 12-01-2021 Patient referral [facility] Work Phone: Start: 07-14-2017 End: 07-14-2017 Occupational Therapy General Occupational Therapy [facility], [address] [place] [address], [id number] [place] [facility] Work Phone: Start: 07-12-2017 End: 07-12-2017 Appointment Appointment [facility] Work Phone: Start: 06-29-2017 End: 06-29-2017 Appointment Appointment [facility] Work Phone: Start: 06-28-2017 End: 06-28-2017 Appointment Appointment [facility] Work Phone: Start: 06-18-2017 End: 06-18-2017 Appointment Appointment [facility] Work Phone: Start: 06-07-2017 End: 06-07-2017 Appointment Appointment [facility] Work Phone: Start: 04-05-2017 End: 04-05-2017 Appointment Appointment [facility] Work Phone: Start: 10-02-2016 End: 10-05-2016 *BMP *BMP [facility] Work Phone: Start: 10-02-2016 End: 10-05-2016 *CBC with Differential *CBC with Differential [facility] Work Phone: Start: 10-02-2016 End: 10-05-2016 C reactive protein (hsCRP) *CRP - C-Reative Protein [facility] Work Phone: Start: 10-02-2016 End: 10-05-2016 Erythrocyte sedimentation rate *Sedimentation Rate (ESR) [facility] Work Phone: Start: 10-02-2016 End: 10-05-2016 *BMP *BMP [facility] Work Phone: Start: 10-02-2016 End: 10-05-2016 *CBC with Differential *CBC with Differential [facility] Work Phone: Start: 10-02-2016 End: 10-05-2016 C reactive protein (hsCRP) *CRP - C-Reative Protein [facility] Work Phone: Start: 10-02-2016 End: 10-05-2016 Erythrocyte sedimentation rate *Sedimentation Rate (ESR) [facility] Work Phone: Patient Education LACERATION [facility] Work Phone: Patient referral [facility] Work Phone: Immunizations Immunization Date Immunization Notes Care Provider Valentin erickson 02-02-2022 tetanus toxoid, redu calvin diphtheria toxoid, and acellular pertussis vaccine, adsorbed Dr. Ki Hunter Work Phone: [facility] Payers Date Payer Category Payer Self-pay [id number] 2013 Medicare [id number] 2013 Unknown [id number] Unknown [id number] [id number] [id number] Unknown [id number] [id number] [id number] Unknown [id number] [id number] [id number] Unknown [id number] 2.16.8 [id number] Unknown [id number] 2.16.8 [id number] Unknown [id number] [id number] [id number] Unknown [id number] 2.16.8 [id number] Social History Date Type Detail Facility Start: 11-17-2021 End: 07-17-2023 Tobacco smoking status OHIS Unknown if ever smoked [facility] Start: 1950 Sex Assigned At Male [facility] Start: 07-17-2023 Tobacco smoking stat us OHIS Never smoked tobacco (finding) [facility] Radiology Diagnostic study note 02-12-2025 Note Date & Type Note Facility 02-12-2025 Radiology Diagnostic study note [facility] Imaging Services [address] [place] [address] [id number] Knee 4 or More Views MR#: [id number] Acct: [id number] Name: RANDY MONTEMAYOR Rep #: [id number] : [id number] M [id number] From: Tiffanie Stacy MD PCP: Dr. Ki Hunter MD Status: [facility] Study:Knee 4 or More Views Date of Exam: 02/12/25 Exam# [id number] Ordering Dr: Anabela Morfin MD PROCEDURE: KNEE 4 OR MORE VIEWS 02/12/2025 REASON FOR EXAM: RHEUMATOID ARTHRITIS WITHOUT RHEUMATOID FACTOR, MULTIPLE SITES TECHNIQUE: 4 view(s) of the right knee COMPARISON: 02/14/2024 FINDINGS: Bones: No significant osseous abnormalities. Joints: No narrowing. No calcified loose bodies. Effusion: Unremarkable. Soft tissues: Unremarkable. Other: Mild atherosclerotic calcific disease. RAD/Knee 4 or More Views IMPRESSION: NO EFFUSION ACUTE FRACTURE OR DISLOCATION. Reading Location: [facility] CC: Dr. Ki Hunter MD; Dr. 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 Ki Hunter MD Status: [facility] Study:Knee 4 or More Views Date of Exam: 02/12/25 Exam# [id number] Ordering Dr: Anabela Morfin MD PROCEDURE: KNEE 4 OR MORE VIEWS 02/12/2025 REASON FOR EXAM: RHEUMATOID ARTHRITIS WITHOUT RHEUMATOID FACTOR, MULTIPLE SITES TECHNIQUE: 4 view(s) of the left knee COMPARISON: None FINDINGS: Bones: Normal mineralization of the osseous structures and. There is no osteolytic or osteoblastic activity. There are no fractures or dislocations. Joints: Mild arthritic changes involving the medial femorotibial joint and inferior aspect of the patellofemoral joint. The lateral femorotibial joint appears to be well preserved. Effusion: There is no suprapatellar bursa effusion. Soft tissues: No appreciable soft tissue swelling is noted. RAD/Knee 4 or More Views IMPRESSION: Mild arthritic changes of the femorotibial joint and inferior aspect of the patellofemoral joint. Reading Location: [facility] CC: Dr. Ki Hunter MD; Dr. Anabela Morfin MD ~ Mop Machine Operator: Signed [facility] Evaluation note Note Date & Type Note Facility Evaluation note Diagnosis Onset Date Common peroneal nerve dysfunction acute Lumbosacral radiculopathy at L5 acute [facility] Work Phone: Evaluation note Note Date & Type Note Facility Evaluation note Diagnosis Onset Date Common peroneal nerve dysfunction acute Lumbosacral radiculopathy at L5 acute Lumbosacral radiculopathy at L5 acute Spinal stenosis at L4-L5 level acute Biceps femoris tendinitis ac [place] Common peroneal nerve dysfunction acute [facility] Work Phone: Evaluation note Note Date & Type Note Facility Evaluation note No assessment information availa ble [facility] Work Phone: Evaluation note Note Date & Type Note Facility Evaluation note Diagnosis Onset Date Acute sinus infection acute [facility] Work Phone: Reason for referral (narrative) Note Date & Type Note Facility Reason for referral (narrative) No reason for referral information available [facility] Work Phone: Chief Complaint and Reason for Visit Chief Complaint E ORDER Other hereditary and idiopathic neuropathies THORACIC SPINE xray LUMBOSACRAL RADICULOPATHY AT L5 Reason for Visit Common peroneal nerv e dysfunction Lumbosacral radiculopathy at L5 Chief Complaint Other hereditary and idiopathic neuropathies THORACIC SPINE xray LUMBOSACRAL RADICULOPATHY AT L5 Lumbar spine LUMBAR SPINE Hip pain Peripheral vascular disease, unspecified Reason for Visit Common peroneal nerv e dysfunction Lumbosacral radiculopathy at L5 Lumbosacral radiculopathy at L5 Spinal stenosis at L4-L5 level Biceps femoris tendinitis Common peroneal nerve dysfunction Chief Complaint SCREENING E ORDERS Chief Complaint BACK PN/RX HERE Chief Complaint COUGH, CONGESTION AAA Reason for Visit Acute sinus infectio n Chief Complaint Admit Date EORDER-2 ORDERS/ 2 DRS February 06, 2025 7: 47am Family History Relationship Condition Age at Onset Recorded Date/T porsche father Hypertension Unknown Myocardial infarction 79 uncle Myocardial infarction Unknown Advance Directives Advance Directive Response Recorded Date/ Time Advance Directives No September 19, 2016 9:35am Living Will Yes June 25 11:10am Power of Wet Trimmer Yes June 25, 2017 11:10am Advance Directive Response Recorded Date/ Time Advance Directives No September 19, 2016 8:35am Living Will Yes June 25 10:10am Power of Wet Trimmer Yes June 25, 2017 10:10am Advance Directive Response Recorded Date/ Time Advance Directives No September 19, 2016 9:35am Summary Purpose Additional Source Comments Goals (unrecognized section and content) Goals may be documented in a n alternate sectionGoals may be documented in an alternate sectionGoals may be documented in an alternate sectionGoals may be documented in an alternate sectionGoals may be documented in an alternate sectionGoals may be documented in an alternate sectionGoals may be documented in an alternate sectionGoals may be documented in an alternate section Care Teams (unrecognized sec tion and content) Team Status: Active Member Role Status Dates Dr. Ki Hunter MD Family Provider Active Dr. Ki Hunter MD Primary Care Provider Active Team Status: Active Member Role Status Dates Dr. Ki Hunter MD Primary Care Provider Active Dr. Refugio Torres MD Attending Provider, Referring Pr ovider Active Team Status: Inactive Member Role Status Dates Dr. Ki Hunter MD Primary Care Provide r, Attending Provider, Referring Provider Active Team Status: Inactive Member Role Status Dates Dr. Ki Hunter MD Primary Care Provider Active Dr. Refugio Torres MD Attending Provider, Referring Pr ovider Active Team Status: Inactive Member Role Status Dates Dr. Ki Hunter MD Primary Care Provider, Referring P rovider Active Lyla Parker PA, PA Attending Provider Active Team Status: Inactive Member Role Status Dates Dr. Ki Hunter MD Primary Care Provider Active Start: February 06, 2025 End: February 06, 2025 Dr. Ki Hunter MD Attending Provider Active St art: February 06, 2025 End: February 06, 2025 Dr. Ki Hunter MD Referring Provider Active St art: February 06, 2025 End: February 06, 2025 Dr. Anabela Morfin MD Other Provider Active St art: February 06, 2025 End: February 06, 2025 Team Status: Inactive Member Role Status Dates Dr. Ki Hunter MD Primary Care Provider Active Start: February 12, 2025 End: February 12, 2025 Dr. Anabela Morfin MD Attending Provider Active Start: February 12, 2025 End: February 12, 2025 Dr. Anabela Morfin MD Referring Provider Active Start: February 12, 2025 End: February 12, 2025 (unrecognized sect ion and content) No Status Records Found INFORMATION SOURCE (unrecogn ized section and content) DATE CREATED AUTHOR 02/17/2025 [facility] FOR RECORDS PERTAINING TO PATIENTS WHO ARE OR HAVE BEEN ENROLLED IN A CHEMICAL DEPENDENCY/SUBSTANCEABUSE PROGRAM, SOME INFORMATION MAY BE OMITTED. This clinical summary was aggregated from multiple sources. Caution should be exercised in using it in the provision of clinical care. This summary normalizes information from multiple sources, and as a consequence, information in this document may materially change the coding, format and clinical context of patient data. In addition, data may be omitted in some cases. CLINICAL DECISIONS SHOULD BE BASED ON THE PRIMARY CLINICAL RECORDS. [employer] [facility]. provides no warranty or guarantee of the accuracy or completeness of information in this document.
[2025-02-19 14:08] LABS: H. PYLORI STOOL AG Negative (Negative)
== END | disposition home or self-care (01) ==
LOC: LABSPEC 08:46
PROVIDERS: PCP Family Medicine; Referring Provider Family Medicine; Visit Provider Family Medicine
DX: R79.0 Abnormal level of blood mineral (principal)
CPT/HCPCS: 87338

== ENCOUNTER → 2025-04-11 | Outpatient (CLI) | payer MEDICARE, OTHER, SELFPAY ==
[2025-04-11 19:15] LABS: Synovial Fld Mononuclear WBC # 0.082 10^3/ul; Synovial Fld Mononuclear WBC % 86.3 %; Synovial Fld Polynuclear WBC # 0.013 10^3/uL; Synovial Fld Polynuclear WBC % 13.7 %; Total Cell Count Synovial Fld 0.1150 10^3/uL (0.000-0.000); WBC / Synovial Fluid 0.0950 10^3/uL (0.000-0.002)
[2025-04-11 20:43] LABS: Monocyte /Synovial Fluid 20 %; Other Cell /Synovial Fluid 60 %
[2025-04-11 20:45] LABS: AUTO B FLUID DILUENT BKGD CT WBC <0.1 RBC <0.01 (W<.1,R<.01); CRYSTALS, BODY FLUID NO CRYSTALS SEEN; Color / Synovial Fluid Yellow (Pale Yellow); Source / Synovial Fluid LEFT KNEE; Source- Body Fluid SYNOVIAL
[2025-04-11 20:46] LABS: Appearance /Synovial Fluid Sl hazy (CLEAR); Body Fluid QC Type(s) BF1Q,BF2Q; RBC /Synovial Fluid 29 /mm3 (0)
== END | disposition home or self-care (01) ==
LOC: LABSPEC 04-12 07:53
PROVIDERS: PCP Family Medicine; Visit Provider Internal Medicine Rheumatology
DX: M06.09 Rheumatoid arthritis without rheumatoid factor, multiple sites (principal); Z79.899 Other long term (current) drug therapy; R76.8 Other specified abnormal immunological findings in serum; M19.041 Primary osteoarthritis, right hand; M19.042 Primary osteoarthritis, left hand; M47.897 Other spondylosis, lumbosacral region; M25.562 Pain in left knee; J30.2 Other seasonal allergic rhinitis; I71.40 Abdominal aortic aneurysm, without rupture, unspecified
CPT/HCPCS: 87070; 87075; 87205; 89050; 89051; 89060

== ENCOUNTER → 2025-08-06 | Outpatient (CLI) | payer MEDICARE, OTHER, SELFPAY ==
[2025-08-06 10:47] LABS: Hematocrit 39.0 % (40-54); Hemoglobin 13.2 g/dL (13.0-16.5); Immature Granulocytes Count 0.010 X10^3/uL (0.0-0.0); Mean Corp Hgb Conc 33.8 g/dL (32-36); Mean Corpuscular Volume 88.8 fL (80-94); Mean Platelet Vol. 10.0 fl (6.2-12.0); NRBC Flagged by Analyzer 0 % (0-5); Platelet Count 244 K/mm3 (150-450); RBC Distribution Width CV 12.9 % (11.6-14.6); RBC Distribution Width SD 42.1 fl (35.1-43.9); Red Blood Count 4.39 M/mm3 (4.6-6.2); White Blood Count 4.4 K/mm3 (4.4-11.0)
[2025-08-06 11:37] LABS: AST(SGOT) 22 U/L (<=37); Alanine Aminotransfer ALT/SGPT 20 U/L (<=46); Albumin, Serum 4.0 g/dL (3.4-4.8); Alkaline Phosphatase 75 U/L (40-129); Anion Gap 11 (5-15); BUN 16 mg/dL (4-19); BUN/Creat Ratio 18.1 RATIO (10-20); Calcium,Total 9.0 mg/dL (7.6-11.0); Carbon Dioxide 22.7 mmol/L (21.0-32.0); Chloride 104 mmol/L (98-108); Globulin 2.5 g/dL (2.2-4.2); Glucose 90 mg/dL (70-99); Potassium 4.2 mmol/L (3.3-5.1)
== END | disposition home or self-care (01) ==
LOC: MTLAB 08:13
PROVIDERS: PCP Family Medicine; Referring Provider Internal Medicine Rheumatology; Visit Provider Internal Medicine Rheumatology
DX: M06.09 Rheumatoid arthritis without rheumatoid factor, multiple sites (principal); Z79.899 Other long term (current) drug therapy; R76.89 Other specified abnormal immunological findings in serum
CPT/HCPCS: 36415; 80053; 85025